=== PATIENT | male | born 1935 | race Caucasian/White ===

== ENCOUNTER 2017-01-15 00:53 | Inpatient (IN) ==
[2017-01-15] MEDS ORDERED: *HR* Morphine 2 MG/ML SYRINGE IVP ONE (01:12)
[2017-01-15] MEDS ORDERED: Ondansetron 4 MG/2 ML VIAL IVP ONE (01:12)
--- NOTE | 2017-01-15 01:15 | Emergency Department Note ---
Disposition Clinical Impression: Pancreatitis Qualifiers: Chronicity: acute Pancreatitis type: unspecified pancreatitis type Acute pancreatitis complication: unspecified Qualified Code(s): K85.90 - Acute pancreatitis without necrosis or infection, unspecified Disposition: Admitted As Inpatient Condition: Fair Referrals: Tamiko Cortes MD [Primary Care Provider] - Forms: ED Satisfaction Letter, Work/School Release Time of Disposition: 02:48 Abdominal Pain HPI - General Chief Complaint: ED Abdominal Pain Stated Complaint: abd pain, vomiting Time Seen by Provider: 01/15/17 01:02 Source: patient Mode of arrival: ambulatory Limitations: no limitations Nursing Notes Reviewed: Yes Vital Signs Reviewed: Yes - History of Present Illness HPI Narrative: An 81-year-old male with no previous abdominal surgeries, 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 The patient states he began expressing his abdominal pain roughly 3-4 hours ago. The patient states he has had 5 episodes of vomiting over the past 4 hours. The patient denies any black or bloody stools, hematemesis, chest pain, difficulty breathing. The patient denies any previous history of any other abdominal process or to this in the past. Patient denies any other complaints at this time and he is uncomfortable at this time. Pt Subjective Complaint: abdominal pain Onset (ago): hour(s) (4-5) Location: epigastric Pain Severity: severe Pain Scale: 8 Quality: stabbing Radiation: none Migration to: no migration Improves with: nothing Worsens with: nothing Associated symptoms: Reports: nausea, vomiting Treatments prior to arrival: none - Related Data Home Medications Medication Instructions Recorded Confirmed Atorvastatin Calcium [Lipitor] 80 mg PO DAILY 01/15/17 01/15/17 Finasteride [Proscar] 5 mg PO DAILY 01/15/17 01/15/17 Losartan Potassium 25 mg PO DAILY 01/15/17 01/15/17 Melatonin/Pyridoxine HCl (B6) 1 each PO HS PRN 01/15/17 01/15/17 [Melatonin 3 mg Tablet] Metoprolol Tartrate [Lopressor] 25 mg PO DAILY 01/15/17 01/15/17 Spironolactone [Aldactone] 25 mg PO BID 01/15/17 01/15/17 Tamsulosin [Flomax] 0.4 mg PO DAILY 01/15/17 01/15/17 Torsemide [Demadex] 20 mg PO DAILY 01/15/17 01/15/17 Warfarin Sodium 2.5 mg PO WD 01/15/17 01/15/17 Warfarin Sodium 5 mg PO 6XD 01/15/17 01/15/17 Allergies Allergy/AdvReac Type Severity Reaction Status Date / Time Sulfa (Sulfonamide Allergy Rash Verified 01/15/17 00:56 Antibiotics) All systems ED: reviewed and negative except as stated. Constitutional: Denies: fever, chills, weakness, weight change Cardiovascular: Denies: chest pain, palpitations, dyspnea on exertion, edema, syncope Respiratory: Denies: cough, dyspnea, wheezes, hemoptysis, stridor Gastrointestinal: Reports: abdominal pain, nausea, vomiting. Denies: diarrhea, constipation, hematemesis, melena, hematochezia Genitourinary: Denies: urgency, dysuria, frequency, hematuria Musculoskeletal: Denies: back pain, neck pain, arthralgia, myalgia Neurological: Denies: headache, weakness, numbness, paresthesias, confusion, abnormal gait, vertigo Abdominal Pain PMH - Past Medical History Medical history: Reports: atrial fibrillation, CHF, coronary artery disease, hyperlipidemia, hypertension, osteoporosis Male Surgical History: Reports: pacemaker/AICD Psychiatric history: Reports: no psych history - Social History Smoking status: Never smoker Alcohol use: Reports: none Drug use: Reports: none Physical Exam - General Limitations: no limitations General appearance: alert, in distress (Due to pain) - Head Head exam: atraumatic, normocephalic, normal inspection - Eye Eye exam: Present: normal appearance, PERRL, EOMI - ENT ENT exam: normal exam, normal oropharynx, mucous membranes moist - Neck Neck exam: Present: normal inspection, full ROM, trachea midline - Chest Chest inspection: Present: normal inspection, symmetric chest wall rise - Respiratory Respiratory exam: Present: normal lung sounds bilaterally - Cardiovascular Cardiovascular exam: Present: regular rate, normal rhythm, normal heart sounds - Abdominal Exam Abdominal exam: Present: soft, tenderness (Epigastric), Zavala's sign. Absent: distention, guarding, rebound, rigidity, psoas sign, obturator sign, Rovsing's sign, tenderness at McBurney's Point, pulsatile mass, hernia - Extremities Exam Extremities exam: Present: normal inspection, full ROM. Absent: tenderness, pedal edema Course Vital Signs Temperature 98.0 F 01/15/17 00:56 Pulse Rate 69 01/15/17 00:56 Respiratory Rate 18 01/15/17 00:56 Blood Pressure 128/72 01/15/17 00:56 O2 Sat by Pulse Oximetry 96 01/15/17 00:56 Temperature 98.0 F 01/15/17 00:56 Pulse Rate 78 01/15/17 01:46 Respiratory Rate 18 01/15/17 01:46 Blood Pressure 127/71 01/15/17 01:46 O2 Sat by Pulse Oximetry 95 01/15/17 02:09 Oxygen Delivery Oxygen Delivery Room Air Abdominal Pain - MDM Narrative Medical decision making narrative: Patient CT scan demonstrates acute pancreatitis. There are other review incidental findings noted as well including granulamtous disease as well as enlarged prostate. Patient made aware. The patient's lipase is elevated at 11, 915. The patient's vomiting and pain is under control at this time. He is resting comfortably in the bed. He will admit patient to the hospitalist. Accepted by Dr. Georges. - Lab Data Lab results reviewed: Yes I reviewed the patient's lab results. Result diagrams: 01/15/17 01:22 01/15/17 01:22 Lab Results 01/15/17 01/15/17 01/15/17 Range/Units 01:10 01:22 01:22 WBC 17.5 H (4.3-11.1) K/mcL RBC 4.71 (4.19-5.50) M/mcL Hgb 14.7 (12.9-16.9) g/dL Hct 44.9 (37.5-50.1) % MCV 95.3 (83.0-100.0) fL MCH 31.2 (28.0-33.3) pg MCHC 32.7 (31.6-35.5) g/dL RDW 14.0 (11.5-14.5) % Plt Count 171 (140-400) K/mcL MPV 10.6 (9.4-12.4) fL Immature Gran % 0.7 (0-4) % Seg Neutrophils % 89.5 % Lymphocytes % 4.5 % Monocytes % 4.5 % Eosinophils % 0.2 % Basophils % 0.6 % Neutrophils # 15.6 H (1.6-8.9) K/mcL Lymphocytes # 0.8 (0.6-4.6) K/mcL Monocytes # 0.8 (0.0-1.3) K/mcL Eosinophils # 0.0 (0.0-0.6) K/mcL Basophils # 0.1 (0.0-0.2) K/mcL PT 32.9 H (9.4-12.1) Seconds INR 3.0 APTT 39.1 H (26.0-36.0) Seconds Sodium (136-145) mEq/L Potassium (3.5-4.5) mEq/L Chloride (98-109) mEq/L Carbon Dioxide (19-29) mEq/L BUN (8-26) mg/dL Creatinine (0.72-1.25) mg/dL Est GFR ( Amer) (> 60) Est GFR (Non-Af Amer) (> 60) BUN/Creatinine Ratio (6-26) Glucose (70-99) mg/dL Calculated Osmolality (280-300) Lactic Acid (0.5-2.2) mmol/L Calcium (8.6-10.8) mg/dL Total Bilirubin (0.2-1.2) mg/dL AST (5-34) Units/L ALT (0-55) Units/L Alkaline Phosphatase (38-126) Units/L Troponin I (0-0.03) ng/mL Serum Total Protein (6.0-8.3) g/dL Albumin (3.5-5.0) g/dL Globulin (2.4-3.5) g/dL Albumin/Globulin Ratio (1.1-2.2) Lipase (8-78) Units/L Urine Color Yellow (Yellow) Urine Clarity Clear (Clear) Urine pH 5.5 (5.0-8.0) pH Units Ur Specific [place] 1.018 (1.010-1.025) Urine Protein Negative (Neg-Trace) mg/dL Urine Glucose (UA) Normal (Normal) mg/dL Urine Ketones Negative (Negative) mg/dL Urine Blood Negative (Negative) Urine Nitrite Negative (Negative) Urine Bilirubin Negative (Negative) Urine Urobilinogen Normal (Normal) mg/dL Ur Leukocyte Esterase Negative (Negative) Ur Culture Indicated? NO (NO) 01/15/17 01/15/17 01/15/17 Range/Units 01:22 01:22 01:22 WBC (4.3-11.1) K/mcL RBC (4.19-5.50) M/mcL Hgb (12.9-16.9) g/dL Hct (37.5-50.1) % MCV (83.0-100.0) fL MCH (28.0-33.3) pg MCHC (31.6-35.5) g/dL RDW (11.5-14.5) % Plt Count (140-400) K/mcL MPV (9.4-12.4) fL Immature Gran % (0-4) % Seg Neutrophils % % Lymphocytes % % Monocytes % % Eosinophils % % Basophils % % Neutrophils # (1.6-8.9) K/mcL Lymphocytes # (0.6-4.6) K/mcL Monocytes # (0.0-1.3) K/mcL Eosinophils # (0.0-0.6) K/mcL Basophils # (0.0-0.2) K/mcL PT (9.4-12.1) Seconds INR APTT (26.0-36.0) Seconds Sodium 140 (136-145) mEq/L Potassium 4.4 (3.5-4.5) mEq/L Chloride 104 (98-109) mEq/L Carbon Dioxide 22 (19-29) mEq/L BUN 29 H (8-26) mg/dL Creatinine 1.42 H (0.72-1.25) mg/dL Est GFR ( Amer) 58 L (> 60) Est GFR (Non-Af Amer) 48 L (> 60) BUN/Creatinine Ratio 20 (6-26) Glucose 108 H (70-99) mg/dL Calculated Osmolality 296 (280-300) Lactic Acid 1.1 (0.5-2.2) mmol/L Calcium 8.9 (8.6-10.8) mg/dL Total Bilirubin 0.5 (0.2-1.2) mg/dL AST 31 (5-34) Units/L ALT 23 (0-55) Units/L Alkaline Phosphatase 93 (38-126) Units/L Troponin I 0.02 (0-0.03) ng/mL Serum Total Protein 7.2 (6.0-8.3) g/dL Albumin 3.8 (3.5-5.0) g/dL Globulin 3.4 (2.4-3.5) g/dL Albumin/Globulin Ratio 1.1 (1.1-2.2) Lipase 83381 H (8-78) Units/L Urine Color (Yellow) Urine Clarity (Clear) Urine pH (5.0-8.0) pH Units Ur Specific [place] (1.010-1.025) Urine Protein (Neg-Trace) mg/dL Urine Glucose (UA) (Normal) mg/dL Urine Ketones (Negative) mg/dL Urine Blood (Negative) Urine Nitrite (Negative) Urine Bilirubin (Negative) Urine Urobilinogen (Normal) mg/dL Ur Leukocyte Esterase (Negative) Ur Culture Indicated? (NO) - Radiology Data Radiology results reviewed: Yes I reviewed the patient's radiology results. - EKG Data EKG attestation: Yes I reviewed and interpreted this EKG. EKG results narrative: Heart rate 80 bpm. QTc 467 ms. Normal axis. Normal sinus rhythm with electronic ventricular pacemaker. No ST elevation or ST depression noted. PVC noted. Similar to EKG from 09/08/2010. No acute changes noted. Attestation Statement - Attestation Attestation: I, Les Beckwith MD, personally evaluated this patient and discussed their management with the resident physician. I reviewed the resident's note and agree with the documented findings, medical decision making, and plan of care. 81-year-old male presents to the emergency department with a complaint of acute onset of nausea and vomiting and epigastric abdominal pain about 8 PM this evening. He states he vomited about 7 times. The pain radiates through to the back. No fever. No diarrhea. No prior history of similar problems. On examination patient is a well-developed well-nourished elderly male in no acute distress. He is alert and oriented 3. There is no cyanosis or diaphoresis. Chest is nontender to palpation. Breath sounds are clear and equal bilaterally. Heart regular rate and rhythm. Abdomen soft with normal bowel sounds. Mild epigastric tenderness. No guarding or rebound tenderness. Labs reviewed. WBC 17.5. Lipase 11,915. CT shows acute pancreatitis. The hospitalist, Dr. Georges, was consulted and accepted admission of the patient.
[2017-01-15 01:19] LABS: Bilirubin,Urine Negative (Negative); Blood,Urine Negative (Negative); Clarity,Urine Clear (Clear); Color,Urine Yellow (Yellow); Glucose,Urine (UA) Normal (Normal); Ketones,Urine Negative (Negative); Leukocyte Esterase,Urine Negative (Negative); Nitrite,Urine Negative (Negative); PH,Urine 5.5 pH Units (5.0-8.0); Protein,Urine Negative (Neg-Trace); Specific Gravity,Urine 1.018 (1.010-1.025); Urobilinogen,Urine Normal (Normal)
[2017-01-15 01:32] LABS: Basophils # 0.1 K/mcL (0.0-0.2); Basophils % 0.6 %; Eosinophils % 0.2 %; Hematocrit 44.9 % (37.5-50.1); Hemoglobin 14.7 g/dL (12.9-16.9); Immature Granulocytes % 0.7 % (0-4); Lymphocytes # 0.8 K/mcL (0.6-4.6); Lymphocytes % 4.5 %; Mean Corpuscular HGB Conc 32.7 g/dL (31.6-35.5); Mean Corpuscular Hemoglobin 31.2 pg (28.0-33.3); Mean Corpuscular Volume 95.3 fL (83.0-100.0); Mean Platelet Volume 10.6 fL (9.4-12.4); Monocytes # 0.8 K/mcL (0.0-1.3); Monocytes % 4.5 %; Neutrophils # 15.6 K/mcL (1.6-8.9); Platelet Count 171 K/mcL (140-400); Red Blood Count 4.71 M/mcL (4.19-5.50); Segmented Neutrophils % 89.5 %
[2017-01-15 01:37] LABS: Prothrombin Time 32.9 Seconds (9.4-12.1)
[2017-01-15 01:39] LABS: Activated Partial Thrombo Time 39.1 Seconds (26.0-36.0)
[2017-01-15 01:46] LABS: Albumin 3.8 g/dL (3.5-5.0); Albumin/Globulin Ratio 1.1 (1.1-2.2); Bilirubin,Total 0.5 mg/dL (0.2-1.2); Calcium 8.9 mg/dL (8.6-10.8); Globulin 3.4 g/dL (2.4-3.5); Potassium 4.4 mEq/L (3.5-4.5); Total Protein 7.2 g/dL (6.0-8.3)
[2017-01-15] MEDS ORDERED: 0.9 % Sodium Chloride 1,000 ML IVC ONE (02:01)
--- NOTE | 2017-01-15 03:29 | Internal Med History&Physical ---
Date of Encounter: 01/15/17 Time of Encounter: 03:26 Assessment and Plan (1) Acute pancreatitis Current visit: Yes Status: Acute Etiology unclear. Maybe related to alcohol intake. He has tiny stones in the gallbladder, but transaminases, alkaline phosphatase and bilirubin are normal. Repeat liver function tests in morning. Right upper quadrant ultrasound. Gastroenterology consultation. We keep patient strictly NPO, hydrate, pain control with morphine. His white count to 17,000. He has no fever. CT scan shows no evidence of abscess or necrotizing pancreatitis. Nonetheless CT scan was non-contrasted Qualifiers: Qualified Code(s): K85.90 - Acute pancreatitis without necrosis or infection , unspecified (2) Atrial fibrillation Current visit: Yes Status: Acute He is on Coumadin. This can be somewhat concerning impatient with severe acute pancreatitis. Qualifiers: Qualified Code(s): I48.91 - Unspecified atrial fibrillation (3) History of heart valve replacement with porcine valve Current visit: Yes Status: Acute INR is 3. Coumadin can be somewhat concerning impatient with severe acute pancreatitis. Internal Medicine - H&P: HPI Chief complaint: abdominal pain History of present illness: Mr. 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 3 hours prior to arrival to emergency room patients started experiencing severe 8 out of 10 in severity upper mid abdominal pain radiating to his back associated with nausea recurrent episodes of nonbloody emesis. he had approximately 7 episodes of vomiting prior to arrival to ER. Noncontrast CT scan of abdomen and pelvis shows acute pancreatitis. Patient denies any prior similar episodes. Patient denies any fever or chills. Denies any known prior history of gallbladder disease. Drinks alcohol occasionally as drink with yesterday 2 to 3 drinks on weekends. Patient takes Coumadin for prothetic valve and atrial fibrillation Past Med Surg Social Fam HX - Past Medical History Medical history: atrial fibrillation, CHF, coronary artery disease, hyperlipidemia, hypertension, osteoporosis Psychiatric history: no psych history - Social History Smoking Status: Never smoker Smokeless Tobacco Status: No Alcohol use: none Drug use: none Internal Medicine - H&P: Meds Atorvastatin Calcium [Lipitor] 80 mg PO DAILY 01/15/17 [History] Finasteride [Proscar] 5 mg PO DAILY 01/15/17 [History] Losartan Potassium 25 mg PO DAILY 01/15/17 [History] Melatonin/Pyridoxine HCl (B6) [Melatonin 3 mg Tablet] 1 each PO HS PRN 01/15/17 [History] Metoprolol Tartrate [Lopressor] 25 mg PO DAILY 01/15/17 [History] Spironolactone [Aldactone] 25 mg PO BID 01/15/17 [History] Tamsulosin [Flomax] 0.4 mg PO DAILY 01/15/17 [History] Torsemide [Demadex] 20 mg PO DAILY 01/15/17 [History] Warfarin Sodium 2.5 mg PO WD 01/15/17 [History] Warfarin Sodium 5 mg PO 6XD 01/15/17 [History] 3 Allergy/AdvReac Type Severity Reaction Status Date / Time Sulfa (Sulfonamide Allergy Rash Verified 01/15/17 00:56 Antibiotics) All Systems PM: A 10-system review of systems was performed and is negative for pertinent findings except as documented above in the HPI. Review of systems: 10 point review of systems is negative except for HPI - Constitutional Vitals: Temp Pulse Resp BP Pulse Ox 98.0 F 78 18 127/71 95 01/15/17 00:56 01/15/17 01:46 01/15/17 01:46 01/15/17 01:46 01/15/17 02:09 Exam: Gen.: patient is alert oriented times 3 not in distress. Cardiac: Audible metallic click of mitral valve chest: fair air entry. no active wheezing. No crackles or bronchial breathing. abdomen: soft tenderness in upper mid abdomen. No rebound tenderness, guarding or rigidity neuro: no focal deficit Internal Med - H&P Results - Labs CBC & Chem 7: 01/15/17 01:22 01/15/17 01:22
[2017-01-15] MEDS: *HR* Morphine 2 MG/ML SYRINGE IVP PRN ×2 (04:36→16:12)
[2017-01-15] MEDS: D5% in 0.9% NACL 1,000 ML IVC SCH ×3 (04:37→23:47)
[2017-01-15] MEDS: Pantoprazole 40 MG VIAL IVP SCH (08:42)
[2017-01-15] MEDS: Finasteride 5 MG TABLET PO SCH (08:42)
[2017-01-15] MEDS: Fluticasone Propionate Nasal 50 MCG/SPRAY BOTTLE NS SCH (08:43)
[2017-01-15 08:59] LABS: Basophils % 0.3 %; Eosinophils % 0.1 %; Immature Granulocytes % 0.3 % (0-4); Lymphocytes # 0.4 K/mcL (0.6-4.6); Lymphocytes % 3.3 %; Mean Corpuscular HGB Conc 33.3 g/dL (31.6-35.5); Mean Corpuscular Volume 95.9 fL (83.0-100.0); Mean Platelet Volume 10.4 fL (9.4-12.4); Monocytes # 0.4 K/mcL (0.0-1.3); Monocytes % 3.2 %; Neutrophils # 11.1 K/mcL (1.6-8.9); Platelet Count 146 K/mcL (140-400); Red Blood Count 4.38 M/mcL (4.19-5.50); Red Cell Distribution Width 14.3 % (11.5-14.5); Segmented Neutrophils % 92.8 %
[2017-01-15 09:17] LABS: Chol/HDL Ratio 2.5 (0-4.9)
[2017-01-15 09:19] LABS: Alanine Aminotransferase 21 Units/L (0-55); Albumin 3.5 g/dL (3.5-5.0); Albumin/Globulin Ratio 1.3 (1.1-2.2); Alkaline Phosphatase 84 Units/L (38-126); Aspartate Amino Transferase 25 Units/L (5-34); BUN/Creatinine Ratio 21 (6-26); Bilirubin,Direct 0.3 mg/dL (0.0-0.5); Bilirubin,Indirect 0.3 mg/dL (0.0-1.2); Bilirubin,Total 0.6 mg/dL (0.2-1.2); Blood Urea Nitrogen 24 mg/dL (8-26); Calcium 8.3 mg/dL (8.6-10.8); Carbon Dioxide 27 mEq/L (19-29); Chloride 108 mEq/L (98-109); Globulin 2.7 g/dL (2.4-3.5); Glucose 177 mg/dL (70-99); Osmolality,Calculated 302 (280-300); Potassium 4.3 mEq/L (3.5-4.5); Sodium 142 mEq/L (136-145); Total Protein 6.2 g/dL (6.0-8.3); eGFR For African Americans > 60 (> 60); eGFR For Non-African Americans > 60 (> 60)
[2017-01-16] MEDS: D5% in 0.9% NACL 1,000 ML IVC SCH ×2 (04:44→13:44)
[2017-01-16] MEDS: Ondansetron 4 MG/2 ML VIAL IVP PRN ×4 (06:49→20:50)
[2017-01-16] MEDS: Fluticasone Propionate Nasal 50 MCG/SPRAY BOTTLE NS SCH (07:28)
[2017-01-16] MEDS: Finasteride 5 MG TABLET PO SCH (07:30)
[2017-01-16] MEDS: Pantoprazole 40 MG VIAL IVP SCH (07:31)
[2017-01-16 07:55] LABS: Basophils # 0.1 K/mcL (0.0-0.2); Basophils % 0.3 %; Hematocrit 41.4 % (37.5-50.1); Hemoglobin 13.5 g/dL (12.9-16.9); Immature Granulocytes % 0.6 % (0-4); Lymphocytes # 0.3 K/mcL (0.6-4.6); Lymphocytes % 1.9 %; Mean Corpuscular HGB Conc 32.6 g/dL (31.6-35.5); Mean Corpuscular Hemoglobin 31.5 pg (28.0-33.3); Mean Corpuscular Volume 96.5 fL (83.0-100.0); Monocytes # 0.9 K/mcL (0.0-1.3); Monocytes % 5.3 %; Neutrophils # 14.8 K/mcL (1.6-8.9); Platelet Count 143 K/mcL (140-400); Red Blood Count 4.29 M/mcL (4.19-5.50); Red Cell Distribution Width 14.8 % (11.5-14.5); Segmented Neutrophils % 91.9 %
[2017-01-16 08:04] LABS: INR 4.7
[2017-01-16 08:05] LABS: Prothrombin Time 52.1 Seconds (9.4-12.1)
[2017-01-16 08:32] LABS: BUN/Creatinine Ratio 12 (6-26); Calcium 8.2 mg/dL (8.6-10.8); Carbon Dioxide 23 mEq/L (19-29); Chloride 114 mEq/L (98-109); Glucose 160 mg/dL (70-99); Osmolality,Calculated 298 (280-300); Potassium 3.6 mEq/L (3.5-4.5); Sodium 143 mEq/L (136-145); eGFR For African Americans > 60 (> 60); eGFR For Non-African Americans > 60 (> 60)
[2017-01-16 08:33] LABS: Blood Urea Nitrogen 10 mg/dL (8-26)
--- NOTE | 2017-01-16 10:46 | Gastroenterology Consult Note ---
<Felicia Cabrera - Last Filed: 01/16/17 15:55> Date of Encounter: 01/16/17 Time of Encounter: 09:00 - Assessment and plan (1) Acute pancreatitis Current Visit: Yes Status: Acute Assessment and plan: Lipase is improving. Continue IVF and NPO. Monitor labs. Needs surgery consult for possible cholecystectomy. - Time Spent With Patient Total time spent is greater than 50% in coordination of care (as documented) at patient's floor/unit and/or counseling patient: GI History of Present Illness - Data of Consult Patient: new to practice Consult date: 01/16/17 Requesting Physician: Gumaro Maravilla - Consult Narrative Reason for consult: abdominal pain History of present illness: Mr. Taylor is a 81 year old male who presented with abdominal pain, nausea and vomiting. He has a pmhx of valvular heart disease with replacements and is on coumadin at home. He also has a hx of a-fib, CHF, CAD, HLD, HTN and osteoporosis. He reports having a couple alcoholic drinks on Monday then began having upper abdominal pain, nausea and vomiting x 7 episodes. He reports that he drinks 2-3 drinks Fridays through Sundays but none during the week. He denies any diarrhea, bloody stools or constipations. He reports daily BMs. He denies any other sick contacts. He had low grade fever last night. He was started on antibiotics and has been NPO. [place] admission [place] [address] and has decreased to 519, INR today 4.7, total bili 0.6, ast 25 alt 21, albumin 3.[address] abdomen showed acute pancreatitis, cholelithiasis and diverticulosis. Abdominal ultrasound showed gallbladder polyp and gallbladder wall thickening. Colonoscopy: 11 years ago EGD: denies NSAIDS: denies ASA: denies Anticougulants: coumadin Past Med Surg Social Fam HX - Past Medical History Medical history: atrial fibrillation, CHF, coronary artery disease, hyperlipidemia, hypertension, osteoporosis Psychiatric history: no psych history - Social History Smoking Status: Never smoker Smokeless Tobacco Status: No Alcohol use: none Drug use: none - Gastrointestinal Additional Comments: GI: as per [facility] GENERAL: denies fever, has some chills EYES: denies yellow discoloration ENT: denies pain with swallowing or difficulty swallowing CARDIO: denies chest pain, palpitations RESP: No Shortness of breath with exertion : reports dark colored urine NEURO: denies any weakness HEME: Denies any bruising MS: denies joint pain, joint swelling or back pain. DERM: denies rash or itching PSYCH: Denies history of anxiety or depression - Constitutional Vitals: Temp Pulse Resp BP Pulse Ox 99.7 F H 70 15 134/78 98 01/16/17 06:47 01/16/17 06:47 01/16/17 06:47 01/16/17 06:47 01/16/17 06:47 Exam: CONSTITUTIONAL:~alert, no acute distress.~HEAD:~normocephalic.~EYES:~no jaundice.~NECK:~no obvious swelling.~HEART:~regular rate and rhythm, no murmurs. ~LUNGS:~bilateral good air entry.~ABDOMEN:~non distended, soft, tenderness to periumbilical area, no masses pulpable, no organomegaly.~RECTAL EXAM:~Deferred.~ EXTREMITIES:~no clubbing, cyanosis or edema.~SKIN:~no stigmata of chronic liver disease.~NEUROLOGIC:~no obvious focal defect.~~~~ Results - Labs CBC & Chem 7: 01/16/17 07:48 01/16/17 07:48 Labs: Last Result Calcium 8.2 mg/dL (8.6-10.8) L 01/16/17 07:48 Troponin I 0.02 ng/mL (0-0.03) 01/15/17 01:22 C-Reactive Protein 4 mg/L (Less than 5) 01/15/17 01:22 Triglycerides 66 mg/dL (< 150) 01/15/17 08:45 Entire Visit Hgb 13.5 g/dL (12.9-16.9) 01/16/17 07:48 Hct 41.4 % (37.5-50.1) 01/16/17 07:48 PT 52.1 Seconds (9.4-12.1) H* D 01/16/17 07:48 Total Bilirubin 0.6 mg/dL (0.2-1.2) 01/15/17 08:45 AST 25 Units/L (5-34) 01/15/17 08:45 ALT 21 Units/L (0-55) 01/15/17 08:45 Lipase 519 Units/L (8-78) H 01/16/17 07:48 - ABG ABG results: PT/INR, D-dimer PT 52.1 Seconds (9.4-12.1) H* D 01/16/17 07:48 - Impressions Impressions Abdomen Ultrasound 01/16/17 08:00 IMPRESSION: 1. Echogenic focus in the gallbladder measuring up to 1.4 cm with no mobility, favored to represent a gallbladder polyp. Given size, internal surgical consultation is recommended. Questionable additional 0.2 cm gallbladder polyp 2. While there is no evidence of choledocholithiasis, the common bile duct is difficult evaluate by sonography and was suboptimally evaluated on this study due to overlying bowel gas. If there is persistent clinical concern, CT can be performed for further evaluation. 3. Nonspecific gallbladder wall thickening. D/ / 01/16/2017 08:57:[address] MD / reg Interpreting Provider: Noel Lane MD Consult Discharge Plan - Plan Referrals: Tamiko Cortes MD [Primary Care Provider] - <MarshaKishore - Last Filed: 01/16/17 17:50> Date of Encounter: 01/16/17 Time of Encounter: 14:00 - Time Spent With Patient Total time spent is greater than 50% in coordination of care (as documented) at patient's floor/unit and/or counseling patient: GI History of Present Illness - Data of Consult Requesting Physician: Gumaro Maravilla - Consult Narrative History of present illness: Mr. Taylor is a 81 year old male - Constitutional Vitals: Temp Pulse Resp BP Pulse Ox 99.2 F 79 15 123/70 97 01/16/17 15:36 01/16/17 15:36 01/16/17 15:36 01/16/17 15:36 01/16/17 15:36 Results - Labs CBC & Chem 7: 01/16/17 07:48 01/16/17 07:48 Labs: Last Result Calcium 8.2 mg/dL (8.6-10.8) L 01/16/17 07:48 Troponin I 0.02 ng/mL (0-0.03) 01/15/17 01:22 C-Reactive Protein 4 mg/L (Less than 5) 01/15/17 01:22 Triglycerides 66 mg/dL (< 150) 01/15/17 08:45 Entire Visit Hgb 13.5 g/dL (12.9-16.9) 01/16/17 07:48 Hct 41.4 % (37.5-50.1) 01/16/17 07:48 PT 52.1 Seconds (9.4-12.1) H* D 01/16/17 07:48 Total Bilirubin 0.6 mg/dL (0.2-1.2) 01/15/17 08:45 AST 25 Units/L (5-34) 01/15/17 08:45 ALT 21 Units/L (0-55) 01/15/17 08:45 Lipase 519 Units/L (8-78) H 01/16/17 07:48 - ABG ABG results: PT/INR, D-dimer PT 52.1 Seconds (9.4-12.1) H* D 01/16/17 07:48 - Impressions Impressions Abdomen Ultrasound 01/16/17 08:00 IMPRESSION: 1. Echogenic focus in the gallbladder measuring up to 1.4 cm with no mobility, favored to represent a gallbladder polyp. Given size, internal surgical consultation is recommended. Questionable additional 0.2 cm gallbladder polyp 2. While there is no evidence of choledocholithiasis, the common bile duct is difficult evaluate by sonography and was suboptimally evaluated on this study due to overlying bowel gas. If there is persistent clinical concern, CT can be performed for further evaluation. 3. Nonspecific gallbladder wall thickening. D/ / 01/16/2017 08:57:[address] MD / reg Interpreting Provider: Noel Lane MD - Attending Attestation I examined this patient and my medical decision-making was reviewed with the Resident Physician. I agree with the documented findings, disposition and treatment plan as described except to the extent set forth below. pt with GS pancreatitis. GB with 15 mm polyp. Rec: Surgical eval for rama
--- NOTE | 2017-01-16 18:40 | Electrocardiograph Report ---
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
--- NOTE | 2017-01-16 18:52 | Internal Med Progress Note ---
Date of Encounter: 01/16/17 Time of Encounter: 10:00 - Assessment and plan (1) Acute pancreatitis Current Visit: Yes Status: Acute Assessment and plan: -Patient reports that abdominal discomfort has improved. -Lipase levels have improved [id number] to [id number]. -Right upper quadrant ultrasound showed large polyp in gallbladder and surgical consult recommended. -Patient adamant about leaving hospital by Monday to make a trip. -Patient's symptoms are improving and labs are improving as above so we will consider patient to follow up with surgery as an outpatient. Qualifiers: Pancreatitis type: unspecified pancreatitis type Acute pancreatitis complication: unspecified Qualified Code(s): K85.90 - Acute pancreatitis without necrosis or infection, unspecified (2) Atrial fibrillation Current Visit: Yes Status: Acute Assessment and plan: -Rate controlled; continue home meds -Coumadin currently being held due to supratherapeutic levels. Qualifiers: Atrial fibrillation type: chronic Qualified Code(s): I48.2 - Chronic atrial fibrillation (3) History of heart valve replacement with porcine valve Current Visit: Yes Status: Acute Assessment and plan: -Coumadin being held as above - Subjective Interval history: Patient reports that abdominal discomfort has improved this morning and lipase has improved as well. - Constitutional Vitals: Temp Pulse Resp BP Pulse Ox 99.2 F 79 15 123/70 97 01/16/17 15:36 01/16/17 15:36 01/16/17 15:36 01/16/17 15:36 01/16/17 15:36 - GI/Abdominal GI/Abdominal exam: Present: normal bowel sounds, soft, tenderness (Mild tenderness), no peritoneal signs. Absent: distended Internal Medicine: Result - Labs CBC & Chem 7: 01/16/17 07:48 01/16/17 07:48 Labs: Short CBC 01/16/17 Range/Units 07:48 WBC 16.1 H (4.3-11.1) K/mcL Hgb 13.5 (12.9-16.9) g/dL Hct 41.4 (37.5-50.1) % Plt Count 143 (140-400) K/mcL Neutrophils # 14.8 H (1.6-8.9) K/mcL BMP 01/16/17 07:48 Sodium 143 Potassium 3.6 Chloride 114 H Carbon Dioxide 23 BUN 10 D Creatinine 0.86 Glucose 160 H Calcium 8.2 L - ABG Interpretation ABG results: PT/INR, D-dimer PT 52.1 Seconds (9.4-12.1) H* D 01/16/17 07:48 - Impressions Impressions Abdomen Ultrasound 01/16/17 08:00 IMPRESSION: 1. Echogenic focus in the gallbladder measuring up to 1.4 cm with no mobility, favored to represent a gallbladder polyp. Given size, internal surgical consultation is recommended. Questionable additional 0.2 cm gallbladder polyp 2. While there is no evidence of choledocholithiasis, the common bile duct is difficult evaluate by sonography and was suboptimally evaluated on this study due to overlying bowel gas. If there is persistent clinical concern, CT can be performed for further evaluation. 3. Nonspecific gallbladder wall thickening. D/ / 01/16/2017 08:57:[address] MD / reg Interpreting Provider: Noel Lane MD - VTE Documentation of Mechanical Device: Intermittent pneumatic compression device Consult Discharge Plan - Plan Referrals: Tamiko Cortes MD [Primary Care Provider] -
[2017-01-16] MEDS: *HR* Morphine 2 MG/ML SYRINGE IVP PRN (20:50)
[2017-01-17] MEDS: D5% in 0.9% NACL 1,000 ML IVC SCH ×2 (03:00→15:48)
[2017-01-17] MEDS: Spironolactone 25 MG TABLET PO SCH (07:27)
[2017-01-17] MEDS: Torsemide 20 MG TABLET PO SCH (07:28)
[2017-01-17] MEDS: Fluticasone Propionate Nasal 50 MCG/SPRAY BOTTLE NS SCH (07:28)
[2017-01-17] MEDS: Pantoprazole 40 MG VIAL IVP SCH (07:29)
[2017-01-17] MEDS: Finasteride 5 MG TABLET PO SCH (07:29)
[2017-01-17 08:09] LABS: Basophils # 0.1 K/mcL (0.0-0.2); Basophils % 0.4 %; Eosinophils # 0.1 K/mcL (0.0-0.6); Eosinophils % 0.3 %; Hematocrit 39.7 % (37.5-50.1); Hemoglobin 12.9 g/dL (12.9-16.9); Immature Granulocytes % 0.6 % (0-4); Lymphocytes # 0.5 K/mcL (0.6-4.6); Lymphocytes % 2.6 %; Mean Corpuscular HGB Conc 32.5 g/dL (31.6-35.5); Mean Corpuscular Hemoglobin 31.7 pg (28.0-33.3); Mean Corpuscular Volume 97.5 fL (83.0-100.0); Mean Platelet Volume 10.3 fL (9.4-12.4); Monocytes # 1.1 K/mcL (0.0-1.3); Monocytes % 6.3 %; Neutrophils # 15.5 K/mcL (1.6-8.9); Platelet Count 139 K/mcL (140-400); Red Blood Count 4.07 M/mcL (4.19-5.50); Red Cell Distribution Width 14.6 % (11.5-14.5); Segmented Neutrophils % 89.8 %
[2017-01-17 08:20] LABS: INR 4.7; Prothrombin Time 52.7 Seconds (9.4-12.1)
[2017-01-17 08:21] LABS: BUN/Creatinine Ratio 8 (6-26); Blood Urea Nitrogen 7 mg/dL (8-26); Calcium 8.2 mg/dL (8.6-10.8); Carbon Dioxide 23 mEq/L (19-29); Chloride 109 mEq/L (98-109); Glucose 108 mg/dL (70-99); Osmolality,Calculated 287 (280-300); Potassium 3.6 mEq/L (3.5-4.5); Sodium 139 mEq/L (136-145); eGFR For African Americans > 60 (> 60); eGFR For Non-African Americans > 60 (> 60)
[2017-01-17 12:05] LABS: Albumin/Globulin Ratio 0.9 (1.1-2.2); Amylase 166 Units/L (25-125); Bilirubin,Direct 0.6 mg/dL (0.0-0.5); Bilirubin,Indirect 0.9 mg/dL (0.0-1.2); Lipase 97 Units/L (8-78); Total Protein 5.7 g/dL (6.0-8.3)
[2017-01-17 12:06] LABS: Albumin 2.7 g/dL (3.5-5.0); Bilirubin,Total 1.5 mg/dL (0.2-1.2)
--- NOTE | 2017-01-17 12:14 | Event Note ---
Date of Encounter: 01/17/17 Time of Encounter: 09:10 I independently saw and examined this patient on 01/17/2017, I have reviewed his chart as well. Diagnoses and management plan was discussed with the patient, and the resident physician. 81-year-old male with past medical history of atrial fibrillation on Coumadin, he is admitted and being managed for acute pancreatitis. Workup revealed a gallbladder polyp, gallbladder wall thickening without evidence of choledocholithiasis. General surgery and gastroenterology have been following. On evaluation at the bedside this morning, the patient denies any abdominal pain , he denies new complaints he is adamant on being discharged home tomorrow. However, his white count continues to trend up, he had one episode of low-grade fever overnight 100.1 and his INR remains supratherapeutic. He also now has hyperbilirubinemia, his lipase is 97 now and was [id number] on admission. He has no transaminitis He is pending surgical evaluation. On physical examination, he is afebrile at time of examination, she is not tachycardic is in no form of respiratory distress.. His abdomen is soft and nontender, Zavala sign is negative. He has no pedal edema. His chest is clear to auscultation bilaterally. Assessment and plan #1 acute pancreatitis: Resolving, continue clear liquid diet. Etiology of pancreatitis may include choledocholithiasis/gallbladder polyp. GI is following #2 supratherapeutic INR: Continue to hold Coumadin. Patient is currently not bleeding. He has no transaminitis. Continue to monitor INR. #3 atrial fibrillation: Heart rate is controlled. Continue current management. #4 hyperbilirubinemia. Possibly secondary to gallbladder polyp. Surgery is on board. #5 gallbladder polyp: Surgery evaluation. #6 Leukocytosis: Worsening, Etiology unknown at this time, patient had a low grade fever overnight, possible abdominal source, he does not have an acute abdomen. Abdomen ultrasound showed nonspecific gall bladder wall thickening. Obtain blood culture and start empiric Zosyn. We will deescalate prn Rest of details as in the resident physicians documentation.
--- NOTE | 2017-01-17 12:58 | Internal Med Progress Note ---
<Pennie Leigh - Last Filed: 01/17/17 12:54> Date of Encounter: 01/17/17 Time of Encounter: 12:54 - Assessment and plan (1) Acute pancreatitis Current Visit: Yes Status: Acute Assessment and plan: Patient reports that abdominal discomfort has resolved Lipase levels have improved [id number] to 519 WBC count increased slightly from 16.[address] abdomen showed acute pancreatitis, no abscess or pseudo cyst. Cholelithiasis. Ultrasound showed large polyp 1.4cm and 0.2cm polyp in gallbladder and surgical consult recommended Patient adamant about leaving hospital by Monday to make a trip -continue clear liquid diet -continue IV fluids -GI consulted and recommended surgery consult -Surgery consulted -will continue to monitor Qualifiers: Pancreatitis type: unspecified pancreatitis type Acute pancreatitis complication: unspecified Qualified Code(s): K85.90 - Acute pancreatitis without necrosis or infection, unspecified (2) Supratherapeutic INR Current Visit: Yes Status: Acute Assessment and plan: Patients INR is supratherapeutic, 4.7 no active bleeding at this time -will continue to hold Coumadin -Will continue to monitor INR (3) Atrial fibrillation Current Visit: Yes Status: Acute Assessment and plan: Rate controlled. continue home meds, metoprolol Coumadin currently being held due to supratherapeutic levels Qualifiers: Atrial fibrillation type: chronic Qualified Code(s): I48.2 - Chronic atrial fibrillation (4) Hyperbilirubinemia Current Visit: Yes Status: Acute Assessment and plan: Hyperbilirubinemia, total bilirubin 1.5, direct bilirubin 0.6 possibly due to the gallbladder polyp Ultrasound did not show evidence of Choledocholithiasis - surgery is following -will continue to monitor bilirubin level (5) Gallbladder polyp Current Visit: Yes Status: Acute Assessment and plan: Ultrasound showed large polyp 1.4cm and 0.2cm polyp in gallbladder and surgical consult recommended see plan above (6) Leukocytosis Current Visit: Yes Status: Acute Assessment and plan: WBC has increased from 16.1 yesterday to 17.2 Today Etiology is currently unknown Patient reports resolved abdominal pain. The abdomen with soft and non-guarding on exam. -Will start empiric zosyn Qualifiers: Qualified Code(s): D72.829 - Elevated white blood cell count, unspecified - Subjective Interval history: Patient is sitting up in bed comfortably watching television. He stated that his abdominal pain is resolved and he is adamant about being discharged tomorrow. He denies fever, chills, nausea, vomiting. He has no complaints. - Constitutional Vitals: Temp Pulse Resp BP Pulse Ox 99.0 F 68 15 109/65 92 01/17/17 10:37 01/17/17 10:37 01/17/17 10:37 01/17/17 10:37 01/17/17 10:37 Exam: Gen.: Vitals noted. No acute distress. AAOx3 HEENT: oropharynx clear, Normocephalic, atraumatic Neck: Supple. No adenopathy. Cardiac: RRR, audible click, +S1/S2 Pulmonary: CTA bilaterally, no wheezes, rales or rhonchi, equal chest expansion Abdomen: soft, nontender, Bowel sounds noted, no guarding, negative Zavala Extremities: no BLE edema, nontender calf, no cyanosis or clubbing Neuro: A&Ox3, moves all extremities Psych: Appropriate mood and behavior Internal Medicine: Result - Labs CBC & Chem 7: 01/17/17 08:02 01/17/17 08:02 Labs: Short CBC 01/17/17 Range/Units 08:02 WBC 17.2 H (4.3-11.1) K/mcL Hgb 12.9 (12.9-16.9) g/dL Hct 39.7 (37.5-50.1) % Plt Count 139 L (140-400) K/mcL Neutrophils # 15.5 H (1.6-8.9) K/mcL BMP 01/17/17 08:02 Sodium 139 Potassium 3.6 Chloride 109 Carbon Dioxide 23 BUN 7 L Creatinine 0.88 Glucose 108 H Calcium 8.2 L Liver Function 01/17/17 Range/Units 11:14 Total Bilirubin 1.5 H D (0.2-1.2) mg/dL Direct Bilirubin 0.6 H (0.0-0.5) mg/dL AST 20 (5-34) Units/L ALT 15 (0-55) Units/L Alkaline Phosphatase 70 (38-126) Units/L Albumin 2.7 L D (3.5-5.0) g/dL - ABG Interpretation ABG results: PT/INR, D-dimer PT 52.7 Seconds (9.4-12.1) H* 01/17/17 08:02 - VTE Documentation of Mechanical Device: Intermittent pneumatic compression device Consult Discharge Plan - Plan Referrals: Tamiko Cortes MD [Primary Care Provider] - <Brian Flanagan T - Last Filed: 01/17/17 13:54> Date of Encounter: 01/17/17 - Constitutional Vitals: Temp Pulse Resp BP Pulse Ox 99.0 F 68 15 109/65 92 01/17/17 10:37 01/17/17 10:37 01/17/17 10:37 01/17/17 10:37 01/17/17 10:37 Internal Medicine: Result - Labs CBC & Chem 7: 01/17/17 08:02 01/17/17 08:02 Labs: Short CBC 01/17/17 Range/Units 08:02 WBC 17.2 H (4.3-11.1) K/mcL Hgb 12.9 (12.9-16.9) g/dL Hct 39.7 (37.5-50.1) % Plt Count 139 L (140-400) K/mcL Neutrophils # 15.5 H (1.6-8.9) K/mcL BMP 01/17/17 08:02 Sodium 139 Potassium 3.6 Chloride 109 Carbon Dioxide 23 BUN 7 L Creatinine 0.88 Glucose 108 H Calcium 8.2 L Liver Function 01/17/17 Range/Units 11:14 Total Bilirubin 1.5 H D (0.2-1.2) mg/dL Direct Bilirubin 0.6 H (0.0-0.5) mg/dL AST 20 (5-34) Units/L ALT 15 (0-55) Units/L Alkaline Phosphatase 70 (38-126) Units/L Albumin 2.7 L D (3.5-5.0) g/dL - ABG Interpretation ABG results: PT/INR, D-dimer PT 52.7 Seconds (9.4-12.1) H* 01/17/17 08:02 - Attending Attestation See my event note of same day
--- NOTE | 2017-01-17 14:13 | General Surgery Consult Note ---
Date of Encounter: 01/17/17 Time of Encounter: 13:15 History of Present Illness Consult date: 01/17/17 Reason for consult: other (acute pancreatitis) Requesting physician: Pennie Leigh History of present illness: 81-year-old male referred for further evaluation and treatment acute pancreatitis. The patient presented to [facility] ED, 01/15/2017, due to abrupt onset upper abdominal pain radiating through to the back associated with nausea and vomiting. Lab work on presentation was notable for leukocytosis 17.5 with neutrophilia 15.6%; lipase 11,915. CT of the abdomen and pelvis demonstrated marked inflammatory changes surrounding the pancreatic head and body with involvement of the second and third portions of the duodenum. There was no evidence of organized fluid collection or pancreatic abscess, however, visualization of the pancreas was limited by the lack of contrast. Calcific densities within the gallbladder consistent with cholelithiasis was described. Advanced lumbar spondylosis including retrolisthesis at L1-2, L2-3, L3-4, and L4-5 was also noted. Sonogram of the gallbladder demonstrated a nonmobile echogenic focus within the gallbladder without significant shadowing suggestive of a polyp measuring up to 1.4 cm. Personally reviewed the CT and ultrasound with [facility], with the findings most consistent with gallstones causing the pancreatitis. A tumifactive "sludge ball" is a possible explanation for the sonographic findings. 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5 mg by mouth on Monday; 5 mg by mouth the other 6 days of the week Social history: Patient is , lives with spouse; he admits to smoking cigars and or pipe for approx 10 years; he ceased all tobacco use ; Patient admits to 2 glasses of wine typically on Monday; he denies any illicit drug use Physical examination: Age-appropriate male resting comfortably in his hospital bed. The acute symptoms with which he presented 01/15/2017, are markedly diminished. The patient denies all pain at the present time, there is no further nausea or vomiting. Skin is warm without obvious jaundice. The patient is currently afebrile, maximum temperature 100.1 approximately 2000 hrs. last evening; pulse 68, respirations 15, blood pressure 109/65. SPO2 on room air 92-93% Lungs: Clear, no obvious abdominal pain with deep inspiration Cardiac: Rate slightly irregular, soft systolic murmur is present. Abdomen: Soft, nontender. No obvious hepatosplenomegaly or intra-abdominal masses; no rebound. Active bowel sounds. Extremities: No obvious clubbing, cyanosis, or edema. Impression: 81-year-old male admitted after presenting to [facility] ED with abrupt onset abdominal pain, nausea and vomiting 2016 Patient with signs and symptoms acute pancreatitis most likely due to gallstones. The patient is feeling better with resolution of the acute abdominal pain, N&V but amylase and lipase remain elevated, 166/97 respectively. The patient remains anticoagulated, PT/INR currently 52.7/4.7. The patient also has plans to travel to [place] to attend a granddaughter who has been gravely ill. The patient has been made aware of the presumptive diagnosis - gallstone pancreatitis. Recommendations include: allowing the acute inflammation of the pancreas to subside followed by cholecystectomy during the same hospitalization. The patient is a reasonable candidate for laparoscopic cholecystectomy but understands that an open cholecystectomy may become necessary. The patient's anticoagulation is also problematic and will need to be reversed prior to any surgical intervention. During the cholecystectomy an intraoperative cholangiogram to assess the hepatobiliary tree for additional stones (choledocholithiasis) is planned. The risks of surgery were discussed. The patient wishes to defer surgery until his return from [place]. The risk of recurrent pancreatitis was discussed in detail. The patient accepts the risk but his does not. If surgery is to be delayed, the anticoagulation need not be reversed until the surgical date is known. It is unknown if patient will require "bridge therapy" while the coumadin is reversed. If necessary, the patient will be admitted the day before surgery to administer bridge therapy followed by resumption of the bridge therapy after surgery until coumadin or Lovenox can be resumed. Lengthy discussion was completed with the patient and his . I will folllow with you and recheck the patient in the AM. RECOMMENDATIONS: continue to hold coumadin clear liquid diet, pending continued improvement amylase and lipase - stop diet if recurrent abdominal pain Past Med Surg Social Fam HX - Past Medical History Medical history: atrial fibrillation, CHF, coronary artery disease, hyperlipidemia, hypertension, osteoporosis Psychiatric history: no psych history - Social History Smoking Status: Never smoker Smokeless Tobacco Status: No Alcohol use: none Drug use: none Medications and Allergies Atorvastatin Calcium [Lipitor] 80 mg PO DAILY 01/15/17 [History] Finasteride [Proscar] 5 mg PO DAILY 01/15/17 [History] Losartan [Cozaar] 25 mg PO DAILY 01/15/17 [History] Melatonin/Pyridoxine HCl (B6) [Melatonin 3 mg Tablet] 1 each PO HS PRN 01/15/17 [History] Metoprolol Tartrate [Lopressor] 25 mg PO BID 01/15/17 [History] Spironolactone [Aldactone] 25 mg PO DAILY 01/15/17 [History] Tamsulosin [Flomax] 0.4 mg PO DAILY 01/15/17 [History] Torsemide [Demadex] 20 mg PO DAILY 01/15/17 [History] Warfarin Sodium 2.5 mg PO TU 01/15/17 [History] Warfarin Sodium 5 mg PO SUMOWETHFRSA 01/15/17 [History] 3 Allergy/AdvReac Type Severity Reaction Status Date / Time Sulfa (Sulfonamide Allergy Rash Verified 01/15/17 00:56 Antibiotics) Review of Systems All systems PM: A 10-system review of systems was performed and is negative for pertinent findings except as documented above in the HPI. General Surgery Exam Initial Vital Signs Temp Pulse Resp BP Pulse Ox 98.0 F 69 18 128/72 96 01/15/17 00:56 01/15/17 00:56 01/15/17 00:56 01/15/17 00:56 01/15/17 00:56 Exam Initial Vital Signs Temp Pulse Resp BP Pulse Ox 98.0 F 69 18 128/72 96 01/15/17 00:56 01/15/17 00:56 01/15/17 00:56 01/15/17 00:56 01/15/17 00:56 Results - Labs 01/17/17 08:02 01/17/17 08:02 Abnormal lab results WBC 17.2 K/mcL (4.3-11.1) H 01/17/17 08:02 RBC 4.07 M/mcL (4.19-5.50) L 01/17/17 08:02 RDW 14.6 % (11.5-14.5) H 01/17/17 08:02 Plt Count 139 K/mcL (140-400) L 01/17/17 08:02 Neutrophils # 15.5 K/mcL (1.6-8.9) H 01/17/17 08:02 Lymphocytes # 0.5 K/mcL (0.6-4.6) L 01/17/17 08:02 PT 52.7 Seconds (9.4-12.1) H* 01/17/17 08:02 INR 4.7 H* 01/17/17 08:02 APTT 39.1 Seconds (26.0-36.0) H 01/15/17 01:22 BUN 7 mg/dL (8-26) L 01/17/17 08:02 Glucose 108 mg/dL (70-99) H 01/17/17 08:02 POC Glucose 134 (58-89) H 01/16/17 06:02 Calcium 8.2 mg/dL (8.6-10.8) L 01/17/17 08:02 Total Bilirubin 1.5 mg/dL (0.2-1.2) H D 01/17/17 11:14 Direct Bilirubin 0.6 mg/dL (0.0-0.5) H 01/17/17 11:14 Serum Total Protein 5.7 g/dL (6.0-8.3) L 01/17/17 11:14 Albumin 2.7 g/dL (3.5-5.0) L D 01/17/17 11:14 Albumin/Globulin Ratio 0.9 (1.1-2.2) L 01/17/17 11:14 HDL Cholesterol 67 mg/dL (40-59) H 01/15/17 08:45 Amylase 166 Units/L (25-125) H 01/17/17 11:14 Lipase 97 Units/L (8-78) H 01/17/17 11:14 Diabetes panel 01/17/17 01/17/17 Range/Units 08:02 11:14 Sodium 139 (136-145) mEq/L Potassium 3.6 (3.5-4.5) mEq/L Chloride 109 (98-109) mEq/L Carbon Dioxide 23 (19-29) mEq/L BUN 7 L (8-26) mg/dL Creatinine 0.88 (0.72-1.25) mg/dL Glucose 108 H (70-99) mg/dL Calcium 8.2 L (8.6-10.8) mg/dL AST 20 (5-34) Units/L ALT 15 (0-55) Units/L Alkaline Phosphatase 70 (38-126) Units/L Albumin 2.7 L D (3.5-5.0) g/dL Calcium panel 01/17/17 01/17/17 Range/Units 08:02 11:14 Calcium 8.2 L (8.6-10.8) mg/dL Albumin 2.7 L D (3.5-5.0) g/dL Pituitary panel 01/17/17 Range/Units 08:02 Sodium 139 (136-145) mEq/L Potassium 3.6 (3.5-4.5) mEq/L Chloride 109 (98-109) mEq/L Carbon Dioxide 23 (19-29) mEq/L BUN 7 L (8-26) mg/dL Creatinine 0.88 (0.72-1.25) mg/dL Glucose 108 H (70-99) mg/dL Calcium 8.2 L (8.6-10.8) mg/dL Adrenal panel 01/17/17 01/17/17 Range/Units 08:02 11:14 Sodium 139 (136-145) mEq/L Potassium 3.6 (3.5-4.5) mEq/L Chloride 109 (98-109) mEq/L Carbon Dioxide 23 (19-29) mEq/L BUN 7 L (8-26) mg/dL Creatinine 0.88 (0.72-1.25) mg/dL Glucose 108 H (70-99) mg/dL Calcium 8.2 L (8.6-10.8) mg/dL Total Bilirubin 1.5 H D (0.2-1.2) mg/dL AST 20 (5-34) Units/L ALT 15 (0-55) Units/L Alkaline Phosphatase 70 (38-126) Units/L Albumin 2.7 L D (3.5-5.0) g/dL All other labs normal. Consult Discharge Plan - Plan Referrals: Tamiko Cortes MD [Primary Care Provider] -
[2017-01-17] MEDS: Piperacillin/Tazobactam 3.375 GM in D5% in Water (Mini-Bag+) 100 ML IVPB SCH ×2 (15:49→23:17)
[2017-01-17] MEDS: Ondansetron 4 MG/2 ML VIAL IVP PRN (20:07)
[2017-01-17] MEDS: Melatonin 3 MG TABLET PO PRN (20:47)
[2017-01-18] MEDS: D5% in 0.9% NACL 1,000 ML IVC SCH (05:19)
[2017-01-18 05:50] LABS: Basophils # 0.1 K/mcL (0.0-0.2); Basophils % 0.6 %; Eosinophils # 0.1 K/mcL (0.0-0.6); Eosinophils % 0.8 %; Hematocrit 34.6 % (37.5-50.1); Hemoglobin 11.4 g/dL (12.9-16.9); Immature Granulocytes % 0.4 % (0-4); Lymphocytes # 0.4 K/mcL (0.6-4.6); Lymphocytes % 3.1 %; Mean Corpuscular HGB Conc 32.9 g/dL (31.6-35.5); Mean Corpuscular Hemoglobin 31.9 pg (28.0-33.3); Mean Corpuscular Volume 96.9 fL (83.0-100.0); Mean Platelet Volume 10.6 fL (9.4-12.4); Monocytes % 7.7 %; Neutrophils # 11.5 K/mcL (1.6-8.9); Platelet Count 122 K/mcL (140-400); Red Blood Count 3.57 M/mcL (4.19-5.50); Red Cell Distribution Width 14.4 % (11.5-14.5); Segmented Neutrophils % 87.4 %
[2017-01-18 05:55] LABS: Prothrombin Time 44.7 Seconds (9.4-12.1)
[2017-01-18 06:13] LABS: Amylase 85 Units/L (25-125); BUN/Creatinine Ratio 9 (6-26); Blood Urea Nitrogen 8 mg/dL (8-26); Calcium 7.8 mg/dL (8.6-10.8); Carbon Dioxide 24 mEq/L (19-29); Chloride 109 mEq/L (98-109); Glucose 123 mg/dL (70-99); Lipase 59 Units/L (8-78); Osmolality,Calculated 286 (280-300); Potassium 3.2 mEq/L (3.5-4.5); Sodium 138 mEq/L (136-145); eGFR For African Americans > 60 (> 60); eGFR For Non-African Americans > 60 (> 60)
[2017-01-18 07:52] LABS: Alanine Aminotransferase 15 Units/L (0-55); Albumin 2.5 g/dL (3.5-5.0); Albumin/Globulin Ratio 0.9 (1.1-2.2); Alkaline Phosphatase 68 Units/L (38-126); Aspartate Amino Transferase 20 Units/L (5-34); Bilirubin,Direct 0.6 mg/dL (0.0-0.5); Bilirubin,Indirect 0.9 mg/dL (0.0-1.2); Bilirubin,Total 1.5 mg/dL (0.2-1.2); Globulin 2.8 g/dL (2.4-3.5); Total Protein 5.3 g/dL (6.0-8.3)
[2017-01-18 08:08] LABS: Bilirubin,Urine Negative (Negative); Blood,Urine Negative (Negative); Clarity,Urine Clear (Clear); Color,Urine Yellow (Yellow); Glucose,Urine (UA) Normal (Normal); Ketones,Urine Negative (Negative); Leukocyte Esterase,Urine Negative (Negative); Nitrite,Urine Negative (Negative); Protein,Urine 100 mg/dL (Neg-Trace); Specific Gravity,Urine 1.019 (1.010-1.025); Urobilinogen,Urine Normal (Normal)
[2017-01-18 08:11] LABS: Bacteria,Urine None Seen per hpf (None-Few); Hyaline Casts,Urine None Seen per lpf (None-Few); RBC,Urine 0-3 per hpf (0-3); Squamous Epithelial Cell,Urine Many per lpf (None-Few); WBC,Urine 0-3 per hpf (0-3)
[2017-01-18] MEDS: Torsemide 20 MG TABLET PO SCH (08:18)
[2017-01-18] MEDS: Finasteride 5 MG TABLET PO SCH (08:18)
[2017-01-18] MEDS: Spironolactone 25 MG TABLET PO SCH (08:18)
[2017-01-18] MEDS: Pantoprazole 40 MG VIAL IVP SCH (08:18)
[2017-01-18] MEDS: Piperacillin/Tazobactam 3.375 GM in D5% in Water (Mini-Bag+) 100 ML IVPB SCH (08:18)
[2017-01-18] MEDS: Fluticasone Propionate Nasal 50 MCG/SPRAY BOTTLE NS SCH (08:19)
--- NOTE | 2017-01-18 09:30 | Internal Med Progress Note ---
<Brian Flanagan T - Last Filed: 01/18/17 15:54> Date of Encounter: 01/18/17 - Constitutional Vitals: Temp Pulse Resp BP Pulse Ox 98.6 F 71 16 114/70 92 01/18/17 11:57 01/18/17 11:57 01/18/17 11:57 01/18/17 11:57 01/18/17 11:57 Internal Medicine: Result - Labs CBC & Chem 7: 01/18/17 05:09 01/18/17 05:09 Labs: Short CBC 01/18/17 Range/Units 05:09 WBC 13.1 H (4.3-11.1) K/mcL Hgb 11.4 L D (12.9-16.9) g/dL Hct 34.6 L (37.5-50.1) % Plt Count 122 L (140-400) K/mcL Neutrophils # 11.5 H (1.6-8.9) K/mcL BMP 01/18/17 05:09 Sodium 138 Potassium 3.2 L Chloride 109 Carbon Dioxide 24 BUN 8 Creatinine 0.85 Glucose 123 H Calcium 7.8 L Liver Function 01/18/17 Range/Units 05:09 Total Bilirubin 1.5 H (0.2-1.2) mg/dL Direct Bilirubin 0.6 H (0.0-0.5) mg/dL AST 20 (5-34) Units/L ALT 15 (0-55) Units/L Alkaline Phosphatase 68 (38-126) Units/L Albumin 2.5 L (3.5-5.0) g/dL Urine 01/18/17 Range/Units 08:00 Urine Color Yellow (Yellow) Urine Clarity Clear (Clear) Urine pH 6.0 (5.0-8.0) pH Units Ur Specific Merkel 1.019 (1.010-1.025) Urine Protein 100 H (Neg-Trace) mg/dL Urine Glucose (UA) Normal (Normal) mg/dL - ABG Interpretation ABG results: PT/INR, D-dimer PT 44.7 Seconds (9.4-12.1) H* 01/18/17 05:09 - Impressions Impressions Abdomen Ultrasound 01/16/17 08:00 IMPRESSION: 1. Echogenic focus in the gallbladder measuring up to 1.4 cm, favored to represent a gallbladder polyp. Given size, surgical consultation is recommended. Questionable additional 0.2 cm gallbladder polyp. 2. While there is no evidence of choledocholithiasis, the common bile duct was suboptimally evaluated on this study due to overlying bowel gas. If there is persistent clinical concern, MRCP can be performed for further evaluation. 3. Nonspecific gallbladder wall thickening. 4. Findings suggestive of hepatic steatosis. 5. Increased right renal echogenicity, suggestive of chronic medical renal disease. D/ / 01/16/2017 08:57:[address] MD / reg Interpreting Provider: Noel Lane MD Consult Discharge Plan - Plan Referrals: Tamiko Cortes MD [Primary Care Provider] - - Attending Attestation I independently saw and examined this patient on 01/18/2017, I have reviewed his chart as well. Diagnoses and management plan was discussed with the patient, and the resident physician. 81-year-old male with past medical history of atrial fibrillation on Coumadin, he is admitted and being managed for acute pancreatitis. Workup revealed a gallbladder polyp, gallbladder wall thickening without evidence of choledocholithiasis. General surgery and gastroenterology have been following. On evaluation at the bedside this morning, the patient denies any abdominal pain , he denies new complaints. He did not have any more episodes of fever and his leukocytosis is improving. He is tolerating orally. On physical examination, VSS.His abdomen is soft and nontender, Zavala sign is negative. He has no pedal edema. His chest is clear to auscultation bilaterally. Labs and Imaging reviewed: Leukocytosis. WBC 13.5. INR 4.0 Lipase/amylase WNL, AST/ALT WNL. Tbil stable at 1.5 Assessment and plan #1 acute pancreatitis: Resolved. Etiology of pancreatitis may include choledocholithiasis/gallbladder polyp. Advance diet. #2 supratherapeutic INR: Continue to hold Coumadin. Patient is currently not bleeding. He has no transaminitis. Continue to monitor INR. #3 atrial fibrillation: Heart rate is controlled. Continue current management. #4 hyperbilirubinemia. Possibly secondary to gallbladder polyp. Surgery is on board. Patient declined inpatient surgery, will follow up with Dr. Guillaume as out-patient #5 gallbladder polyp: As above #6 Leukocytosis: Improving, follow blood culture. Continue Cipro/flagyl po. D/C Zosyn. Rest of details as in the resident physicians documentation. <Pennie Leigh - Last Filed: 01/18/17 18:11> Date of Encounter: 01/18/17 Time of Encounter: 09:28 - Assessment and plan (1) Acute pancreatitis Current Visit: Yes Status: Acute Assessment and plan: Patient reports that abdominal discomfort has resolved Lipase levels have [place] 17779 to 59 WBC count has improved his 13.1 CT abdomen showed acute pancreatitis, no abscess or pseudo cyst. Cholelithiasis. Ultrasound showed large polyp 1.4cm and 0.2cm polyp in gallbladder -Patient adamant about leaving hospital tomorrow due to a trip planned to go to [place] to go see his gravely ill granddaughter. Surgery is aware of this and has discussed the risks of deferring the cholecystectomy, and they have scheduled an outpatient appointment with Dr. 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 it is time and stated that this is more surgical problem -Cardiac diet -stop IV fluids -IV antibiotics switch to oral antibiotics of Cipro and Flagyl -Surgery following -upon discharge the patient is to restart Coumadin on Monday and then to follow up in the Coumadin clinic on Monday -will continue to monitor Qualifiers: Pancreatitis type: unspecified pancreatitis type Acute pancreatitis complication: unspecified Qualified Code(s): K85.90 - Acute pancreatitis without necrosis or infection, unspecified (2) Supratherapeutic INR Current Visit: Yes Status: Acute Assessment and plan: Patients INR is supratherapeutic, 4.0 no active bleeding at this time -will continue to hold Coumadin -Will continue to monitor INR (3) Atrial fibrillation Current Visit: Yes Status: Acute Assessment and plan: Rate controlled. continue home meds, metoprolol Coumadin currently being held due to supratherapeutic levels Qualifiers: Atrial fibrillation type: chronic Qualified Code(s): I48.2 - Chronic atrial fibrillation (4) Hyperbilirubinemia Current Visit: Yes Status: Acute Assessment and plan: Hyperbilirubinemia, total bilirubin 1.5, direct bilirubin 0.6 (unchanged from yesterday) possibly due to the gallbladder polyp Ultrasound did not show evidence of Choledocholithiasis - surgery is following -will continue to monitor bilirubin level (5) Gallbladder polyp Current Visit: Yes Status: Acute Assessment and plan: Ultrasound showed large polyp 1.4cm and 0.2cm polyp in gallbladder and surgical consult recommended see plan above (6) Leukocytosis Current Visit: Yes Status: Acute Assessment and plan: WBC has improved and is now 13.1 Etiology is currently unknown Patient reports resolved abdominal pain. The abdomen with soft and non-guarding on exam. -Patient is now on oral and biotics only Qualifiers: Leukocytosis type: bandemia Qualified Code(s): D72.825 - Bandemia - Subjective Interval history: Patient is sitting up in bed comfortably. He stated that his abdominal pain is resolved and he is adamant about being discharged tomorrow. He denies fever, chills, nausea, vomiting. He has no complaints. He reports that he has an appointment with Dr. Guillaume next outpatient. - Constitutional Vitals: Temp Pulse Resp BP Pulse Ox 98.7 F 61 16 127/70 93 01/18/17 06:49 01/18/17 06:49 01/18/17 06:49 01/18/17 06:49 01/18/17 06:49 Exam: Gen.: Vitals noted. No acute distress. AAOx3 HEENT: oropharynx clear, Normocephalic, atraumatic Cardiac: RRR, audible click, +S1/S2 Pulmonary: CTA bilaterally, no wheezes, rales or rhonchi, equal chest expansion Abdomen: soft, nontender, Bowel sounds noted, no guarding MSK: ROM intact, no joint swelling noted Extremities: no BLE edema, nontender calf, no cyanosis or clubbing Neuro: A&Ox3, moves all extremities, no focal deficits Psych: Appropriate mood and behavior Internal Medicine: Result - Labs CBC & Chem 7: 01/18/17 05:09 01/18/17 05:09 Labs: Short CBC 01/18/17 Range/Units 05:09 WBC 13.1 H (4.3-11.1) K/mcL Hgb 11.4 L D (12.9-16.9) g/dL Hct 34.6 L (37.5-50.1) % Plt Count 122 L (140-400) K/mcL Neutrophils # 11.5 H (1.6-8.9) K/mcL BMP 01/18/17 05:09 Sodium 138 Potassium 3.2 L Chloride 109 Carbon Dioxide 24 BUN 8 Creatinine 0.85 Glucose 123 H Calcium 7.8 L Liver Function 01/17/17 01/18/17 Range/Units 11:14 05:09 Total Bilirubin 1.5 H D 1.5 H (0.2-1.2) mg/dL Direct Bilirubin 0.6 H 0.6 H (0.0-0.5) mg/dL AST 20 20 (5-34) Units/L ALT 15 15 (0-55) Units/L Alkaline Phosphatase 70 68 (38-126) Units/L Albumin 2.7 L D 2.5 L (3.5-5.0) g/dL Urine 01/18/17 Range/Units 08:00 Urine Color Yellow (Yellow) Urine Clarity Clear (Clear) Urine pH 6.0 (5.0-8.0) pH Units Ur Specific Merkel 1.019 (1.010-1.025) Urine Protein 100 H (Neg-Trace) mg/dL Urine Glucose (UA) Normal (Normal) mg/dL - ABG Interpretation ABG results: PT/INR, D-dimer PT 44.7 Seconds (9.4-12.1) H* 01/18/17 05:09 - VTE Documentation of Mechanical Device: Intermittent pneumatic compression device
[2017-01-18] MEDS ORDERED: metroNIDAZOLE 500 MG TABLET PO SCH (09:45)
[2017-01-18] MEDS: metroNIDAZOLE 500 MG TABLET PO SCH (21:54)
[2017-01-18] MEDS: Melatonin 3 MG TABLET PO PRN (21:55)
[2017-01-19 04:49] LABS: Basophils # 0.1 K/mcL (0.0-0.2); Basophils % 0.7 %; Eosinophils # 0.2 K/mcL (0.0-0.6); Eosinophils % 1.6 %; Hematocrit 34.2 % (37.5-50.1); Hemoglobin 11.7 g/dL (12.9-16.9); Immature Granulocytes % 0.6 % (0-4); Lymphocytes # 0.5 K/mcL (0.6-4.6); Lymphocytes % 3.9 %; Mean Corpuscular HGB Conc 34.2 g/dL (31.6-35.5); Mean Corpuscular Hemoglobin 32.4 pg (28.0-33.3); Mean Corpuscular Volume 94.7 fL (83.0-100.0); Monocytes % 8.2 %; Neutrophils # 10.2 K/mcL (1.6-8.9); Platelet Count 139 K/mcL (140-400); Red Blood Count 3.61 M/mcL (4.19-5.50)
[2017-01-19 05:03] VITALS: BP 113/70
[2017-01-19 05:06] LABS: BUN/Creatinine Ratio 12 (6-26); Blood Urea Nitrogen 10 mg/dL (8-26); Calcium 7.8 mg/dL (8.6-10.8); Carbon Dioxide 24 mEq/L (19-29); Chloride 107 mEq/L (98-109); Glucose 96 mg/dL (70-99); Osmolality,Calculated 285 (280-300); Sodium 138 mEq/L (136-145); eGFR For African Americans > 60 (> 60); eGFR For Non-African Americans > 60 (> 60)
[2017-01-19] MEDS: Spironolactone 25 MG TABLET PO SCH (08:02)
[2017-01-19] MEDS: Torsemide 20 MG TABLET PO SCH (08:03)
[2017-01-19] MEDS: Fluticasone Propionate Nasal 50 MCG/SPRAY BOTTLE NS SCH (08:03)
[2017-01-19] MEDS: Finasteride 5 MG TABLET PO SCH (08:03)
[2017-01-19] MEDS: metroNIDAZOLE 500 MG TABLET PO SCH (08:03)
--- NOTE | 2017-01-19 08:40 | Discharge Summary ---
<Pennie Leigh - Last Filed: 01/19/17 08:45> Date of Encounter: 01/19/17 Time of Encounter: 08:15 - Discharge Diagnosis (1) Acute pancreatitis Priority: Primary Status: Acute Qualifiers: Pancreatitis type: unspecified pancreatitis type Acute pancreatitis complication: unspecified Qualified Code(s): K85.90 - Acute pancreatitis without necrosis or infection, unspecified (2) Supratherapeutic INR Priority: Secondary Status: Acute (3) Atrial fibrillation Priority: Secondary Status: Acute Qualifiers: Atrial fibrillation type: chronic Qualified Code(s): I48.2 - Chronic atrial fibrillation (4) Hyperbilirubinemia Priority: Secondary Status: Acute (5) Gallbladder polyp Priority: Secondary Status: Acute (6) Leukocytosis Priority: Secondary Status: Acute Qualifiers: Leukocytosis type: bandemia Qualified Code(s): D72.825 - Bandemia - Discharge Medications Prescriptions: Ciprofloxacin [Cipro] 500 mg PO BID 7 Days #14 tablet metroNIDAZOLE [Flagyl] 500 mg PO TID 7 Days #21 tablet Home Medications: Atorvastatin Calcium [Lipitor] 80 mg PO DAILY 01/15/17 [History] Finasteride [Proscar] 5 mg PO DAILY 01/15/17 [History] Losartan [Cozaar] 25 mg PO DAILY 01/15/17 [History] Melatonin/Pyridoxine HCl (B6) [Melatonin 3 mg Tablet] 1 each PO HS PRN 01/15/17 [History] Metoprolol Tartrate [Lopressor] 25 mg PO BID 01/15/17 [History] Spironolactone [Aldactone] 25 mg PO DAILY 01/15/17 [History] Tamsulosin [Flomax] 0.4 mg PO DAILY 01/15/17 [History] Torsemide [Demadex] 20 mg PO DAILY 01/15/17 [History] Warfarin Sodium 2.5 mg PO TU 01/15/17 [History] Warfarin Sodium 5 mg PO SUMOWETHFRSA 01/15/17 [History] Ciprofloxacin [Cipro] 500 mg PO BID 7 Days #14 tablet 01/19/17 [Rx] metroNIDAZOLE [Flagyl] 500 mg PO TID 7 Days #21 tablet 01/19/17 [Rx] Allergies/Adverse Reactions: 3 Allergy/AdvReac Type Severity Reaction Status Date / Time Sulfa (Sulfonamide Allergy Rash Verified 01/15/17 00:56 Antibiotics) Date of admission: 01/15/17 03:25 Primary care physician: Tamiko Cortes, Consults: 01/17/17 11:18 Consult to Surgery [CONS] Routine Consulting Provider: Surgery Shari Surg - [place] Reason for Consult: acute pancreatitis with polyps found on u/s Call Completed: Yes Discharging clinician: Brian Flanagan - Patient Status Disposition: Home, Self-Care Condition: Good Functional capacity at discharge: independent ambulation Overall status at discharge: patient is progressing back to baseline - Discharge Instructions Follow Up With: Mode Guillaume MD [Non-Partnered Physician] - 01/26/17 2:10 pm Additional Instructions: Finish your course of antibiotics your diet should consist of low-fat restart your Coumadin tomorrow, go to the Coumadin clinic on Monday follow-up with your primary care physician follow-up with Dr. Guillaume next at your appointment with him outpatient to discuss cholecystectomy. Return to the hospital should you develop new abdominal pain, fever, chills, chest pain, shortness of breath. - Diet and Activity Activity: resume usual activities as tolerated Diet: low fat, low cholesterol Hospital course: Mr. 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 3 hours prior to arrival to emergency room patients started experiencing severe 8 out of 10 in severity upper mid abdominal pain radiating to his back associated with nausea recurrent episodes of nonbloody emesis. he had approximately 7 episodes of vomiting prior to arrival to ER. Noncontrast CT scan of abdomen and pelvis shows acute pancreatitis. Patient denies any prior similar episodes. Patient denies any fever or chills. Denies any known prior history of gallbladder disease. Drinks alcohol occasionally as drink with yesterday 2 to 3 drinks on weekends. The patient was admitted to the hospital, GI and surgery were consulted. GI did not believe that they needed to do ERCP and this was a more surgical case. Ultrasound showed large polyp 1.4cm and 0.2cm polyp in gallbladder. The patient was started on IV antibiotics, IV fluids, pain medications, NPO. He continued to improve the course of hospital stay. He was found to have a super therapeutic INR says Coumadin was held. His white blood cell count continue to improve his abdominal pain patient had resolved. Hysterical clear liquid diet and slowly progressed to solid food. He was adamant about discharge and was complied to stay until due to a trip planned to go see his gravely ill granddaughter in [place]. Surgery had seen the patient and had reviewed with him the risks of not getting a close cystectomy while in the hospital at this present time. The patient accepted the risks and was alert and oriented times 3 with full capacity to make a well- informed decision to leave. His was along side him. The patient was informed to restart his Coumadin tomorrow into finishes course of antibiotics, a low-fat diet. Is to go to the Coumadin clinic on Monday, follow-up with Dr. Guillaume outpatient on next to discuss cholecystectomy. He stated clearly understanding of the treatment plan, all questions were answered. Is instructed to return to the hospital should he developed fever, chills, abdominal pain, nausea, vomiting. He is also follow up with his PCP. - Time Spent with Patient Total time spent providing and/or coordinating discharge services: Greater than 30 minutes - Constitutional Vitals: Temp Pulse Resp BP Pulse Ox 99 F 72 17 113/70 91 01/19/17 05:01 01/19/17 05:01 01/19/17 05:01 01/19/17 05:01 01/19/17 05:01 Exam: Gen.: Vitals noted. No acute distress. AAOx3 HEENT: oropharynx clear, Normocephalic, atraumatic Neck: Supple. No adenopathy. Cardiac: RRR, audible click, +S1/S2, no rub Pulmonary: CTA bilaterally, no wheezes, rales or rhonchi, equal chest expansion Abdomen: soft, nontender, Bowel sounds noted, no guarding Extremities: no BLE edema, nontender calf, no cyanosis or clubbing Neuro: A&Ox3, moves all extremities Psych: Appropriate mood and behavior - VTE Documentation of Mechanical Device: Intermittent pneumatic compression device <Brian Flanagan - Last Filed: 01/19/17 13:42> Date of Encounter: 01/19/17 Date of admission: 01/15/17 03:25 Primary care physician: Tamiko Cortes, Consults: 01/17/17 11:18 Consult to Surgery [CONS] Routine Consulting Provider: Surgery Shari Gay - [place] Reason for Consult: acute pancreatitis with polyps found on u/s Call Completed: Yes Hospital course: Mr. Taylor is a 81 year old male - Time Spent with Patient Total time spent providing and/or coordinating discharge services: - Constitutional Vitals: Temp Pulse Resp BP Pulse Ox 99 F 72 17 113/70 91 01/19/17 05:01 01/19/17 05:01 01/19/17 05:01 01/19/17 05:01 01/19/17 05:01 - Attending Attestation I independently saw and examined this patient on 01/19/2017, I have reviewed his chart as well. Diagnoses and management plan was discussed with the patient, and the resident physician. 81-year-old male with past medical history of atrial fibrillation on Coumadin, self-stated chronic CHF (unspecified), He was admitted and managed for acute pancreatitis possibly secondary to gall stones. Workup revealed a gallbladder polyp, gallbladder wall thickening without evidence of choledocholithiasis. General surgery and gastroenterology saw patient through the admission and recommendations were followed. Patient also had supratherapeutic INR which has normalized this morning Hie leukocytosis has improved and he has had no more abdominal pain, he is tolerating orally and having BM that are well formed. . On evaluation at the bedside this morning, the patient denies any abdominal pain , he denies new complaints. He did not have any more episodes of fever and his leukocytosis is improving. He is tolerating orally. On physical examination, VSS.His abdomen is soft and nontender, Zavala sign is negative. He has no pedal edema. His chest is clear to auscultation bilaterally. Labs and Imaging reviewed: Leukocytosis . WBC 12, down from 13.5 01/18. Hypokalemia, K 3.0. INR 2.2 Assessment and plan #1 acute pancreatitis: Resolved. Etiology of pancreatitis may include choledocholithiasis/gallbladder polyp. Stable to be discharged on current antibiotics #2 supratherapeutic INR: Resolved. Resume home dose of Couamdin, follow up in INR Clinic Wednesday 01/24 #3 atrial fibrillation: Heart rate is controlled. Continue current management. #4 hyperbilirubinemia. Possibly secondary to gallbladder polyp. Surgery is on board. Patient declined inpatient surgery, will follow up with Dr. Guillaume as out-patient #5 gallbladder polyp: As above #6 Chronic CHF: Euvolemic throughout admission. No indication for any intervention, continue home meds Rest of details as in the resident physicians documentation.
[2017-01-19 08:41] LABS: INR 2.2; Prothrombin Time 23.8 Seconds (9.4-12.1)
[2017-01-19] MEDS ORDERED: Potassium Chloride Elixir 20 MEQ/15 ML UDC PO ONE (08:50)
[2017-01-19 08:57] LABS: Magnesium 1.4 mg/dL (1.6-2.6)
[2017-01-19] MEDS ORDERED: Magnesium Sulfate 2 GM in D5% in Water 100 ML IVPB ONE (10:13)
[2017-01-19] MEDS ORDERED: Magnesium Oxide 400 MG TABLET PO STA (10:29)
[2017-01-19] MEDS: Magnesium Oxide 400 MG TABLET PO STA ×2 (10:55→10:57)
[2017-01-19] MEDS ORDERED: Magnesium Oxide 400 MG TABLET PO ONE (12:00)
== END 2017-01-19 11:40 | disposition home or self-care (01) | DRG 440 ==
LOC: EMEROO 00:53 → 3ANU 00:53 → SUATTDRO 03:25 → 3ANU 03:32
PROVIDERS: ADMIT Hospitalist; ATTEND Internal Medicine

== ENCOUNTER 2018-02-05 09:17 | Inpatient (IN) ==
--- NOTE | 2018-02-05 09:46 | Emergency Department Note ---
Disposition Clinical Impression: Congestive heart failure Qualifiers: Heart failure type: diastolic Heart failure chronicity: acute on chronic Qualified Code(s): I50.33 - Acute on chronic diastolic (congestive) heart failure Disposition: Admitted As Inpatient Condition: Good Referrals: Tamiko Cortes MD [Primary Care Provider] - Forms: ED Satisfaction Letter Time of Disposition: 11:53 General Adult HPI - General Chief complaint: ED Shortness of Breath/Dyspnea Stated complaint: "cough,jong,swelling,n/v" Time Seen by Provider: 02/05/18 09:25 Source: patient Mode of arrival: ambulatory Limitations: no limitations - History of Present Illness HPI Narrative: This is an 83-year-old male with a history of 2 heart valve replacements in 2010, seen by cardiology at [facility], who comes to emergency department reporting worsening shortness of breath with quite severe dyspnea on exertion over the course of the last week. He states he feels like he is gradually worsened since he saw his barrel leveler in September 2017. He reports gaining more than 10 pounds, and greatly worsened pedal edema as well. Pain Scale: 0 - Related Data Home Medications Medication Instructions Recorded Confirmed Atorvastatin Calcium [Lipitor] 80 mg PO HS 01/15/17 02/01/17 Finasteride [Proscar] 5 mg PO DAILY 01/15/17 02/01/17 Losartan [Cozaar] 25 mg PO DAILY 01/15/17 02/01/17 Melatonin/Pyridoxine HCl (B6) 1 each PO HS PRN 01/15/17 02/01/17 [Melatonin 3 mg Tablet] Metoprolol Tartrate [Lopressor] 25 mg PO BID 01/15/17 02/01/17 Spironolactone [Aldactone] 25 mg PO DAILY 01/15/17 02/01/17 Tamsulosin [Flomax] 0.4 mg PO DAILY 01/15/17 02/01/17 Torsemide [Demadex] 20 mg PO DAILY 01/15/17 02/01/17 Warfarin Sodium 2.5 mg PO TH 01/15/17 02/05/18 Warfarin Sodium 5 mg PO SUMOTUWEFRSA 01/15/17 02/05/18 Folic Acid/Multivit-Min/Lutein 1 tab PO DAILY 02/01/17 02/01/17 [Cvs Spectravite Adult Tab Chew] Glucosamine/Chondroitin Sulf A 1 tab PO BID 02/01/17 02/01/17 [Cvs Glucosamine-Chondroit Chew] Previous Rx's Medication Instructions Recorded Acetaminophen [Tylenol] 650 mg PO Q6H PRN tablet 02/01/17 OxyCODONE/APAP 5/325 [Percocet 1 each PO Q6H PRN #10 tablet 02/01/17 5/325 MG] Allergies Allergy/AdvReac Type Severity Reaction Status Date / Time Sulfa (Sulfonamide Allergy Rash Verified 02/01/17 07:52 Antibiotics) All systems ED: reviewed and negative except as stated. Cardiovascular: Reports: dyspnea on exertion, edema Respiratory: Reports: dyspnea Past Medical History - Past Medical History Medical history: Reports: atrial fibrillation, CHF, coronary artery disease, hyperlipidemia, hypertension, osteoporosis Surgical history: Reports: pacemaker/AICD Psychiatric history: Reports: no psych history - Social History Smoking Status: Former smoker Smokeless Tobacco Status: No Alcohol use: Reports: none Drug use: Reports: none Physical Exam - General Limitations: no limitations General appearance: alert, in no apparent distress - Head Head exam: atraumatic, normocephalic, normal inspection - Eye Eye exam: Present: normal appearance, PERRL, EOMI - Chest Chest inspection: Present: normal inspection, symmetric chest wall rise - Respiratory Respiratory exam: Present: other (There are crackles heard in all lung villareal). Absent: respiratory distress, wheezes - Cardiovascular Cardiovascular exam: Present: regular rate, normal rhythm, normal heart sounds - Abdominal Exam Abdominal exam: Present: soft, Non-Tender. Absent: tenderness, distention, guarding, rebound, rigidity - Extremities Exam Extremities exam: Present: normal inspection, pedal edema (There is 3+ to 4+ pedal edema bilaterally to the proximal calves) - Neurological Exam Neurological exam: Present: alert, oriented X3 - Psychiatric Psychiatric exam: Present: normal affect, normal mood - Skin Skin exam: Present: warm, dry, intact, normal color Course Course Narrative: This is an 83-year-old female with concern for CHF exacerbation. Bedside lung ultrasound showed no B-lines. Vital Signs Temperature 97.2 F L 02/05/18 09:21 Pulse Rate 96 02/05/18 09:21 Respiratory Rate 16 02/05/18 09:21 Blood Pressure 98/64 02/05/18 09:21 O2 Sat by Pulse Oximetry 96 02/05/18 09:21 Temperature 97.2 F L 02/05/18 09:35 Pulse Rate 96 02/05/18 09:35 Respiratory Rate 16 02/05/18 09:35 Blood Pressure 98/64 02/05/18 09:35 O2 Sat by Pulse Oximetry 99 02/05/18 09:40 Oxygen Delivery Oxygen Delivery Room Air Medical Decision Making - MDM Narrative Medical decision making narrative: This is an 83-year-old male who is apparently in heart failure. I discussed this case with the hospitalist, who believes he has cardiorenal syndrome. I also discussed his case with the on-call commercial makeup artist, who will see him in the hospital. Furosemide was ordered to help reduce his fluid overload. - Lab Data Lab results reviewed: Yes I reviewed the patient's lab results. Lab results narrative: CBC was unremarkable BMP showed renal insufficiency at 45 and 2.28 Troponin was slightly elevated at 0.07 Result diagrams: 02/05/18 09:43 02/05/18 09:43 Lab Results 02/05/18 02/05/18 Range/Units 09:43 09:43 WBC 7.7 (4.3-11.1) K/mcL RBC 5.16 (4.19-5.50) M/mcL Hgb 16.1 (12.9-16.9) g/dL Hct 48.2 (37.5-50.1) % MCV 93.4 (83.0-100.0) fL MCH 31.2 (28.0-33.3) pg MCHC 33.4 (31.6-35.5) g/dL RDW 16.1 H (11.5-14.5) % Plt Count 114 L (140-400) K/mcL MPV 13.7 H (9.4-12.4) fL Immature Gran % 0.4 (0-4) % Seg Neutrophils % 84.7 % Lymphocytes % 4.7 % Monocytes % 9.7 % Eosinophils % 0.1 % Basophils % 0.4 % Neutrophils # 6.6 (1.6-8.9) K/mcL Lymphocytes # 0.4 L (0.6-4.6) K/mcL Monocytes # 0.8 (0.0-1.3) K/mcL Eosinophils # 0.0 (0.0-0.6) K/mcL Basophils # 0.0 (0.0-0.2) K/mcL Nucleated RBCs/100 WBC 0.3 H (0) /100 WBC Sodium 131 L (136-145) mEq/L Potassium 4.8 (3.5-5.1) mEq/L Chloride 98 (98-107) mEq/L Carbon Dioxide 22 L (23-29) mEq/L BUN 45 H (8-23) mg/dL Creatinine 2.28 H (0.70-1.30) mg/dL Est GFR ( Amer) 33 L (> 60) Est GFR (Non-Af Amer) 28 L (> 60) BUN/Creatinine Ratio 20 (6-26) Glucose 180 H (70-105) mg/dL Calculated Osmolality 288 (280-300) Calcium 8.5 L (8.6-10.3) mg/dL Troponin I 0.07 H* (< 0.04) ng/mL - Radiology Data Radiology results reviewed: Yes I reviewed the patient's radiology results. Chest x-ray showed no acute findings - EKG Data EKG #1 EKG attestation: Yes I reviewed and interpreted this EKG. EKG results narrative: ECG shows a paced rhythm at 72 bpm with 1 PVC, ST deviations are all unremarkable, none violate Sgarbossa criteria Critical Care Time Critical Care Time: Yes Total Critical Care Time: 15 Attestation: 15 minutes of critical care time was invested independent of other separately billable procedures
[2018-02-05 10:12] LABS: Basophils % 0.4 %; Eosinophils % 0.1 %; Hematocrit 48.2 % (37.5-50.1); Hemoglobin 16.1 g/dL (12.9-16.9); Immature Granulocytes % 0.4 % (0-4); Lymphocytes # 0.4 K/mcL (0.6-4.6); Lymphocytes % 4.7 %; Mean Corpuscular HGB Conc 33.4 g/dL (31.6-35.5); Mean Corpuscular Hemoglobin 31.2 pg (28.0-33.3); Mean Corpuscular Volume 93.4 fL (83.0-100.0); Mean Platelet Volume 13.7 fL (9.4-12.4); Monocytes # 0.8 K/mcL (0.0-1.3); Monocytes % 9.7 %; Neutrophils # 6.6 K/mcL (1.6-8.9); Nucleated Red Blood Cells 0.3 /100 WBC (0); Platelet Count 114 K/mcL (140-400); Red Blood Count 5.16 M/mcL (4.19-5.50); Red Cell Distribution Width 16.1 % (11.5-14.5); Segmented Neutrophils % 84.7 %
[2018-02-05 10:31] LABS: Calcium 8.5 mg/dL (8.6-10.3); Potassium 4.8 mEq/L (3.5-5.1)
[2018-02-05 10:38] LABS: Troponin I 0.07 ng/mL (< 0.04)
[2018-02-05] MEDS ORDERED: Furosemide 40 MG/4 ML VIAL IVP ONE (11:26)
--- NOTE | 2018-02-05 11:43 | Internal Med History&Physical ---
Date of Encounter: 02/05/18 Time of Encounter: 11:43 Internal Medicine - H&P: HPI Chief complaint: SOB Admitted From: Home History of present illness: Mr. Taylor is a 83 year old male history of 2 heart valve replacements in 2010, who presented to ER with progressive worsening of shortness of breath with associated with 3+ edema of the LE and gaining more than 10 pounds, The patient was evaluated by the ER Staff and labs revealed DARWIN, hyponatremia. As per at bedside he was scheduled to see nephrology this month for progressive worsening of kiddy function. The patient was admitted for further evaluation. Past Med Surg Social Fam HX - Past Medical History Medical history: atrial fibrillation, CHF, coronary artery disease, hyperlipidemia, hypertension, osteoporosis Psychiatric history: no psych history - Past Surgical History Surgical History: pacemaker/AICD Additional surgical history: mitral valve replacement - Social History Smoking Status: Former smoker Smokeless Tobacco Status: No Alcohol use: none Drug use: none - Family History Mother Age at : 51 Hx Family Cardiac Disorders: Yes ([place] at 51) Hx Family Cancer: Yes (leukemia) Father Living Status: Age at : 91 Hx Family Neurologic Disorders: Yes (CVA) Internal Medicine - H&P: Meds Atorvastatin Calcium [Lipitor] 80 mg PO HS 01/15/17 [History] Finasteride [Proscar] 5 mg PO DAILY 01/15/17 [History] Metoprolol Tartrate [Lopressor] 25 mg PO BID 01/15/17 [History] Spironolactone [Aldactone] 25 mg PO BID 01/15/17 [History] Tamsulosin [Flomax] 0.4 mg PO DAILY 01/15/17 [History] Torsemide [Demadex] 20 mg PO DAILY 01/15/17 [History] Warfarin Sodium 1.25 mg PO TH 01/15/17 [History] Warfarin Sodium 2.5 mg PO SUMOTUWEFRSA 01/15/17 [History] Folic Acid/Multivit-Min/Lutein [Cvs Spectravite Adult Tab Chew] 1 tab PO DAILY 02/01/17 [History] Glucosamine/Chondroitin Sulf A [Cvs Glucosamine-Chondroit Chew] 1 tab PO BID 02/01/17 [History] Melatonin 10 mg PO HS 02/05/18 [History] Allergy/AdvReac Type Severity Reaction Status Date / Time Sulfa (Sulfonamide Allergy Rash Verified 02/05/18 11:59 Antibiotics) lisinopril AdvReac Cough Verified 02/05/18 11:59 All Systems PM: A 10-system review of systems was performed and is negative for pertinent findings except as documented above in the HPI. - Constitutional Constitutional: no chills, no fever(s), no night sweats - Cardiovascular Cardiovascular ROS IM: dyspnea, dyspnea on exertion, edema, orthopnea, no chest pain, no diaphoresis, no lightheadedness, no palpitations, no syncope - Respiratory Respiratory: dyspnea, no cough, no wheezing, no excessive phlegm production - Gastrointestinal Gastrointestinal: no abdominal pain, no diarrhea, no hematemesis, no hematochezia, no melena, no nausea, no vomiting - Neurological Neurological ROS: no confusion, no convulsions, no focal weakness, no numbness, no tingling, no tremor(s) - Constitutional Vitals: Temp Pulse Resp BP Pulse Ox 97.2 F L 96 16 98/64 99 02/05/18 09:35 02/05/18 09:35 02/05/18 09:35 02/05/18 09:35 02/05/18 09:40 General appearance: Present: A&O X 3 Exam: as above - Head Head exam: Present: atraumatic, normocephalic - Neck Neck exam general surgery: Present: supple, trachea midline. Absent: lymphadenopathy - Respiratory Respiratory exam: Present: decreased breath sounds. Absent: accessory muscle use, rales, rhonchi, wheezes - Cardiovascular Cardiovascular exam: Present: irregular rhythm. Absent: diastolic murmur, gallop, rubs, systolic murmur - GI/Abdominal GI/Abdominal exam: Present: normal bowel sounds, soft, no peritoneal signs. Absent: distended, tenderness - Extremities Exam Extremities exam: Present: pedal edema, warm, radial pulses palpable and symmetrical. Absent: calf tenderness, cyanotic Internal Med - H&P Results - Labs CBC & Chem 7: 02/06/18 00:24 02/06/18 00:24 Labs: Short CBC 02/05/18 Range/Units 09:43 WBC 7.7 (4.3-11.1) K/mcL Hgb 16.1 (12.9-16.9) g/dL Hct 48.2 (37.5-50.1) % Plt Count 114 L (140-400) K/mcL Neutrophils # 6.6 (1.6-8.9) K/mcL BMP 02/05/18 09:43 Sodium 131 L Potassium 4.8 Chloride 98 Carbon Dioxide 22 L BUN 45 H Creatinine 2.28 H Glucose 180 H Calcium 8.5 L Cardiac Enzymes 02/05/18 Range/Units 09:43 Troponin I 0.07 H* (< 0.04) ng/mL - Impressions ITS Impressions Chest X-Ray 02/05/18 09:43 IMPRESSION: Cardiomegaly with no acute finding or significant change. D/ / Reagan Bullock MD / Reagan Bullock MD Interpreting Provider: Reagan Bullock MD - Assessment and plan (1) Acute on chronic systolic CHF (congestive heart failure), NYHA class 3 Current Visit: Yes Status: Acute Assessment and plan: ASSESSMENT: - SOB due to CHF exacerbation due to PLAN: - CPP x 1 more, 8 hr after the 1st one - EKG in AM - O2 to keep SpO2 > 92% - Lasix 40 mg IV BID - 2D Echo - Fasting lipids - Tylenol 650 mg PO q 4-6 hr PRN pain (2) DARWIN (acute kidney injury) Current Visit: No Status: Acute Assessment and plan: Most likely 2/2 pre-renal etiology due to decreased forward flow in the sitting of cardio-renal syndrome We consulted nephrology , the patient s/p 80 mg po x1 , we will continue lasix 40 mg BID to improve forward flow and renal perfusion. Strict I/Os , Fluid restriction. (3) History of heart valve replacement with porcine valve Current Visit: No Status: Acute Assessment and plan: Cardiology is consulted, appreciate recommendation (4) Elevated troponin Current Visit: Yes Status: Acute Assessment and plan: Mildly elevated in the sitting of DARWIN, No chest pain. (5) Atrial fibrillation Current Visit: Yes Status: Acute Assessment and plan: Rate is controlled, cardiology following Qualifiers: Atrial fibrillation type: chronic Qualified Code(s): I48.2 - Chronic atrial fibrillation (6) Hypercoagulable state Current Visit: Yes Status: Acute Assessment and plan: The patient on chronic anticoagulation with Coumadin for A.fib, no sign of bleeding, we will hold Coumadin for now, repeat PT/INR. Spoke to pharmacy no indication for vitamin K or reversal since no bleeding, pharmacy was consulted for further dosing. (7) Hyponatremia Current Visit: Yes Status: Acute Assessment and plan: Hypervolumic hyponatremia in the sitting of CHF, optimizing volume control with diuretics. (8) DVT prophylaxis Current Visit: Yes Status: Acute Assessment and plan: The patient on chronic anticoagulation with Coumadin and elevated PT/INR - Time Spent With Patient Total time spent is greater than 50% in coordination of care (as documented) at patient's floor/unit and/or counseling patient:
[2018-02-05] MEDS ORDERED: Naloxone 0.4 MG/ML INJ IVP PRN (12:53)
--- NOTE | 2018-02-05 13:32 | Electrocardiograph Report ---
[employer] Test Date: 2018-02-05 Pat Name: Pierre Taylor Department: EXAM8 Room: 3B31 Gender: M Supervisor Frame Sample And Pattern: : 1935 Requested By: Diony Wright Order Number: [id number] Reading MD: Albaro Baez Measurements Intervals [place] Rate: 72 P: 0 NM: 45 QRS: 105 QRSD: 193 T: 267 QT: 508 QTc: 643 Interpretive Statements Ventricular-paced complexes No further analysis attempted due to paced rhythm Electronically Signed On 02-05-2018 13:30:47 EDT by Albaro Baez
--- NOTE | 2018-02-05 13:46 | Cardiology Consult Note ---
<Omid Mahoney R - Last Filed: 02/05/18 14:05> Date of Encounter: 02/05/18 Time of Encounter: 13:34 Assessment and Plan (1) Acute on chronic systolic CHF (congestive heart failure), NYHA class 3 Current Visit: Yes Status: Acute Known hx systolic CHF with BiV ICD in place. Presents with worsening BLE edema, dyspnea, orthopnea and 10 lb weight gain in 2 weeks. CXR no acute findings, but pt is fluid overloaded on exam. Check BNP. TTE reviewed from [facility] 09/2017. EF mildly reduced ~50%. Diastolic function not evaluated due to AF and V pacing. Pt admits to compliance with Na restriction, but reports that he drinks "lots of ice water". Hospitalist gave one time dose of 80mg IV Lasix. Creatinine 2.28--nephrology was consulted. Appreciate their help/recommendations with diuresis. Recommend strict I/Os, Na and fluid restriction, daily weights. Will recheck TTE to evaluate structure and function. (2) S/P aortic valve and mitral valve replacement Current Visit: Yes Status: Acute S/P MVR and AVR in 2010. Recent TTE trivial MR, no AR noted. Moderate TR. Repeat TTE. (3) Elevated troponin Current Visit: Yes Status: Acute Initial troponin 0.07 in setting of DARWIN on CKD and acute on chronic CHF. Pt denies chest pain. Suspect demand ischemia, nondiagnostic for ACS, but will trend for total of 3. Check TTE. (4) Atrial fibrillation Current Visit: Yes Status: Acute Known A-Fib, anticoagulated on Coumadin and hx of MAZE procedure. HR currently 90s. Home BB Lopressor 25mg BID. Check INR--managed by [facility]. Qualifiers: Atrial fibrillation type: chronic Qualified Code(s): I48.2 - Chronic atrial fibrillation Discussion w patient/family: The assessment and plan as outlined above was discussed with the patient and/or family members who expressed understanding and agreement. All questions were answered. Thank you for involving us in the care of your patient. Please call with any questions. I will discuss all the above with Dr. Massey and make changes as necessary. History of Present Illness Consult date: 02/05/18 Requesting physician: Sima Amin Consult reason: CHF, elevated troponin Chief complaint: dyspnea, LE edema History of present illness: Mr. Taylor is a 83 year old male with PMH of 2 valve replacements in 2010--aortic and mitral valves, A-Fib on Coumadin s/p MAZE procedure, systolic CHF with BiV ICD placement, HTN, HLD that presented to ED for CC of worsening dyspnea, LE edema and 10 lb weight gain in 2 weeks. Pt reports that symptoms started initially in mid September. He saw his director oncology at [facility] in November and PO diuretics were increased. He lost ~20 lbs and was feeling better until 2 weeks ago when symptoms and weight gain worsened. Also found to have DARWIN on CKD, Creatinine 2.28. Initial troponin 0.07. Pt denies chest pain. Reports L HC in 2010 prior to valve replacements without intervention. Pt admits to orthopnea. He reports limiting salt intake but admits to drinking "lots of ice water". TTE reviewed from [facility] 09/29/17: EF mildly reduced ~50%, Prosthetic AV no AR. PG 13mmHg, PV 182.0cm/s. MG 8mmHg. 0.56. Prosthetic MV trivial MR, PG 8mmHg, MG 4mmHg. Moderate TR. Past Med Surg Social Fam HX - Past Medical History Medical history: atrial fibrillation, cardiomyopathy, CHF, hyperlipidemia, hypertension, osteoporosis, valvular heart disease Psychiatric history: no psych history - Past Surgical History Surgical History: pacemaker/AICD, other Additional surgical history: mitral and aortic valve replacement - Social History Smoking Status: Former smoker Smokeless Tobacco Status: No Alcohol use: none Drug use: none - Family History Father Living Status: Age at : 91 Hx Family Neurologic Disorders: Yes (CVA) Mother Age at : 51 Hx Family Cardiac Disorders: Yes ([place] at 51) Hx Family Cancer: Yes (leukemia) Medications and Allergies RX: Atorvastatin Calcium [Lipitor] 80 mg PO HS 01/15/17 [History] RX: Finasteride [Proscar] 5 mg PO DAILY 01/15/17 [History] RX: Metoprolol Tartrate [Lopressor] 25 mg PO BID 01/15/17 [History] RX: Spironolactone [Aldactone] 25 mg PO BID 01/15/17 [History] RX: Tamsulosin [Flomax] 0.4 mg PO DAILY 01/15/17 [History] RX: Torsemide [Demadex] 20 mg PO DAILY 01/15/17 [History] RX: Warfarin Sodium 1.25 mg PO TH 01/15/17 [History] RX: Warfarin Sodium 2.5 mg PO SUMOTUWEFRSA 01/15/17 [History] RX: Folic Acid/Multivit-Min/Lutein [Cvs Spectravite Adult Tab Chew] 1 tab PO DAILY 02/01/17 [History] RX: Glucosamine/Chondroitin Sulf A [Cvs Glucosamine-Chondroit Chew] 1 tab PO BID 02/01/17 [History] RX: Melatonin 10 mg PO HS 02/05/18 [History] Allergy/AdvReac Type Severity Reaction Status Date / Time Sulfa (Sulfonamide Allergy Rash Verified 02/05/18 11:59 Antibiotics) lisinopril AdvReac Cough Verified 02/05/18 11:59 All Systems Review: The remainder of the systems were reviewed and are negative - Cardiovascular Cardiovascular: as per HPI, dyspnea at rest, dyspnea on exertion, leg edema, orthopnea, paroxysmal nocturnal dyspnea - Respiratory Respiratory: cough, dyspnea Physical Examination Vital Signs, Last 4 Hours Temp Pulse Resp BP Pulse Ox 02/05/18 13:10 97.4 F L 72 16 97/59 96 02/05/18 12:26 91 20 103/92 99 02/05/18 11:00 83 20 107/76 96 02/05/18 09:40 99 02/05/18 09:35 97.2 F L 96 16 98/64 96 Vital Signs Temp Pulse Resp BP Pulse Ox 02/05/18 13:10 97.4 F L 72 16 97/59 96 02/05/18 12:26 91 20 103/92 99 02/05/18 11:00 83 20 107/76 96 02/05/18 09:40 99 02/05/18 09:35 97.2 F L 96 16 98/64 96 02/05/18 09:21 97.2 F L 96 16 98/64 96 Intake and Output 02/04/18 02/05/18 02/05/18 23:59 07:59 15:59 Other: Weight 83.007 kg Patient Weight 02/05/18 23:59 Weight 83.007 kg General: Conversant, No Apparent Distress HEENT: Atraumatic, Normocephaly, Mucus Membranes Moist Neck: Normal carotid pulses Cardiac: Other (irregularly irregular rhythm) Lungs: Other (diminished) Neuro: Alert and responsive, No focal deficits noted Abdomen: Soft, Non-Tender Skin: No rashes noted on visualized skin Musculoskeletal: No Chest Wall Tenderness Extremities: Other (3+ BLE edema) Results 02/05/18 09:43 02/05/18 09:43 Lab Results 02/05/18 02/05/18 09:43 09:43 WBC 7.7 Hgb 16.1 Hct 48.2 Plt Count 114 L Sodium 131 L Potassium 4.8 Chloride 98 Carbon Dioxide 22 L BUN 45 H Creatinine 2.28 H Glucose 180 H Calcium 8.5 L Troponin I 0.07 H* Short CBC 02/05/18 Range/Units 09:43 WBC 7.7 (4.3-11.1) K/mcL Hgb 16.1 (12.9-16.9) g/dL Hct 48.2 (37.5-50.1) % Plt Count 114 L (140-400) K/mcL Neutrophils # 6.6 (1.6-8.9) K/mcL BMP 02/05/18 Range/Units 09:43 Sodium 131 L (136-145) mEq/L Potassium 4.8 (3.5-5.1) mEq/L Chloride 98 (98-107) mEq/L Carbon Dioxide 22 L (23-29) mEq/L BUN 45 H (8-23) mg/dL Creatinine 2.28 H (0.70-1.30) mg/dL Glucose 180 H (70-105) mg/dL Calcium 8.5 L (8.6-10.3) mg/dL Cardiac Enzymes 02/05/18 Range/Units 09:43 Troponin I 0.07 H* (< 0.04) ng/mL Impressions Chest X-Ray 02/05/18 09:43 IMPRESSION: Cardiomegaly with no acute finding or significant change. D/ / Reagan Bullock MD / Reagan Bullock MD Interpreting Provider: Reagan Bullock MD Active Medications Naloxone HCl (Narcan) 0.4 mg IVP Q2MIN PRN PRN Reason: SEE COMMENTS Stop: 04/23/19 12:54 - Imaging and Cardiology Echo: report reviewed Consult Discharge Plan - Plan Referrals: Tamiko Cortes MD [Primary Care Provider] - <Sheela Massey - Last Filed: 02/05/18 14:27> - Attending Attestation I have personally performed a face to face evaluation on this patient. I have reviewed and agree with the care plan. History and Exam by me shows: 83-year-old male status post AVR, MVR 2010, A. fib on Coumadin known nonischemic cardiomyopathy this post-ICD. Last ejection fraction 50% September 2017. Patient currently with signs of hypervolemia received Lasix 80 mg IV 1 with an creatinine of 2.2. Continue gentle diuresis with recommendations from nephrology. Repeat echocardiogram to evaluate for structural heart abnormalities Assessment and Plan Discussion w patient/family: The assessment and plan as outlined above was discussed with the patient and/or family members who expressed understanding and agreement. All questions were answered. Thank you for involving us in the care of your patient. Please call with any questions. History of Present Illness History of present illness: Mr. Taylor is a 83 year old male All Systems Review: The remainder of the systems were reviewed and are negative Physical Examination Vital Signs, Last 4 Hours Temp Pulse Resp BP Pulse Ox 02/05/18 13:10 97.4 F L 72 16 97/59 96 02/05/18 12:26 91 20 103/92 99 02/05/18 11:00 83 20 107/76 96 Results 02/05/18 09:43 02/05/18 09:43 Lab Results 02/05/18 02/05/18 02/05/18 09:43 09:43 13:42 WBC 7.7 Hgb 16.1 Hct 48.2 Plt Count 114 L Sodium 131 L Potassium 4.8 Chloride 98 Carbon Dioxide 22 L BUN 45 H Creatinine 2.28 H Glucose 180 H Calcium 8.5 L Troponin I 0.07 H* 0.07 H*
[2018-02-05 14:17] LABS: Chol/HDL Ratio 2.8 (0-4.9)
[2018-02-05 14:20] LABS: Troponin I 0.07 ng/mL (< 0.04)
[2018-02-05 14:55] LABS: INR 5.9
[2018-02-05 14:56] LABS: Prothrombin Time 66.4 Seconds (9.4-12.1)
--- NOTE | 2018-02-05 15:15 | Event Note ---
Date of Encounter: 02/05/18 Time of Encounter: 15:13 Nephrology Chart Review I reviewed his diuretic regimen and agree, plus recommend strict I/Os (to assess his urine output response), daily weights and SCr, all of which will help guide the diuresis. Full consult to follow tomorrow. Thank you
[2018-02-05 15:57] LABS: Protein/Creatinine Ratio,Urine 0.74 mg/mg (0.00-0.20)
[2018-02-05 16:06] LABS: Bilirubin,Urine Negative (Negative); Blood,Urine Small (Negative); Clarity,Urine Cloudy (Clear); Color,Urine Yellow (Yellow); Glucose,Urine (UA) Normal (Normal); Ketones,Urine Negative (Negative); Leukocyte Esterase,Urine Small (Negative); Nitrite,Urine Negative (Negative); PH,Urine 5.5 pH Units (5.0-8.0); Protein,Urine Trace mg/dL (Neg-Trace); Specific Gravity,Urine 1.017 (1.010-1.025); Urobilinogen,Urine Normal (Normal)
[2018-02-05 16:09] LABS: Bacteria,Urine Few per hpf (None-Few); Hyaline Casts,Urine None Seen per lpf (None-Few); RBC,Urine 0-3 per hpf (0-3); Squamous Epithelial Cell,Urine Many per lpf (None-Few)
[2018-02-05 16:46] LABS: Creatinine,Urine 42 mg/dL; Microalbum/Creatinine Ratio,Ur 133 mcg/mg (Less than 30); Microalbumin,Urine 56 mg/L
[2018-02-05 20:20] LABS: Potassium,Urine 41.5 mEq/L; Sodium, Urine 46.6 mEq/L
[2018-02-06 01:08] LABS: Basophils # 0.1 K/mcL (0.0-0.2); Basophils % 0.7 %; Eosinophils % 0.1 %; Hematocrit 44.3 % (37.5-50.1); Hemoglobin 15.1 g/dL (12.9-16.9); Immature Granulocytes % 0.3 % (0-4); Lymphocytes # 0.5 K/mcL (0.6-4.6); Lymphocytes % 6.8 %; Mean Corpuscular HGB Conc 34.1 g/dL (31.6-35.5); Mean Corpuscular Hemoglobin 31.1 pg (28.0-33.3); Mean Corpuscular Volume 91.3 fL (83.0-100.0); Mean Platelet Volume 13.3 fL (9.4-12.4); Monocytes # 0.9 K/mcL (0.0-1.3); Monocytes % 12.6 %; Neutrophils # 5.8 K/mcL (1.6-8.9); Nucleated Red Blood Cells 0.5 /100 WBC (0); Platelet Count 102 K/mcL (140-400); Red Blood Count 4.85 M/mcL (4.19-5.50); Red Cell Distribution Width 16.1 % (11.5-14.5); Segmented Neutrophils % 79.5 %
[2018-02-06 01:28] LABS: Albumin 3.2 g/dL (3.5-5.7); Albumin/Globulin Ratio 1.5 (1.1-2.2); Bilirubin,Total 1.7 mg/dL (0.3-1.0); Calcium 8.6 mg/dL (8.6-10.3); Globulin 2.2 g/dL (2.4-3.5); Magnesium 2.5 mg/dL (1.6-2.6); Phosphorous 2.9 mg/dL (2.7-4.5); Potassium 4.3 mEq/L (3.5-5.1); Total Protein 5.4 g/dL (6.4-8.9)
[2018-02-06 06:47] LABS: INR 5.9; Prothrombin Time 66.6 Seconds (9.4-12.1)
[2018-02-06] MEDS: Furosemide 40 MG/4 ML VIAL IVP SCH ×2 (08:51→17:07)
[2018-02-06] MEDS: Finasteride 5 MG TABLET PO SCH (08:53)
[2018-02-06] MEDS: Multivit/Ca/Min/Fe/FA 1 TAB TABLET PO SCH (08:53)
--- NOTE | 2018-02-06 11:25 | Internal Med Progress Note ---
Hospitalist Progress Note - Encounter Date of Encounter: 02/06/18 Time of Encounter: 10:35 - Subjective Interval History: Patient seen and evaluated at bedside, denies shortness of breath, but reports a nonproductive intermittent cough. Reports swelling of his legs for the past couple of days. Denies chest pain, abdominal pain, nausea or vomiting. - Exam Vitals: Temp Pulse Resp BP Pulse Ox 97.4 F L 93 15 101/75 95 02/06/18 06:48 02/06/18 06:48 02/06/18 06:48 02/06/18 06:48 02/06/18 06:48 Exam: General: Alert and oriented 4. In mild distress due to edema in his lower extremities. Skin: Normal color, no rash, no lesions. HEENT: EOM, pupils equal, round and reactive. Hard hearing Cardiovascular: Irregularly, irregular, Normal S1 & S2, no rubs, murmurs or gallops. No hepato jugular reflex. Lungs: Clear source auscultation bilaterally, no wheezes or crackles. Abdomen: Soft, mildly tender to deep palpation in the left lower quadrant, no rigidity. NABS in all 4 quadrants Extremities: 3+ pitting edema. Neurological: Normal cognition and motor skills. Rest of the physical exam is non contributory - Assessment and Plan (1) Acute on chronic systolic CHF (congestive heart failure), NYHA class 3 Current Visit: Yes Status: Acute Assessment and Plan: Chest is clear to auscultation bilaterally. 3+ edema in the lower extremity. Plan: To continue gentle IV diruresis with furosemide 40mg/IV BID strict intake and output water restriction to 1.5 litters a day. daily weight 2 gram sodium diet will continue to follow cardiology recommendations ACEs has been held due to DARWIN Continue low dose beta-jalyn (2) DARWIN (acute kidney injury) Current Visit: No Status: Acute Assessment and Plan: Most likely due to cardiorenal syndrome. Plan of care as above. Avoid nephrotoxic medication. Nephrology has been consulted, will follow recommendation. (3) Atrial fibrillation Current Visit: Yes Status: Chronic Assessment and Plan: Rate controlled on metoprolol. On warfarin due to high [id number] score. (4) Elevated troponin Current Visit: Yes Status: Acute Assessment and Plan: Likely due to demand ischemia in the setting of acute CHF exacerbation. Cardiology consulted and recommended against any intervention. (5) Hyponatremia Current Visit: Yes Status: Acute Assessment and Plan: Sodium 132 today, no neurological symptoms. Hyponatremia most likely due to CHF. (6) History of heart valve replacement with porcine valve Current Visit: No Status: Acute (7) Supratherapeutic INR Current Visit: Yes Status: Acute Assessment and Plan: INR 5.9. No signs of active bleeding. Hold today's dose of warfarin Repeat INR tomorrow morning. Course either vitamin K, if INR remains supratherapeutic. (8) Elevated liver enzymes Current Visit: Yes Status: Acute Assessment and Plan: Likely secondary to hepatic congestion due to CHF. LFTs in the morning Hold atorvastatin If LFTs continue to trend up despite appropriate diuresis consider GI consult DVT Prophylaxis: Patient anticoagulated with warfarin. INR supratherapeutic. - Summary of Assessment and Plan Summary of Assessment and Plan: Patient is to remain in the hospital to continue IV diuresis and kidney function monitoring. - Time Spent with Patient Total time spent is greater than 50% in coordination of care (as documented) at patient's floor/unit and/or counseling patient: 25 - 35 minutes Plan of Care Discussed with: patient (His and the nurse.) Internal Medicine: Result - Labs CBC & Chem 7: 02/06/18 00:24 02/06/18 00:24 Labs: Short CBC 02/06/18 Range/Units 00:24 WBC 7.3 (4.3-11.1) K/mcL Hgb 15.1 (12.9-16.9) g/dL Hct 44.3 (37.5-50.1) % Plt Count 102 L (140-400) K/mcL Neutrophils # 5.8 (1.6-8.9) K/mcL BMP 02/06/18 00:24 Sodium 132 L Potassium 4.3 Chloride 101 Carbon Dioxide 20 L BUN 44 H Creatinine 2.11 H Glucose 95 Calcium 8.6 Cardiac Enzymes 02/05/18 02/05/18 02/05/18 Range/Units 09:43 13:42 20:41 Troponin I 0.07 H* 0.07 H* 0.06 H* (< 0.04) ng/mL 02/06/18 02/06/18 Range/Units 00:24 06:11 Troponin I 0.07 H* 0.07 H* (< 0.04) ng/mL Liver Function 02/06/18 Range/Units 00:24 Total Bilirubin 1.7 H (0.3-1.0) mg/dL AST 176 H (13-39) Units/L ALT 197 H (7-52) Units/L Alkaline Phosphatase 178 H (34-104) Units/L Albumin 3.2 L (3.5-5.7) g/dL Urine 02/05/18 Range/Units 15:40 Urine Color Yellow (Yellow) Urine Clarity Cloudy A (Clear) Urine pH 5.5 (5.0-8.0) pH Units Ur Specific [place] 1.017 (1.010-1.025) Urine Protein Trace (Neg-Trace) mg/dL Urine Glucose (UA) Normal (Normal) mg/dL - ABG Interpretation ABG results: PT/INR, D-dimer PT 66.6 Seconds (9.4-12.1) H* 02/06/18 06:11 - Impressions Impressions Echocardiogram 02/05/18 14:08 Impressions: LVEF 55%. Atypical septal motion consistent with post-operative status. Indeterminate diastolic function. Mild to moderately dilated RV with mild reduction in function. Bi-atrial enlargement. Bioprosthetic aortic valve not well visualized. Doppler gradient not optimally obtained. No regurgitation. Bioprosthetic mitral valve not well visualized. Mild mitral regurgitation. No Doppler evidence for stenosis. Moderate tricuspid regurgitation. Mild pulmonic regurgitation. No pulmonary hypertension based on TR gradient obtained. May be underestimated. Dilated aortic root, 4.1 cm. Consult Discharge Plan - Plan Referrals: Gael Vigil DO [Partnered Physician] - 02/14/18 3:55 pm Tamiko Cortes MD [Primary Care Provider] - 02/23/18 9:45 am (3) Atrial fibrillation Qualifiers: Atrial fibrillation type: chronic Qualified Code(s): I48.2 - Chronic atrial fibrillation
--- NOTE | 2018-02-06 11:28 | Nephrology Consult Note ---
Addendum entered and electronically signed by Gael Vigil DO 02/12/18 13:32: I have personally performed a face to face evaluation on this patient. I have reviewed and agree with the care plan. History and Exam by me shows: 83 y/o gentleman with a pmh of AF, CHF and et al who presented with DARWIN. Will start a renal work up and in the meantime, I recommend following a renal protective strategy as able. 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 Will follow with you. Thank you for consulting the [facility] group. Original Note: Date of Encounter: 02/06/18 Time of Encounter: 11:16 Assessment and Plan (1) DARWIN (acute kidney injury) Current Visit: No Status: Acute Scr is 2.11 and GFR is 30 today. Avoid nephrotoxins and renal dose. Continue Lasix BID for diuresis. CKD workup was started in the outpatient setting. (2) Nausea and vomiting Current Visit: No Status: Acute Supportive care. Per primary. Qualifiers: Vomiting type: unspecified Vomiting Intractability: non-intractable Qualified Code(s): R11.2 - Nausea with vomiting, unspecified (3) Atrial fibrillation Current Visit: Yes Status: Chronic Per primary. Qualifiers: Atrial fibrillation type: chronic Qualified Code(s): I48.2 - Chronic atrial fibrillation (4) Congestive heart failure Current Visit: Yes Status: Acute 1.5 Liter fluid restriction. Daily weights. Strict I/O Qualifiers: Heart failure type: diastolic Heart failure chronicity: acute on chronic Qualified Code(s): I50.33 - Acute on chronic diastolic (congestive) heart failure History of Present Illness - Reason for Consult Consult date: 02/06/18 Acute Kidney Injury, Chronic Kidney Disease Requesting physician: Sima Amin - Chief Complaint cough/juan manuel - History of Present Illness Mr. Taylor is an 83 year old male who presented to ED with cough, JUAN MANUEL, and swelling. PMH: atrial fibrillation, CHF, coronary artery disease, hyperlipidemia, hypertension, osteoporosis. He has never been told he has CKD but he is scheduled on February [address] Vigil as a new patient. His PCP had referred him. He reports that his "dry cough" and difficult y in breathing started a week ago, but had gotten progressively worse the day before he came to the ED. He also tells me that he was not urinating much at home and had poor appetite. He did continue to drink a good amount of fluid at home. He is on Demedex 20 mg PO daily at home. Denies any use of NSAIDs. Denies any changes in PMH or medication changes recently. Denies CP admits to shortness of breath and fatigue. Denies nausea/vomiting/diarrhea. Denies any productive sputum, fever or chills. He lives at home with his . Denies tobacco history, admits to drinking 3 drinks a week, typically with dinner on Monday/Monday/Monday, denies illicit drug use. Denies any FH of CKD or HD. Past Med Surg Social Fam HX - Past Medical History Medical history: atrial fibrillation, CHF, coronary artery disease, hyperlipidemia, hypertension, osteoporosis Psychiatric history: no psych history - Past Surgical History Surgical History: pacemaker/AICD Additional surgical history: mitral valve replacement - Social History Smoking Status: Former smoker Smokeless Tobacco Status: No Alcohol use: none Drug use: none - Family History Mother Age at : 51 Hx Family Cardiac Disorders: Yes (HI at 51) Hx Family Cancer: Yes (leukemia) Father Living Status: Age at : 91 Hx Family Neurologic Disorders: Yes (CVA) Medications and Allergies Atorvastatin Calcium [Lipitor] 80 mg PO HS 01/15/17 [History] Finasteride [Proscar] 5 mg PO DAILY 01/15/17 [History] Metoprolol Tartrate [Lopressor] 25 mg PO BID 01/15/17 [History] Spironolactone [Aldactone] 25 mg PO BID 01/15/17 [History] Tamsulosin [Flomax] 0.4 mg PO DAILY 01/15/17 [History] Torsemide [Demadex] 20 mg PO DAILY 01/15/17 [History] Warfarin Sodium 1.25 mg PO TH 01/15/17 [History] Warfarin Sodium 2.5 mg PO SUMOTUWEFRSA 01/15/17 [History] Folic Acid/Multivit-Min/Lutein [[facility]vs Spectravite Adult Tab Chew] 1 tab PO DAILY 02/01/17 [History] Glucosamine/Chondroitin Sulf A [Cvs Glucosamine-Chondroit Chew] 1 tab PO BID 02/01/17 [History] Melatonin 10 mg PO HS 02/05/18 [History] Allergy/AdvReac Type Severity Reaction Status Date / Time Sulfa (Sulfonamide Allergy Rash Verified 02/05/18 11:59 Antibiotics) lisinopril AdvReac Cough Verified 02/05/18 11:59 Review of Systems All Systems review (narrative): The remainder of the systems are negative. Constitutional: no chills, no fatigue, no fever(s) Cardiovascular: dyspnea, edema, orthopnea, no chest pain, no palpitations Respiratory: cough, dyspnea on exertion, no hemoptysis, no wheezing Gastrointestinal: no diarrhea, no nausea, no vomiting Exam - Vital Signs Vital signs: Initial Vital Signs Temp Pulse Resp BP Pulse Ox 97.2 F L 96 16 98/64 96 02/05/18 09:21 02/05/18 09:21 02/05/18 09:21 02/05/18 09:21 02/05/18 09:21 Vital Signs - Last 8 Hours Temp Pulse Resp BP Pulse Ox 02/06/18 06:48 97.4 F L 93 15 101/75 95 02/06/18 04:06 80/58 02/06/18 03:46 97.2 F L 73 16 79/54 100 Intake and Output 02/05/18 02/06/18 02/06/18 23:59 07:59 15:59 Intake Total 560 / 560 Output Total 200 / 200 Balance -200 / -200 560 / 560 Intake: Oral 560 / 560 Output: Urine 200 / 200 Other: Meal Breakfast Percent of Meal Consumed 60% Weight 84.9 kg Patient Weight 02/06/18 23:59 Weight 84.9 kg - General Appearance General appearance: well-developed, well-nourished EENT: ATNC, hearing intact, vision intact Neck: supple Respiratory: clear Cardiology: edema (+3 pitting edema to bilat lower extremities.), normal S1, normal S2 Gastrointestinal: normoactive bowel sounds, no tenderness, no guarding Integumentary: no rash, warm and dry Neurologic: alert and oriented x3 Psychiatric: mood/affect appropriate, cooperative Results - Lab Results 02/06/18 00:24 02/06/18 00:24 Most recent lab results Calcium 8.6 mg/dL (8.6-10.3) 02/06/18 00:24 Phosphorus 2.9 mg/dL (2.7-4.5) 02/06/18 00:24 Magnesium 2.5 mg/dL (1.6-2.6) 02/06/18 00:24 Urine Creatinine 40 mg/dL 02/05/18 15:40 Urine Sodium 46.6 mEq/L 02/05/18 15:40 Urine Total Protein 31 mg/dL (1-14) H 02/05/18 15:40 Consult Discharge Plan - Plan Referrals: Gael Vigil DO [Partnered Physician] - 02/14/18 3:55 pm Tamiko Cortes MD [Primary Care Provider] - 02/23/18 9:45 am
--- NOTE | 2018-02-06 13:13 | Cardiology Progress Note ---
Date of Encounter: 02/06/18 Time of Encounter: 13:11 Assessment and Plan (1) Acute on chronic systolic CHF (congestive heart failure), NYHA class 3 Current Visit: Yes Status: Acute Known hx systolic CHF with BiV ICD in place. TTE resulted--LVEF 55%. Current exacerbation diastolic in nature given preserved EF. Presents with worsening BLE edema, dyspnea, orthopnea and 10 lb weight gain in 2 weeks. CXR no acute findings, but pt is fluid overloaded on exam. BNP 1307. Pt admits to compliance with Na restriction, but reports that he drinks "lots of ice water". Agree with IV diuresis Lasix 40mg BID. Creatinine mildly improved today--2.11. Recommend strict I/Os, Na and fluid restriction, daily weights. Symptoms starting to improve. Recommend continued IV diuresis as renal function tolerates until pt is near baseline. Transition to PO diuretic prior to d/c. Cardiology signing off. Reconsult PRN. Follow-up with established director of blood at [facility] in 1-2 weeks. (2) S/P aortic valve and mitral valve replacement Current Visit: Yes Status: Acute S/P MVR and AVR in 2010. Recent TTE trivial MR, no AR noted. Moderate TR. Repeat TTE Bioprosthetic aortic valve not well visualized. Doppler gradient not optimally obtained. No regurgitation. Bioprosthetic mitral valve not well visualized. Mild mitral regurgitation. Moderate tricuspid regurgitation. Mild pulmonic regurgitation. (3) Elevated troponin Current Visit: Yes Status: Acute Initial troponin 0.07, 0.07, 0.06, 0.07, 0.07 in setting of DARWIN on CKD and acute on chronic CHF. Pt denies chest pain. Suspect demand ischemia, nondiagnostic for ACS. TTE EF preserved. No further inpt cardiac testing warranted. (4) Atrial fibrillation Current Visit: Yes Status: Chronic Known A-Fib, anticoagulated on Coumadin and hx of MAZE procedure. HR currently 90s. Home BB Lopressor 25mg BID. INR supratherapeutic 5.9. Denies active bleeding. Management per primary team. Qualifiers: Atrial fibrillation type: chronic Qualified Code(s): I48.2 - Chronic atrial fibrillation Discussion w patient/family: The assessment and plan as outlined above was discussed with the patient and/or family members who expressed understanding and agreement. All questions were answered. Thank you for involving us in the care of your patient. Please call with any questions. I will discuss all the above with Dr. Massey and make changes as necessary. Subjective Principal diagnosis: CHF Interval history: Pt reports feeling better today. LE edema and dyspnea improving per pt. TTE resulted--LVEF 55%. Atypical septal motion consistent with post-operative status. Indeterminate diastolic function. Mild to moderately dilated RV with mild reduction in function. Bi-atrial enlargement. Bioprosthetic aortic valve not well visualized. Doppler gradient not optimally obtained. No regurgitation. Bioprosthetic mitral valve not well visualized. Mild mitral r egurgitation. Moderate tricuspid regurgitation. Mild pulmonic regurgitation. Dilated aortic root, 4.1 cm. Objective Vital Signs, Last 4 Hours Temp Pulse Resp BP Pulse Ox 02/06/18 11:39 97.9 F 93 16 108/78 93 Vital Signs Temp Pulse Resp BP Pulse Ox 02/06/18 11:39 97.9 F 93 16 108/78 93 02/06/18 06:48 97.4 F L 93 15 101/75 95 02/06/18 04:06 80/58 02/06/18 03:46 97.2 F L 73 16 79/54 100 02/05/18 23:51 97.6 F 100 16 95/67 96 02/05/18 18:46 98.3 F 98 16 105/74 93 Intake and Output 02/05/18 02/06/18 02/06/18 23:59 07:59 15:59 Intake Total 960 / 960 Output Total 200 / 200 Balance -200 / -200 960 / 960 Intake: Oral 960 / 960 Output: Urine 200 / 200 Other: Meal Breakfast Percent of Meal Consumed 60% Weight 84.9 kg Patient Weight 02/06/18 23:59 Weight 84.9 kg General: Conversant, No Apparent Distress HEENT: Atraumatic, Normocephaly, Mucus Membranes Moist Neck: Normal carotid pulses Cardiac: Other (irregularly irregular, 2/6 DIONNE) Lungs: Other (diminished) Neuro: Alert and responsive, No focal deficits noted Abdomen: Soft, Non-Tender Skin: No rashes noted on visualized skin Musculoskeletal: No Chest Wall Tenderness Extremities: Other (2+ BLE edema) Results 02/06/18 00:24 02/06/18 00:24 Lab Results 02/05/18 02/05/18 02/05/18 13:42 14:19 14:19 WBC Hgb Hct Plt Count INR 5.9 H* Sodium Potassium Chloride Carbon Dioxide BUN Creatinine Glucose Calcium Magnesium Total Bilirubin AST ALT Alkaline Phosphatase Troponin I 0.07 H* B-Natriuretic Peptide 1307 H 02/05/18 02/06/18 02/06/18 20:41 00:24 00:24 WBC 7.3 Hgb 15.1 Hct 44.3 Plt Count 102 L INR Sodium Potassium Chloride Carbon Dioxide BUN Creatinine Glucose Calcium Magnesium Total Bilirubin AST ALT Alkaline Phosphatase Troponin I 0.06 H* 0.07 H* B-Natriuretic Peptide 02/06/18 02/06/18 02/06/18 00:24 06:11 06:11 WBC Hgb Hct Plt Count INR 5.9 H* Sodium 132 L Potassium 4.3 Chloride 101 Carbon Dioxide 20 L BUN 44 H Creatinine 2.11 H Glucose 95 Calcium 8.6 Magnesium 2.5 Total Bilirubin 1.7 H AST 176 H ALT 197 H Alkaline Phosphatase 178 H Troponin I 0.07 H* B-Natriuretic Peptide - Imaging and Cardiology Echo: report reviewed - EKG Interpretation EKG results cardiology: other (12 hr tele AVG HR 94, A-Fib) Consult Discharge Plan - Plan Referrals: Gael Vigil DO [Partnered Physician] - 02/14/18 3:55 pm Tamiko Cortes MD [Primary Care Provider] - 02/23/18 9:45 am
[2018-02-06] MEDS ORDERED: Warfarin perPT PO PRN (18:00)
[2018-02-06] MEDS: Melatonin 3 MG TABLET PO SCH (22:11)
[2018-02-07 05:18] LABS: INR 4.5; Prothrombin Time 50.3 Seconds (9.4-12.1)
[2018-02-07 05:25] LABS: Albumin/Globulin Ratio 1.4 (1.1-2.2); Bilirubin,Direct 0.9 mg/dL (0.0-0.2); Bilirubin,Indirect 1.1 mg/dL (0.0-1.2); Calcium 8.4 mg/dL (8.6-10.3); Globulin 2.2 g/dL (2.4-3.5); Magnesium 2.4 mg/dL (1.6-2.6); Phosphorous 3.2 mg/dL (2.7-4.5); Total Protein 5.2 g/dL (6.4-8.9)
[2018-02-07] MEDS: Furosemide 40 MG/4 ML VIAL IVP SCH ×2 (09:59→16:55)
[2018-02-07] MEDS: Multivit/Ca/Min/Fe/FA 1 TAB TABLET PO SCH (09:59)
[2018-02-07] MEDS: Finasteride 5 MG TABLET PO SCH (10:01)
--- NOTE | 2018-02-07 10:56 | Nephrology Progress Note ---
Addendum entered and electronically signed by Gael Vigil DO 02/12/18 13:34: I have personally performed a face to face evaluation on this patient. I have reviewed and agree with the care plan. History and Exam by me shows: Stable renal function while undergoing diuresis. Continue current care. Will sign-off. Please feel free to call or reconsult as needed. Thank you. Original Note: Date of Encounter: 02/07/18 Time of Encounter: 10:55 - Assessment and Plan (1) DARWIN (acute kidney injury) Current Visit: No Status: Acute Scr is 2.08 and GFR is 31. Uop is minimal at 400 yesterday. Unsure if this is accurate, no urine charted for today. Avoid nephrotoxins and renal dose. Continue Lasix BID for diuresis. CKD workup was started in the outpatient setting. Will sign off for now, please reconsult as needed. Patient does have an appt scheduled for 02/14/[address] Vigil. (2) Nausea and vomiting Current Visit: No Status: Acute Supportive care. Per primary. Qualifiers: Vomiting type: unspecified Vomiting Intractability: non-intractable Qualified Code(s): R11.2 - Nausea with vomiting, unspecified (3) Atrial fibrillation Current Visit: Yes Status: Chronic Per primary. Qualifiers: Atrial fibrillation type: chronic Qualified Code(s): I48.2 - Chronic atrial fibrillation (4) Congestive heart failure Current Visit: Yes Status: Acute 1.5 Liter fluid restriction. Daily weights. Strict I/O Qualifiers: Heart failure type: diastolic Heart failure chronicity: acute on chronic Qualified Code(s): I50.33 - Acute on chronic diastolic (congestive) heart failure Subjective Principal diagnosis: CHF Interval history: Pt seen and examined with at bedside. Denies CP/SOB. Admits to not urinating "very much" at a time. Objective - Vital Signs Vital signs: Vital Signs Temp Pulse Resp BP Pulse Ox 02/07/18 10:00 106/69 02/07/18 07:20 98.6 F 98 18 87/66 95 02/07/18 03:56 97.9 F 105 16 149/69 94 02/06/18 23:29 98.1 F 82 16 90/63 96 02/06/18 22:03 102/84 02/06/18 22:00 108 110/79 02/06/18 19:03 98.2 F 79 16 106/77 95 02/06/18 11:39 97.9 F 93 16 108/78 93 Intake and Output 02/06/18 02/07/18 02/07/18 23:59 07:59 15:59 Intake Total 240 / 240 420 / 420 Output Total 200 / 200 Balance 40 / 40 420 / 420 Intake: Oral 240 / 240 420 / 420 Output: Urine 200 / 200 Other: Meal Dinner Breakfast Percent of Meal Consumed 50% 100% # Voids 1 Weight 85.7 kg Patient Weight 02/07/18 23:59 Weight 85.7 kg - General Appearance General appearance: Present: well-developed, well-nourished EENT: Present: ATNC, hearing intact, vision intact Neck: Present: supple Respiratory: Present: clear Cardiology: Present: edema (+3 pitting edema noted to bilat lower extremities.), normal S1, normal S2 Gastrointestinal: Present: normoactive bowel sounds, no tenderness, no guarding Integumentary: Present: no rash, warm and dry Neurologic: Present: alert and oriented x3 Psychiatric: Present: mood/affect appropriate, cooperative - Lab 02/06/18 00:24 02/07/18 04:38 Most recent lab results Calcium 8.4 mg/dL (8.6-10.3) L 02/07/18 04:38 Phosphorus 3.2 mg/dL (2.7-4.5) 02/07/18 04:38 Magnesium 2.4 mg/dL (1.6-2.6) 02/07/18 04:38 Urine Creatinine 40 mg/dL 02/05/18 15:40 Urine Sodium 46.6 mEq/L 02/05/18 15:40 Urine Total Protein 31 mg/dL (1-14) H 02/05/18 15:40 Consult Discharge Plan - Plan Referrals: Gael Vigil DO [Partnered Physician] - 02/14/18 3:55 pm Tamiko Cortes MD [Primary Care Provider] - 02/23/18 9:45 am
--- NOTE | 2018-02-07 16:44 | Internal Med Progress Note ---
Hospitalist Progress Note - Encounter Date of Encounter: 02/07/18 Time of Encounter: 09:00 - Subjective Interval History: Patient was seen and examined at bedside earlier this morning. Currently patient states his breathing has improved he continues to have lower extremity swelling however he states it has also improved. - Exam Vitals: Temp Pulse Resp BP Pulse Ox 97.9 F 98 18 101/71 95 02/07/18 11:40 02/07/18 11:40 02/07/18 11:40 02/07/18 11:40 02/07/18 11:40 Exam: General: Alert and oriented 3. Skin: Normal color, no rash, no lesions. HEENT: EOM, pupils equal, round and reactive. Hard hearing Cardiovascular: Irregularly, irregular, Normal S1 & S2, no rubs, murmurs or gallops. No hepato jugular reflex. Lungs: Clear source auscultation bilaterally, no wheezes or crackles. Abdomen: Soft, mildly no tenderness, no rigidity. NABS in all 4 quadrants Extremities: 2+ pitting edema. Neurological: Normal cognition and motor skills. - Assessment and Plan (1) DARWIN (acute kidney injury) Current Visit: No Status: Acute Assessment and Plan: Most likely due to cardiorenal syndrome. Plan of care as above. Avoid nephrotoxic medication. Nephrology has been consulted, will follow recommendation. 02/07 Creatinine is improving 2.08 today GFR is 31 Continue with diuresis IV Lasix 40 mg twice a day Nephrology has been consulted-appreciate recommendations-can follow up as outpatient has an appointment 02/14/[address] Vigil Monitor intake and output daily weights Avoid nephrotoxins (2) Atrial fibrillation Current Visit: Yes Status: Chronic Assessment and Plan: Rate controlled on metoprolol. On warfarin due to high [id number] score. 02/07 Currently V paced-ray controlled continue with metoprolol Continue with warfarin-pharmacy to dose (3) History of heart valve replacement with porcine valve Current Visit: No Status: Acute Assessment and Plan: Cardiology is consulted, appreciate recommendation 02/07 Cardiology consult to appreciate recommendation (4) Elevated troponin Current Visit: Yes Status: Acute Assessment and Plan: Likely due to demand ischemia in the setting of acute CHF exacerbation. Cardiology consulted and recommended against any intervention. 02/07 Elevated troponin in setting of AK I MCTD and acute on chronic CHF no chest pain at this time Radiology has been consulted and suspect demand ischemia (5) Acute on chronic systolic CHF (congestive heart failure), NYHA class 3 Current Visit: Yes Status: Acute Assessment and Plan: Chest is clear to auscultation bilaterally. 3+ edema in the lower extremity. Plan: To continue gentle IV diruresis with furosemide 40mg/IV BID strict intake and output water restriction to 1.5 litters a day. 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 Hyponatremia most likely due to CHF. 02/07 Sodium is improving most likely related to CHF exacerbation we will continue with diuretics and monitor closely. No neurological symptoms noted (7) Supratherapeutic INR Current Visit: Yes Status: Acute Assessment and Plan: INR 5.9. No signs of active bleeding. Hold today's dose of warfarin Repeat INR tomorrow morning. Course either vitamin K, if INR remains supratherapeutic. 02/07 INR is trending down continue to hold warfarinsigns of active bleeding noted Continue to monitor INR daily Vitamin K if INR remains supratherapeutic (8) Elevated liver enzymes Current Visit: Yes Status: Acute Assessment and Plan: Likely secondary to hepatic congestion due to CHF. LFTs in the morning Hold atorvastatin If LFTs continue to trend up despite appropriate diuresis consider GI consult - Time Spent with Patient Total time spent is greater than 50% in coordination of care (as documented) at patient's floor/unit and/or counseling patient: Internal Medicine: Result - Labs CBC & Chem 7: 02/06/18 00:24 02/07/18 04:38 Labs: BMP 02/07/18 04:38 Sodium 133 L Potassium 4.0 Chloride 102 Carbon Dioxide 21 L BUN 44 H Creatinine 2.08 H Glucose 81 Calcium 8.4 L Liver Function 02/07/18 Range/Units 04:38 Total Bilirubin 2.0 H (0.3-1.0) mg/dL Direct Bilirubin 0.9 H (0.0-0.2) mg/dL AST 219 H (13-39) Units/L ALT 248 H (7-52) Units/L Alkaline Phosphatase 175 H (34-104) Units/L Albumin 3.0 L (3.5-5.7) g/dL - ABG Interpretation ABG results: PT/INR, D-dimer PT 50.3 Seconds (9.4-12.1) H* 02/07/18 04:38 Consult Discharge Plan - Plan Referrals: Gael Vigil DO [Partnered Physician] - 02/14/18 3:55 pm Tamiko Cortes MD [Primary Care Provider] - 02/23/18 9:45 am (2) Atrial fibrillation Qualifiers: Atrial fibrillation type: chronic Qualified Code(s): I48.2 - Chronic atrial fibrillation
[2018-02-07 17:42] LABS: Albumin/Globulin Ratio 1.4 (1.1-2.2); Bilirubin,Direct 0.9 mg/dL (0.0-0.2); Bilirubin,Indirect 1.1 mg/dL (0.0-1.2); Globulin 2.2 g/dL (2.4-3.5); Total Protein 5.2 g/dL (6.4-8.9)
[2018-02-07] MEDS: Melatonin 3 MG TABLET PO SCH (21:22)
[2018-02-08 05:16] LABS: Basophils # 0.1 K/mcL (0.0-0.2); Basophils % 0.9 %; Eosinophils % 0.3 %; Hematocrit 42.4 % (37.5-50.1); Hemoglobin 14.5 g/dL (12.9-16.9); Immature Granulocytes % 0.3 % (0-4); Lymphocytes # 0.6 K/mcL (0.6-4.6); Lymphocytes % 8.6 %; Mean Corpuscular HGB Conc 34.2 g/dL (31.6-35.5); Mean Corpuscular Hemoglobin 31.3 pg (28.0-33.3); Mean Corpuscular Volume 91.6 fL (83.0-100.0); Mean Platelet Volume 13.5 fL (9.4-12.4); Monocytes # 1.1 K/mcL (0.0-1.3); Monocytes % 14.1 %; Neutrophils # 5.7 K/mcL (1.6-8.9); Platelet Count 100 K/mcL (140-400); Red Blood Count 4.63 M/mcL (4.19-5.50); Red Cell Distribution Width 16.1 % (11.5-14.5); Segmented Neutrophils % 75.8 %
[2018-02-08 05:22] LABS: INR 3.1; Prothrombin Time 34.5 Seconds (9.4-12.1)
[2018-02-08 05:30] LABS: Albumin/Globulin Ratio 1.4 (1.1-2.2); Bilirubin,Direct 0.9 mg/dL (0.0-0.2); Bilirubin,Indirect 1.2 mg/dL (0.0-1.2); Bilirubin,Total 2.1 mg/dL (0.3-1.0); Globulin 2.1 g/dL (2.4-3.5); Total Protein 5.1 g/dL (6.4-8.9)
[2018-02-08 05:31] LABS: Calcium 8.4 mg/dL (8.6-10.3); Potassium 3.9 mEq/L (3.5-5.1)
[2018-02-08] MEDS: Multivit/Ca/Min/Fe/FA 1 TAB TABLET PO SCH (08:29)
[2018-02-08] MEDS: Furosemide 40 MG/4 ML VIAL IVP SCH ×2 (08:29→18:06)
[2018-02-08] MEDS: Finasteride 5 MG TABLET PO SCH (08:30)
--- NOTE | 2018-02-08 10:54 | Nephrology Progress Note ---
Addendum entered and electronically signed by Gael Vigil DO 02/12/18 13:36: I have personally performed a face to face evaluation on this patient. I have reviewed and agree with the care plan. History and Exam by me shows: I followed up and checked on him again: stable renal function. Continue diuretics, of which he appears to be tolerating. Original Note: Date of Encounter: 02/08/18 Time of Encounter: 10:10 - Assessment and Plan (1) DARWIN (acute kidney injury) Current Visit: No Status: Acute Kidney function improving-Scr 1.80 and GFR 36 UOP much better at 1150ml Avoid nephrotoxins if possible Continue Lasix BID for diuresis. Patient does have an appt scheduled for 02/14/[address] Vigil. (2) Nausea and vomiting Current Visit: No Status: Acute Per primary team Qualifiers: Vomiting type: unspecified Vomiting Intractability: non-intractable Qualified Code(s): R11.2 - Nausea with vomiting, unspecified (3) Congestive heart failure Current Visit: Yes Status: Acute 1.5 Liter fluid restriction Continue Lasix Daily weights. Strict I/O Qualifiers: Heart failure type: diastolic Heart failure chronicity: acute on chronic Qualified Code(s): I50.33 - Acute on chronic diastolic (congestive) heart failure Subjective Principal diagnosis: CHF Interval history: Patient seen and examined, states he is doing pretty well this morning. Objective - Vital Signs Vital signs: Vital Signs Temp Pulse Resp BP Pulse Ox 02/08/18 08:29 97.6 F 100 16 103/70 95 02/08/18 04:19 97.6 F 92 16 112/76 93 02/07/18 23:38 98.1 F 92 16 91/58 95 02/07/18 18:52 98.3 F 82 16 107/76 92 02/07/18 16:37 97.8 F 85 18 105/69 96 02/07/18 11:40 97.9 F 98 18 101/71 95 Intake and Output 02/07/18 02/08/18 02/08/18 23:59 07:59 15:59 Intake Total 500 / 500 300 / 300 Output Total 700 / 700 Balance -700 / -700 500 / 500 300 / 300 Intake: Oral 500 / 500 300 / 300 Output: Urine 700 / 700 Other: Meal Breakfast Percent of Meal Consumed 100% Weight 85.6 kg Patient Weight 02/08/18 23:59 Weight 85.6 kg - General Appearance General appearance: Present: well-developed, well-nourished EENT: Present: ATNC, mucous membranes moist, hearing intact, vision intact Neck: Present: supple Respiratory: Present: clear Cardiology: Present: edema (improving per patient), normal S1, normal S2 Gastrointestinal: Present: no tenderness, no guarding Integumentary: Present: warm and dry Neurologic: Present: alert and oriented x3 Psychiatric: Present: mood/affect appropriate, cooperative - Lab 02/08/18 04:33 02/08/18 04:33 Most recent lab results Calcium 8.4 mg/dL (8.6-10.3) L 02/08/18 04:33 Phosphorus 3.2 mg/dL (2.7-4.5) 02/07/18 04:38 Magnesium 2.4 mg/dL (1.6-2.6) 02/07/18 04:38 Urine Creatinine 40 mg/dL 02/05/18 15:40 Urine Sodium 46.6 mEq/L 02/05/18 15:40 Urine Total Protein 31 mg/dL (1-14) H 02/05/18 15:40 Consult Discharge Plan - Plan Referrals: Gael Vigil DO [Partnered Physician] - 02/14/18 3:55 pm Tamiko Cortes MD [Primary Care Provider] - 02/23/18 9:45 am
--- NOTE | 2018-02-08 10:55 | Internal Med Progress Note ---
Hospitalist Progress Note - Encounter Date of Encounter: 02/08/18 Time of Encounter: 10:24 - Subjective Interval History: Patient was seen and examined at bedside earlier this morning. Currently patient states his breathing has improved he continues to have lower extremity swelling however he states it has also improved. - Exam Vitals: Temp Pulse Resp BP Pulse Ox 97.6 F 100 16 103/70 95 02/08/18 08:29 02/08/18 08:29 02/08/18 08:29 02/08/18 08:29 02/08/18 08:29 Exam: General: Alert and oriented 3. Skin: Normal color, no rash, no lesions. HEENT: EOM, pupils equal, round and reactive. Hard hearing Cardiovascular: Irregularly, irregular, Normal S1 & S2, no rubs, murmurs or gallops. No hepato jugular reflex. Lungs: Clear source auscultation bilaterally, no wheezes or crackles. Abdomen: Soft, mildly no tenderness, no rigidity. NABS in all 4 quadrants Extremities: 2+ pitting edema. Neurological: Normal cognition and motor skills. - Assessment and Plan (1) DARWIN (acute kidney injury) Current Visit: No Status: Acute (2) Atrial fibrillation Current Visit: Yes Status: Chronic (3) History of heart valve replacement with porcine valve Current Visit: No Status: Acute (4) Elevated troponin Current Visit: Yes Status: Acute (5) Acute on chronic systolic CHF (congestive heart failure), NYHA class 3 Current Visit: Yes Status: Acute (6) Hyponatremia Current Visit: Yes Status: Acute (7) Supratherapeutic INR Current Visit: Yes Status: Acute (8) Elevated liver enzymes Current Visit: Yes Status: Acute - Time Spent with Patient Total time spent is greater than 50% in coordination of care (as documented) at patient's floor/unit and/or counseling patient: Internal Medicine: Result - Labs CBC & Chem 7: 02/08/18 04:33 02/08/18 04:33 Labs: Short CBC 02/08/18 Range/Units 04:33 WBC 7.5 (4.3-11.1) K/mcL Hgb 14.5 (12.9-16.9) g/dL Hct 42.4 (37.5-50.1) % Plt Count 100 L (140-400) K/mcL Neutrophils # 5.7 (1.6-8.9) K/mcL BMP 02/08/18 04:33 Sodium 134 L Potassium 3.9 Chloride 102 Carbon Dioxide 22 L BUN 42 H Creatinine 1.80 H Glucose 94 Calcium 8.4 L Liver Function 02/07/18 02/08/18 Range/Units 17:11 04:33 Total Bilirubin 2.0 H 2.1 H (0.3-1.0) mg/dL Direct Bilirubin 0.9 H 0.9 H (0.0-0.2) mg/dL AST 235 H 211 H (13-39) Units/L ALT 276 H 268 H (7-52) Units/L Alkaline Phosphatase 177 H 177 H (34-104) Units/L Albumin 3.0 L 3.0 L (3.5-5.7) g/dL - ABG Interpretation ABG results: PT/INR, D-dimer PT 34.5 Seconds (9.4-12.1) H 02/08/18 04:33 Consult Discharge Plan - Plan Referrals: Gael Vigil DO [Partnered Physician] - 02/14/18 3:55 pm Tamiko Cortes MD [Primary Care Provider] - 02/23/18 9:45 am (2) Atrial fibrillation Qualifiers: Atrial fibrillation type: chronic Qualified Code(s): I48.2 - Chronic atrial fibrillation
[2018-02-08] MEDS ORDERED: *HR* Warfarin 2.5 MG TABLET PO ONE (18:00)
[2018-02-08] MEDS: Melatonin 3 MG TABLET PO SCH (21:16)
[2018-02-09 04:59] LABS: Eosinophils % 0.1 %; Hematocrit 42.5 % (37.5-50.1); Hemoglobin 14.5 g/dL (12.9-16.9); Immature Granulocytes % 0.5 % (0-4); Mean Corpuscular HGB Conc 34.1 g/dL (31.6-35.5)
[2018-02-09 05:01] LABS: Basophils # 0.1 K/mcL (0.0-0.2); Basophils % 1.3 %; Lymphocytes # 0.6 K/mcL (0.6-4.6); Lymphocytes % 7.4 %; Mean Corpuscular Hemoglobin 31.3 pg (28.0-33.3); Mean Corpuscular Volume 91.6 fL (83.0-100.0); Mean Platelet Volume 13.4 fL (9.4-12.4); Monocytes % 12.3 %; Neutrophils # 6.3 K/mcL (1.6-8.9); Platelet Count 101 K/mcL (140-400); Red Blood Count 4.64 M/mcL (4.19-5.50); Red Cell Distribution Width 16.2 % (11.5-14.5); Segmented Neutrophils % 78.4 %
[2018-02-09 05:16] LABS: Prothrombin Time 22.4 Seconds (9.4-12.1)
[2018-02-09 05:17] LABS: Calcium 8.7 mg/dL (8.6-10.3); Potassium 3.8 mEq/L (3.5-5.1)
--- NOTE | 2018-02-09 06:40 | Event Note ---
Date of Encounter: 02/09/18 Time of Encounter: 06:38 Nephrology Chart Review With relatively stable renal function, I will sign-off at this point. No new recommendations. Thank you for having consulted the [facility] group. Please feel free to call if questions and/or re-consult if indicated.
[2018-02-09] MEDS: Multivit/Ca/Min/Fe/FA 1 TAB TABLET PO SCH (07:40)
[2018-02-09] MEDS: Furosemide 40 MG/4 ML VIAL IVP SCH ×2 (07:40→15:35)
[2018-02-09] MEDS: Finasteride 5 MG TABLET PO SCH ×2 (07:40→07:46)
[2018-02-09 09:25] LABS: Albumin/Globulin Ratio 1.3 (1.1-2.2); Bilirubin,Direct 1.2 mg/dL (0.0-0.2); Bilirubin,Indirect 1.7 mg/dL (0.0-1.2); Bilirubin,Total 2.9 mg/dL (0.3-1.0); Globulin 2.4 g/dL (2.4-3.5); Total Protein 5.4 g/dL (6.4-8.9)
--- NOTE | 2018-02-09 10:31 | Internal Med Progress Note ---
Hospitalist Progress Note - Encounter Date of Encounter: 02/09/18 Time of Encounter: 10:31 - Subjective Interval History: Patient was seen and examined at bedside earlier this morning. Currently patient states his breathing has improved he continues to have lower extremity swelling however he states it has also improved. Encouraged patient to ambulate - Exam Vitals: Temp Pulse Resp BP Pulse Ox 98.6 F 102 16 109/71 95 02/09/18 10:11 02/09/18 10:11 02/09/18 10:11 02/09/18 10:11 02/09/18 10:11 Exam: General: Alert and oriented 3. Skin: Normal color, no rash, no lesions. HEENT: EOM, pupils equal, round and reactive. Hard hearing Cardiovascular: Irregularly, irregular, Normal S1 & S2, no rubs, murmurs or gallops. No hepato jugular reflex. Lungs: Clear source auscultation bilaterally, no wheezes or crackles. Abdomen: Soft, mildly no tenderness, no rigidity. NABS in all 4 quadrants Extremities: 2+ pitting edema. Neurological: Normal cognition and motor skills. - Assessment and Plan (1) DARWIN (acute kidney injury) Current Visit: No Status: Acute Assessment and Plan: Most likely due to cardiorenal syndrome. Plan of care as above. Avoid nephrotoxic medication. Nephrology has been consulted, will follow recommendation. 02/08 Creatinine is improving 2.08 today GFR is 31 Continue with diuresis IV Lasix 40 mg twice a day Nephrology has been consulted-appreciate recommendations-can follow up as outpatient has an appointment 02/14/[address] Vigil Monitor intake and output daily weights Avoid nephrotoxi 02/09 Improving creatinine 1.84 today GFR is at baseline we will continue to monitor Continue with IV Lasix Monitor intake and output daily weights continue with fluid restriction Nephrology has been consulted and has signed off will follow up as outpatient Avoid nephrotoxins (2) Atrial fibrillation Current Visit: Yes Status: Chronic Assessment and Plan: Rate controlled on metoprolol. On warfarin due to high [id number] score. 02/08 Currently V paced-ray controlled continue with metoprolol Continue with warfarin-pharmacy to dose 02/09 Continue with metoprolol and warfarin (3) History of heart valve replacement with porcine valve Current Visit: No Status: Acute Assessment and Plan: Cardiology is consulted, appreciate recommendation 02/08 Cardiology consult to appreciate recommendation 02/09 Cardiology consult and signed off follow-up at [facility] in 1-2 weeks transition to by mouth diuretics prior to discharge (4) Elevated troponin Current Visit: Yes Status: Acute Assessment and Plan: Likely due to demand ischemia in the setting of acute CHF exacerbation. Cardiology consulted and recommended against any intervention. 02/08 Elevated troponin in setting of AK I MCTD and acute on chronic CHF no chest pain at this time Radiology has been consulted and suspect demand ischemia 02/09 Likely due to demand ischemia in the setting of CHF cardiology was consulted and recommended against any interventions no chest pain at this time (5) Acute on chronic systolic CHF (congestive heart failure), NYHA class 3 Current Visit: Yes Status: Acute Assessment and Plan: Chest is clear to auscultation bilaterally. 3+ edema in the lower extremity. Plan: To continue gentle IV diruresis with furosemide 40mg/IV BID strict intake and output water restriction to 1.5 litters a day. 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 Hyponatremia most likely due to CHF. 02/08 Sodium is improving most likely related to CHF exacerbation we will continue with diuretics and monitor closely. No neurological symptoms noted 02/09 Continues to improve continue with diuretics continue to monitor (7) Supratherapeutic INR Current Visit: Yes Status: Acute Assessment and Plan: INR 5.9. No signs of active bleeding. Hold today's dose of warfarin Repeat INR tomorrow morning. Course either vitamin K, if INR remains supratherapeutic. 02/08 INR is trending down continue to hold warfarinsigns of active bleeding noted Continue to monitor INR daily Vitamin K if INR remains supratherapeutic 02/09 INR at baseline continue with warfarin per pharmacy recommendations Continue to monitor INR daily (8) Elevated liver enzymes Current Visit: Yes Status: Acute Assessment and Plan: Likely secondary to hepatic congestion due to CHF. LFTs in the morning Hold atorvastatin If LFTs continue to trend up despite appropriate diuresis consider GI consult 02/09 Liver ultrasound completed . Status post cholecystectomy. Normal common bile duct. 2. Benign right renal and hepatic cysts. Continue to monitor LFTs no jaundice noted DVT Prophylaxis: Patient anticoagulated with warfarin. INR supratherapeutic. - Time Spent with Patient Total time spent is greater than 50% in coordination of care (as documented) at patient's floor/unit and/or counseling patient: Internal Medicine: Result - Labs CBC & Chem 7: 02/09/18 03:50 02/09/18 03:50 Labs: Short CBC 02/09/18 Range/Units 03:50 WBC 8.0 (4.3-11.1) K/mcL Hgb 14.5 (12.9-16.9) g/dL Hct 42.5 (37.5-50.1) % Plt Count 101 L (140-400) K/mcL Neutrophils # 6.3 (1.6-8.9) K/mcL BMP 02/09/18 03:50 Sodium 135 L Potassium 3.8 Chloride 102 Carbon Dioxide 24 BUN 41 H Creatinine 1.84 H Glucose 94 Calcium 8.7 Liver Function 02/09/18 Range/Units 08:56 Total Bilirubin 2.9 H (0.3-1.0) mg/dL Direct Bilirubin 1.2 H (0.0-0.2) mg/dL AST 158 H (13-39) Units/L ALT 244 H (7-52) Units/L Alkaline Phosphatase 181 H (34-104) Units/L Albumin 3.0 L (3.5-5.7) g/dL - ABG Interpretation ABG results: PT/INR, D-dimer PT 22.4 Seconds (9.4-12.1) H 02/09/18 03:50 - Impressions Impressions Liver Ultrasound 02/08/18 17:00 IMPRESSION: 1. Status post cholecystectomy. Normal common bile duct. 2. Benign right renal and hepatic cysts. D/ / 02/08/2018 18:29:22 Roxana Lowery MD / [place] Interpreting Provider: Roxana Lowery MD Consult Discharge Plan - Plan Referrals: Gael Vigil DO [Partnered Physician] - 02/14/18 3:55 pm Tamiko Cortes MD [Primary Care Provider] - 02/23/18 9:45 am (2) Atrial fibrillation Qualifiers: Atrial fibrillation type: chronic Qualified Code(s): I48.2 - Chronic atrial fibrillation
[2018-02-09] MEDS ORDERED: GuaiFENesin Liq 200 MG/10 ML UDC PO PRN (16:06)
[2018-02-09] MEDS ORDERED: *HR* Warfarin 2.5 MG TABLET PO ONE (18:00)
[2018-02-09] MEDS: Melatonin 3 MG TABLET PO SCH (22:08)
[2018-02-09] MEDS ORDERED: Hydrocortisone 1% OINT 28 GM TUBE TP PRN (22:16)
[2018-02-10 04:11] LABS: Eosinophils % 0.1 %; Immature Granulocytes % 0.5 % (0-4); Mean Corpuscular Volume 90.8 fL (83.0-100.0)
[2018-02-10 04:13] LABS: Basophils # 0.1 K/mcL (0.0-0.2); Basophils % 0.8 %; Hematocrit 42.3 % (37.5-50.1); Hemoglobin 14.2 g/dL (12.9-16.9); Immature Platelets 11.9 % (1.1-6.1); Lymphocytes # 0.5 K/mcL (0.6-4.6); Lymphocytes % 6.3 %; Mean Corpuscular HGB Conc 33.6 g/dL (31.6-35.5); Mean Corpuscular Hemoglobin 30.5 pg (28.0-33.3); Monocytes % 11.2 %; Red Blood Count 4.66 M/mcL (4.19-5.50); Red Cell Distribution Width 16.4 % (11.5-14.5); Segmented Neutrophils % 81.1 %
[2018-02-10 04:14] LABS: Platelet Count 87 K/mcL (140-400)
[2018-02-10 04:15] LABS: INR 1.9; Prothrombin Time 21.5 Seconds (9.4-12.1)
[2018-02-10 04:30] LABS: Albumin 2.8 g/dL (3.5-5.7); Albumin/Globulin Ratio 1.2 (1.1-2.2); Bilirubin,Direct 1.3 mg/dL (0.0-0.2); Bilirubin,Indirect 1.6 mg/dL (0.0-1.2); Bilirubin,Total 2.9 mg/dL (0.3-1.0); Globulin 2.3 g/dL (2.4-3.5); Total Protein 5.1 g/dL (6.4-8.9)
[2018-02-10 04:31] LABS: BUN/Creatinine Ratio 26 (6-26); Blood Urea Nitrogen 35 mg/dL (8-23); Calcium 8.3 mg/dL (8.6-10.3); Carbon Dioxide 24 mEq/L (23-29); Chloride 102 mEq/L (98-107); Glucose 94 mg/dL (70-105); Osmolality,Calculated 292 (280-300); Potassium 3.3 mEq/L (3.5-5.1); Sodium 137 mEq/L (136-145); eGFR For Non-African Americans 50 (> 60)
[2018-02-10] MEDS: Finasteride 5 MG TABLET PO SCH (08:08)
[2018-02-10] MEDS: Multivit/Ca/Min/Fe/FA 1 TAB TABLET PO SCH (08:08)
[2018-02-10] MEDS: Furosemide 40 MG/4 ML VIAL IVP SCH ×2 (08:08→16:47)
[2018-02-10 08:25] LABS: Magnesium 2.1 mg/dL (1.6-2.6)
--- NOTE | 2018-02-10 17:53 | Internal Med Progress Note ---
Hospitalist Progress Note - Encounter Date of Encounter: 02/10/18 Time of Encounter: 11:00 - Subjective Interval History: Patient was seen and examined at bedside earlier this morning. Sitting up in chair encouraged patient to elevate legs. Patient states he feels that his swelling has greatly improved continues to have some pitting edema to lower extr emity however it is improving. We will apply Anam bandages continue with Lasix - Exam Vitals: Temp Pulse Resp BP Pulse Ox 98.2 F 101 18 102/68 95 02/10/18 15:25 02/10/18 15:25 02/10/18 15:25 02/10/18 15:25 02/10/18 15:25 Exam: General: Alert and oriented 3. Skin: Normal color, no rash, no lesions. HEENT: EOM, pupils equal, round and reactive. Hard hearing Cardiovascular: Irregularly, irregular, Normal S1 & S2, no rubs, murmurs or gallops. No hepato jugular reflex. Lungs: Clear source auscultation bilaterally, no wheezes or crackles. Abdomen: Soft, mildly no tenderness, no rigidity. NABS in all 4 quadrants Extremities: 2+ pitting edema. Neurological: Normal cognition and motor skills. - Assessment and Plan (1) DARWIN (acute kidney injury) Current Visit: No Status: Acute Assessment and Plan: Most likely due to cardiorenal syndrome. Plan of care as above. Avoid nephrotoxic medication. Nephrology has been consulted, will follow recommendation. 02/08 Creatinine is improving 2.08 today GFR is 31 Continue with diuresis IV Lasix 40 mg twice a day Nephrology has been consulted-appreciate recommendations-can follow up as outpatient has an appointment 02/14/[address] Vigil Monitor intake and output daily weights Avoid nephrotoxi 02/09 Improving creatinine 1.84 today GFR is at baseline we will continue to monitor Continue with IV Lasix Monitor intake and output daily weights continue with fluid restriction Nephrology has been consulted and has signed off will follow up as outpatient Avoid nephrotoxins 02/10 Improving creatinine 1.36 Continue IV Lasix Advised patient to elevate legs Nephrology encouraging continue diuresis and to follow-up as outpatient Avoid nephrotoxins (2) Atrial fibrillation Current Visit: Yes Status: Chronic Assessment and Plan: Rate controlled on metoprolol. On warfarin due to high [id number] score. 02/08 Currently V paced-ray controlled continue with metoprolol Continue with warfarin-pharmacy to dose 02/09 Continue with metoprolol and warfarin 02/10 Continue with metoprolol we did have a decreased due to low blood pressure we will attempt to increase back to home monitor heart rate continue with warfarin (3) History of heart valve replacement with porcine valve Current Visit: No Status: Acute Assessment and Plan: Cardiology is consulted, appreciate recommendation 02/08 Cardiology consult to appreciate recommendation 02/09 Cardiology consult and signed off follow-up at [facility] in 1-2 weeks transition to by mouth diuretics prior to discharge 02/10 Cardiology consulted and signed off follow-up with [facility] in 1-2 weeks transition to lie diuretics orally prior to discharge (4) Elevated troponin Current Visit: Yes Status: Acute Assessment and Plan: Likely due to demand ischemia in the setting of acute CHF exacerbation. Cardiology consulted and recommended against any intervention. 02/08 Elevated troponin in setting of AK I MCTD and acute on chronic CHF no chest pain at this time Radiology has been consulted and suspect demand ischemia 02/09 Likely due to demand ischemia in the setting of CHF cardiology was consulted and recommended against any interventions no chest pain at this time 02/10 Secondary to ischemia in setting of CHF cardiology did evaluate the patient with no intervention at this time continue to monitor (5) Acute on chronic systolic CHF (congestive heart failure), NYHA class 3 Current Visit: Yes Status: Acute Assessment and Plan: Chest is clear to auscultation bilaterally. 3+ edema in the lower extremity. Plan: To continue gentle IV diruresis with furosemide 40mg/IV BID strict intake and output water restriction to 1.5 litters a day. 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 changer at the [facility] in 1-2 weeks Nephrology also consulted-appreciate recommendations ANAM has been held AK I we will continue with his beta jalyn 02/09 Patient lung sounds are clear at this time but actually swelling improving we will apply Anam bandages bilaterally continue with diuretics Continue with treatment plan outlined as above 02/10 An sounds are clear at this time swelling is improving continue with Anam b andages bilaterally continue with diuretics Continue with treatment plan outlined as above (6) Hyponatremia Current Visit: Yes Status: Acute Assessment and Plan: Sodium 132 today, no neurological symptoms. Hyponatremia most likely due to CHF. 02/08 Sodium is improving most likely related to CHF exacerbation we will continue with diuretics and monitor closely. No neurological symptoms noted 02/09 Continues to improve continue with diuretics continue to monitor 02/10 Resolved we will continue to monitor (7) Supratherapeutic INR Current Visit: Yes Status: Acute Assessment and Plan: INR 5.9. No signs of active bleeding. Hold today's dose of warfarin Repeat INR tomorrow morning. Course either vitamin K, if INR remains supratherapeutic. 02/08 INR is trending down continue to hold warfarinsigns of active bleeding noted Continue to monitor INR daily Vitamin K if INR remains supratherapeutic 02/09 INR at baseline continue with warfarin per pharmacy recommendations Continue to monitor INR daily 02/10 INR is at baseline continue with warfarin per pharmacy recommendations Daily INR (8) Elevated liver enzymes Current Visit: Yes Status: Acute Assessment and Plan: Likely secondary to hepatic congestion due to CHF. LFTs in the morning Hold atorvastatin If LFTs continue to trend up despite appropriate diuresis consider GI consult 02/09 Liver ultrasound completed . Status post cholecystectomy. Normal common bile duct. 2. Benign right renal and hepatic cysts. Continue to monitor LFTs no jaundice noted 02/10 Improving with continued to monitor no jaundice noted DVT Prophylaxis: Patient anticoagulated with warfarin. INR supratherapeutic. - Time Spent with Patient Total time spent is greater than 50% in coordination of care (as documented) at patient's floor/unit and/or counseling patient: Internal Medicine: Result - Labs CBC & Chem 7: 02/10/18 03:37 02/10/18 03:37 Labs: Short CBC 02/10/18 Range/Units 03:37 WBC 8.6 (4.3-11.1) K/mcL Hgb 14.2 (12.9-16.9) g/dL Hct 42.3 (37.5-50.1) % Plt Count 87 L (140-400) K/mcL Neutrophils # 7.0 (1.6-8.9) K/mcL BMP 02/10/18 03:37 Sodium 137 Potassium 3.3 L Chloride 102 Carbon Dioxide 24 BUN 35 H Creatinine 1.36 H Glucose 94 Calcium 8.3 L Liver Function 02/10/18 Range/Units 03:37 Total Bilirubin 2.9 H (0.3-1.0) mg/dL Direct Bilirubin 1.3 H (0.0-0.2) mg/dL AST 112 H (13-39) Units/L ALT 199 H (7-52) Units/L Alkaline Phosphatase 162 H (34-104) Units/L Albumin 2.8 L (3.5-5.7) g/dL - ABG Interpretation ABG results: PT/INR, D-dimer PT 21.5 Seconds (9.4-12.1) H 02/10/18 03:37 Consult Discharge Plan - Plan Referrals: Gael Vigil DO [Partnered Physician] - 02/14/18 3:55 pm Tamiko Cortes MD [Primary Care Provider] - 02/23/18 9:45 am (2) Atrial fibrillation Qualifiers: Atrial fibrillation type: chronic Qualified Code(s): I48.2 - Chronic atrial fibrillation
[2018-02-10] MEDS ORDERED: *HR* Warfarin 2.5 MG TABLET PO ONE (18:00)
[2018-02-10] MEDS: Melatonin 3 MG TABLET PO SCH (21:27)
[2018-02-11 04:00] LABS: Basophils # 0.1 K/mcL (0.0-0.2); Basophils % 0.7 %; Eosinophils % 0.2 %; Hematocrit 43.2 % (37.5-50.1); Hemoglobin 14.7 g/dL (12.9-16.9); Immature Granulocytes % 0.6 % (0-4); Lymphocytes # 0.5 K/mcL (0.6-4.6); Lymphocytes % 5.1 %; Mean Corpuscular Hemoglobin 30.9 pg (28.0-33.3); Mean Corpuscular Volume 90.8 fL (83.0-100.0); Mean Platelet Volume 12.9 fL (9.4-12.4); Monocytes % 10.7 %; Neutrophils # 7.8 K/mcL (1.6-8.9); Platelet Count 103 K/mcL (140-400); Red Blood Count 4.76 M/mcL (4.19-5.50); Red Cell Distribution Width 16.7 % (11.5-14.5); Segmented Neutrophils % 82.7 %
[2018-02-11 04:06] LABS: INR 1.7; Prothrombin Time 19.1 Seconds (9.4-12.1)
[2018-02-11 04:18] LABS: Alanine Aminotransferase 161 Units/L (7-52); Albumin/Globulin Ratio 1.3 (1.1-2.2); Alkaline Phosphatase 146 Units/L (34-104); Aspartate Amino Transferase 78 Units/L (13-39); BUN/Creatinine Ratio 26 (6-26); Bilirubin,Direct 0.9 mg/dL (0.0-0.2); Bilirubin,Indirect 1.8 mg/dL (0.0-1.2); Bilirubin,Total 2.7 mg/dL (0.3-1.0); Blood Urea Nitrogen 33 mg/dL (8-23); Calcium 8.4 mg/dL (8.6-10.3); Carbon Dioxide 23 mEq/L (23-29); Chloride 101 mEq/L (98-107); Globulin 2.3 g/dL (2.4-3.5); Glucose 113 mg/dL (70-105); Osmolality,Calculated 288 (280-300); Potassium 3.8 mEq/L (3.5-5.1); Sodium 135 mEq/L (136-145); Total Protein 5.3 g/dL (6.4-8.9); eGFR For Non-African Americans 53 (> 60)
[2018-02-11] MEDS ORDERED: Albumin 25% 12.5gm/50mL 12.5 GM/50 ML IV.SOLN IVPB SCH (08:55)
[2018-02-11] MEDS: Finasteride 5 MG TABLET PO SCH (09:15)
[2018-02-11] MEDS: Multivit/Ca/Min/Fe/FA 1 TAB TABLET PO SCH (09:16)
[2018-02-11] MEDS: Furosemide 40 MG/4 ML VIAL IVP SCH (11:10)
--- NOTE | 2018-02-11 15:04 | Discharge Summary ---
- NOTES TO OUTPATIENT PROVIDER Notes to Outpatient Provider: Patient presented with DARWIN CHF will need to follow up with nephrology he does have appointment on February 14 as well as cardiology which she states she has an appointment the first week in February and [facility] and primary care provider states he has appointment with PCP second week in February. He will follow-up Coumadin clinic this he presented with a supratherapeutic INR INR and discharge was 1.7. Patient was diuresed with Lasix we will resume his home diuretics advised him to monitor weight daily 1.5 L fluid restriction and low sodium diet. Encouraged patient to elevate lower extremities-LIN hose. Monitor blood pressure and keep a log. Monitor electrolytes. We will resume his home beta jalyn. He did have some elevated LFTs-likely secondary to CHF and have been trending down with diuresis closely monitor output Holding statin dt elevation. Ultrasound of the liver shows no obstruction Orders not resulted at time of discharge: Pending orders 02/12/18 04:00 CBC [Complete Blood Count] [HEME] AM 0400 Chem 7 [Basic Metabolic Panel] AM 0400 Hepatic Panel AM 0400 INR/PT [Prothrombin Time INR] [COAG] AM 0400 02/13/18 04:00 CBC [Complete Blood Count] [HEME] AM 0400 Chem 7 [Basic Metabolic Panel] AM 0400 Hepatic Panel AM 0400 Date of Encounter: 02/11/18 Time of Encounter: 14:45 - Discharge Diagnosis (1) DARWIN (acute kidney injury) Priority: Primary Status: Acute (2) Atrial fibrillation Priority: Secondary Status: Chronic Qualifiers: Atrial fibrillation type: chronic Qualified Code(s): I48.2 - Chronic atrial fibrillation (3) History of heart valve replacement with porcine valve Priority: Secondary Status: Acute (4) Elevated troponin Priority: Secondary Status: Acute (5) Acute on chronic systolic CHF (congestive heart failure), NYHA class 3 Priority: Primary Status: Acute (6) Hyponatremia Priority: Secondary Status: Acute (7) Supratherapeutic INR Priority: Secondary Status: Acute (8) Elevated liver enzymes Priority: Secondary Status: Acute Hospital course: Mr. Taylor is a 83 year old male past medical history of atrophic fibrillation congestive heart failure Biv ICD coronary disease hyperlipidemia hypertension osteoporosis heart valve replacement CK D patient presented to [facility] ED after experiencing difficulty breathing 3+ edema to lower extremities weight gain of approximately 10 pounds. Patient admits that he has been compliant with sodium restriction but reports that he drinks lots of "ice water" In the ER lab work did reveal a canine hypernatremia chest x-ray did show cardiomegaly with no acute findings or significant changes cardiac echo completed shows EF of 55% atypical septal motion consistent with postoperative status normal LV chamber size and wall thickness indeterminate diastolic function mild to moderately dilated RV with mild reduction in function severely dilated left atrium moderately dilated right atrium bioprosthetic aortic valve not well visualized. Cardiology was consulted-continued with diuresis fluid restrictions and salt restriction-nephrology was consult for DARWIN and continued diuresis.- Patient's history of present illness did improve as well as respiratory state. Lower extremities continue to be swollen we did give him some albumin as well as Lasix which did improve swelling. Will place LIN hose on legs and encouraged patient to keep legs elevated. He denied any chest pain-on admission patient's INR was supratherapeutic currently it is 1.7 we will continue with Coumadin and have patient follow up with Coumadin clinic on . Patient did have elevated LFTs most likely secondary to CHF they are trending down liver ultrasound with nothing acute we will monitor as outpatient. Patient does have appointment with nephrology on Monday we will check lab work prior to appointment. He also has appointment with cardiology first week of February and with his PCP second week of February. Advised patient to continue with fluid restriction 1.5 L daily low-sodium diet monitor weight daily monitor blood pressure and keep log. Patient will resume home medications. Currently he is hemodynamically stable and ready for discharge. Discharge discussed with: patient - Time Spent with Patient Total time spent providing and/or coordinating discharge services: - Discharge Medications Home Medications: Atorvastatin Calcium [Lipitor] 80 mg PO HS 01/15/17 [History] Finasteride [Proscar] 5 mg PO DAILY 01/15/17 [History] Metoprolol Tartrate [Lopressor] 25 mg PO BID 01/15/17 [History] Spironolactone [Aldactone] 25 mg PO BID 01/15/17 [History] Tamsulosin [Flomax] 0.4 mg PO DAILY 01/15/17 [History] Torsemide [Demadex] 20 mg PO DAILY 01/15/17 [History] Warfarin Sodium 1.25 mg PO TH 01/15/17 [History] Warfarin Sodium 2.5 mg PO [id number] 01/15/17 [History] Folic Acid/Multivit-Min/Lutein [[facility]vs Spectravite Adult Tab Chew] 1 tab PO DAILY 02/01/17 [History] Glucosamine/Chondroitin Sulf A [Cvs Glucosamine-Chondroit Chew] 1 tab PO BID 02/01/17 [History] Melatonin 10 mg PO HS 02/05/18 [History] Allergies/Adverse Reactions: Allergy/AdvReac Type Severity Reaction Status Date / Time Sulfa (Sulfonamide Allergy Rash Verified 02/05/18 11:59 Antibiotics) lisinopril AdvReac Cough Verified 02/05/18 11:59 Date of admission: 02/05/18 15:15 Primary care physician: Tamiko Cortes MD Consults: 02/05/18 11:47 Consult to Cardiology [CONS] Stat Comment: Consulting Provider: Cardiology Chrissie Reason for Consult: SOB Call Completed: Yes 02/05/18 11:48 Consult to Nephrology [CONS] Routine Consulting Provider: Kidney Chrissie/LANE/KALIE/DEBORAH Reason for Consult: DARWIN Call Completed: No Discharging clinician: Suzette Fu Anticipated date of discharge: 02/11/18 - Constitutional Vitals: Temp Pulse Resp BP Pulse Ox 97.8 F 101 16 111/78 98 02/11/18 11:33 02/11/18 11:33 02/11/18 11:33 02/11/18 11:33 02/11/18 11:33 General appearance: Present: A&O X 3 Exam: General: Alert and oriented 3. Skin: Normal color, no rash, no lesions. HEENT: EOM, pupils equal, round and reactive. Hard hearing Cardiovascular: Irregularly, irregular, Normal S1 & S2, no rubs, murmurs or gallops. No hepato jugular reflex. Lungs: Clear source auscultation bilaterally, no wheezes or crackles. Abdomen: Soft, mildly no tenderness, no rigidity. NABS in all 4 quadrants Extremities: 2+ pitting edema. Neurological: Normal cognition and motor skills. - Patient Status Disposition: Home, Self-Care Condition: Good Functional capacity at discharge: uses cane/walker Overall status at discharge: patient is back to baseline - Ambulatory Orders Ambulatory Orders: Basic Metabolic Panel [CHEM] Time Frame: 02/13/18, Facility: [facility], Location: [facility] - Discharge Instructions Follow Up With: Gael Vigil DO [Partnered Physician] - 02/14/18 3:55 pm Tamiko Cortes MD [Primary Care Provider] - 02/23/18 9:45 am - Diet and Activity Activity: increase activity as tolerated Diet: low salt diet
[2018-02-11 15:05] VITALS: BP 110/69
[2018-02-11] MEDS ORDERED: *HR* Warfarin 2.5 MG TABLET PO ONE (18:00)
== END 2018-02-11 04:15 | disposition home or self-care (01) | DRG 291 ==
LOC: EMEROOARM 09:17 → 3BNU 09:17
PROVIDERS: ADMIT Internal Medicine Nephrology; ATTEND Internal Medicine Nephrology

== ENCOUNTER 2018-02-13 16:10 | Observation (INO) ==
[2018-02-13] MEDS ORDERED: Aspirin 81 MG TAB.CHEW PO ONE (16:30)
--- NOTE | 2018-02-13 16:40 | Emergency Department Note ---
Disposition Clinical Impression: Lower extremity edema Heart failure Qualifiers: Heart failure type: unspecified Heart failure chronicity: unspecified Qualified Code(s): I50.9 - Heart failure, unspecified Chronic kidney disease Qualifiers: Chronic kidney disease stage: unspecified stage Qualified Code(s): N18.9 - Chronic kidney disease, unspecified DVT (deep venous thrombosis) Qualifiers: DVT location: upper extremity Affected thrombotic vein of extremity: brachial Chronicity: unspecified Laterality: left Qualified Code(s): I82.622 - Acute embolism and thrombosis of deep veins of left upper extremity Acute exacerbation of congestive heart failure Qualifiers: Heart failure type: unspecified Qualified Code(s): I50.9 - Heart failure, unspecified Disposition: Admitted As Inpatient Condition: Fair Referrals: Tamiko Cortes MD [Primary Care Provider] - Forms: ED Satisfaction Letter, Work/School Release General Adult HPI - General Chief complaint: ED General Medical Stated complaint: Swelling, JUAN MANUEL Time Seen by Provider: 02/13/18 16:12 Source: patient, EMS Mode of arrival: EMS Limitations: no limitations Nursing Notes Reviewed: Yes Vital Signs Reviewed: Yes - History of Present Illness HPI Narrative: 83-year-old male with a history of chronic kidney disease, heart failure, COPD presents for evaluation of lower leg swelling and dyspnea. Patient was seen in the ED yesterday concerns of left upper extremity swelling with a positive DVT. Patient is on Coumadin for his heart failure. Patient was noted be subtherapeutic and was given Lovenox as well as Coumadin. Patient noted worsening swelling of his lower extremities and some dyspnea. Notes dyspnea is worse with exertion. Patient denies any chest pain. Patient states is been getting progressively more swollen over the past few months. Denies any significant benefit change in diet. No nausea vomiting or diaphoresis. No abdominal pain. No fevers or cough. 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 Patient states that if he were to be admitted he would want to be transferred to his environmental engineering manager at the [facility]. Pain Scale: 0 - Related Data Home Medications Medication Instructions Recorded Confirmed Atorvastatin Calcium [Lipitor] 80 mg PO HS 01/15/17 02/05/18 Finasteride [Proscar] 5 mg PO DAILY 01/15/17 02/05/18 Metoprolol Tartrate [Lopressor] 25 mg PO BID 01/15/17 02/05/18 Spironolactone [Aldactone] 25 mg PO BID 01/15/17 02/05/18 Tamsulosin [Flomax] 0.4 mg PO DAILY 01/15/17 02/05/18 Torsemide [Demadex] 20 mg PO DAILY 01/15/17 02/05/18 Warfarin Sodium 1.25 mg PO TH 01/15/17 02/05/18 Warfarin Sodium 2.5 mg PO SUMOTUWEFRSA 01/15/17 02/05/18 Folic Acid/Multivit-Min/Lutein 1 tab PO DAILY 02/01/17 02/05/18 [[facility] Spectravite Adult Tab Chew] Glucosamine/Chondroitin Sulf A 1 tab PO BID 02/01/17 02/05/18 [[facility] Glucosamine-Chondroit Chew] Melatonin 10 mg PO HS 02/05/18 02/05/18 Previous Rx's Medication Instructions Recorded Enoxaparin [Lovenox] 80 mg SQ Q12HR 4 Days #8 syr 02/12/18 Allergies Allergy/AdvReac Type Severity Reaction Status Date / Time Sulfa (Sulfonamide Allergy Rash Verified 02/05/18 11:59 Antibiotics) lisinopril AdvReac Cough Verified 02/05/18 11:59 All systems ED: reviewed and negative except as stated. Constitutional: Denies: fever Cardiovascular: Denies: chest pain Respiratory: Reports: cough, dyspnea Gastrointestinal: Denies: abdominal pain, nausea, vomiting Past Medical History - Past Medical History Source: patient Medical history: Reports: atrial fibrillation, CHF, coronary artery disease, hyperlipidemia, hypertension, myocardial infarction, osteoporosis Surgical history: Reports: pacemaker/AICD Psychiatric history: Reports: no psych history - Social History Smoking Status: Former smoker Smokeless Tobacco Status: No Alcohol use: Reports: none Drug use: Reports: none Physical Exam - General Limitations: no limitations General appearance: alert, in no apparent distress - Head Head exam: atraumatic, normocephalic, normal inspection - Eye Eye exam: Present: normal appearance, PERRL, EOMI - ENT ENT exam: normal exam - Neck Neck exam: Present: normal inspection - Chest Chest inspection: Present: normal inspection - Respiratory Respiratory exam: Present: accessory muscle use, other (Diminished with left- sided rails). Absent: normal lung sounds bilaterally, respiratory distress - Cardiovascular Cardiovascular exam: Present: regular rate, normal rhythm, systolic murmur (4 out of 6) - Abdominal Exam Abdominal exam: Present: soft, Non-Tender - Extremities Exam Extremities exam: Present: normal inspection, pedal edema (4+ bilateral ), other (Also has some asymmetric cleft a pressure may swelling. Neurovascular intact) - Expanded Upper Extremity Exam Vascular exam: Normal: capillary refill, radial pulse - Back Exam Back exam: Present: normal inspection - Neurological Exam Neurological exam: Present: alert, CN II-XII intact - Skin Skin exam: Present: warm, dry, intact, normal color Course Course Narrative: Patient seen and examined. Patient will get medically screen. Patient will get basic cardiopulmonary evaluation with EKG, chest x-ray and labs. Patient's ultimate disposition is dependent on findings. Patient does have concerning findings of congestive heart failure.. Patient would like to be transferred where his environmental engineering manager is if admission were warranted. - Reevaluation(s) Reevaluation #1: Discussed with Vascular who states the patient has an upper L brachial thrombus. Patient's records reviewed show an extensive hospital course with recent discharge 2 days ago. Patient was hospitalized for heart failure and chronic kidney disease. Patient's echo does show concerns for a bioprosthetic valve however the patient states he has had no mechanical valve. Patient continues to want to be transferred worse environmental engineering manager is at [facility]. Time: 18:19 Reevaluation #2: Delay with lab results. Discussed with lab and awaiting. Patient is adamant about being transferred to the [facility] where he his environmental engineering manager Dr. Bose Time: 19:09 Reevaluation #3: Patient seen and examined. Patient is up-to-date on plan of care. Vital stable. Time: 20:22 Additional Reevaluation(s): 2114: Patient is accepted to the [facility] however [facility] states that there are no beds available and it possibly 1-2 days until their beds available. Recommend admission to the hospital here until bed available. Patient family at bedside agree with plan of care. Family again confirms that he has significantly decompensated and has a difficult time taking care at him home. States that he is generally weak and has difficulty performing activities of daily living. - Consultations Consultation #1: Discussed the case with Dr. Rutledge at the [facility] looks after the patient for transfer. Time: 20:08 Vital Signs Temperature 97.6 F 02/13/18 16:21 Pulse Rate 87 02/13/18 16:21 Respiratory Rate 22 02/13/18 16:21 Blood Pressure 92/71 02/13/18 16:21 O2 Sat by Pulse Oximetry 99 02/13/18 16:21 Temperature 97.6 F 02/13/18 16:21 Pulse Rate 96 02/13/18 20:59 Respiratory Rate 24 02/13/18 20:59 Blood Pressure 95/75 02/13/18 20:59 O2 Sat by Pulse Oximetry 96 02/13/18 20:59 Oxygen Delivery Oxygen Delivery Room Air Medical Decision Making - [facility] Narrative Medical decision making narrative: Patient presented for concerns of infarction a swelling as well as dyspnea. Patient clinically has signs of congestive heart failure. Patient appears to be in acute exacerbation. Patient does have significant lower extremity edema. Patient had baseline labs which show elevated troponin with no acute ischemic EKG changes. Appears the patient has had elevated troponin the past. Received an aspirin. Patient also has baseline chronic kidney disease. Patient's chest x-rays concerning for cardiomegaly with central vascular congestion. Patient does have dyspnea with exertion and 3-4 pillow orthopnea. Incidentally the mirian lucero also was noted to have a left upper extremity thrombus that was diagnosed recently. Patient is anechoic on Coumadin however is subtherapeutic. Patient did receive Lovenox earlier today as well as during the ED course here given his subtherapeutic dosage of his Coumadin in light of an upper ext DVT. Patient was offered admission here for his lower Marcel swelling and congestive heart failure however the patient declined. Patient states that he was evaluated by cardiology here and wants to be evaluated by his environmental engineering manager at the [facility]. Patient is stable and appropriate for transfer. Discussed with the [facility] who accepted the patient. However, the [facility] states that it will be 1-2 days until a bed available. Recommend admission until bed becomes available. Family is concerned that the patient has had decompensation in performing his activities of daily living. Patient is a fall risk with his generalized weakness on anticoagulation. Patient will need PT OT evaluation. - Medical Records Medical records reviewed: Yes I reviewed the patient's medical records. Jan 2018 Impressions: LVEF 55%. Atypical septal motion consistent with post-operative status. Indeterminate diastolic function. Mild to moderately dilated RV with mild reduction in function. Bi-atrial enlargement. Bioprosthetic aortic valve not well visualized. Doppler gradient not optimally obtained. No regurgitation. Bioprosthetic mitral valve not well visualized. Mild mitral regurgitation. No Doppler evidence for stenosis. Moderate tricuspid regurgitation. Mild pulmonic regurgitation. No pulmonary hypertension based on TR gradient obtained. May be underestimated. Dilated aortic root, 4.1 cm. - Lab Data Lab results reviewed: Yes I reviewed the patient's lab results. Result diagrams: 02/13/18 17:19 02/13/18 18:08 Lab Results 02/13/18 02/13/18 02/13/18 Range/Units 17:19 17:19 17:19 WBC 10.0 (4.3-11.1) K/mcL RBC 5.04 (4.19-5.50) M/mcL Hgb 15.7 (12.9-16.9) g/dL Hct 47.7 (37.5-50.1) % MCV 94.6 (83.0-100.0) fL MCH 31.2 (28.0-33.3) pg MCHC 32.9 (31.6-35.5) g/dL RDW 17.3 H (11.5-14.5) % Plt Count 130 L (140-400) K/mcL MPV 13.3 H (9.4-12.4) fL Immature Gran % 1.2 (0-4) % Seg Neutrophils % 84.0 % Lymphocytes % 4.5 % Monocytes % 9.2 % Eosinophils % 0.2 % Basophils % 0.9 % Neutrophils # 8.4 (1.6-8.9) K/mcL Lymphocytes # 0.5 L (0.6-4.6) K/mcL Monocytes # 0.9 (0.0-1.3) K/mcL Eosinophils # 0.0 (0.0-0.6) K/mcL Basophils # 0.1 (0.0-0.2) K/mcL Nucleated RBCs/100 WBC 0.2 H (0) /100 WBC PT 21.1 H (9.4-12.1) Seconds INR 1.9 APTT 41.9 H (26.0-36.0) Seconds Sodium Potassium Chloride Carbon Dioxide BUN Creatinine Est GFR ( Amer) Est GFR (Non-Af Amer) BUN/Creatinine Ratio Glucose Calculated Osmolality Calcium Troponin I (< 0.04) ng/mL B-Natriuretic Peptide 629 H (Less than 100) pg/mL Urine Color (Yellow) Urine Clarity (Clear) Urine pH (5.0-8.0) pH Units Ur Specific [place] (1.010-1.025) Urine Protein (Neg-Trace) mg/dL Urine Glucose (UA) (Normal) mg/dL Urine Ketones (Negative) mg/dL Urine Blood (Negative) Urine Nitrite (Negative) Urine Bilirubin (Negative) Urine Urobilinogen (Normal) mg/dL Ur Leukocyte Esterase (Negative) Urine Microscopic RBC (0-3) per hpf Urine Microscopic WBC (0-3) per hpf Ur Squamous Epith Cells (None-Few) per lpf Urine Bacteria (None-Few) per hpf Hyaline Casts (None-Few) per lpf Specimen Rejected 02/13/18 02/13/18 02/13/18 Range/Units 17:19 17:19 18:08 WBC (4.3-11.1) K/mcL RBC (4.19-5.50) M/mcL Hgb (12.9-16.9) g/dL Hct (37.5-50.1) % MCV (83.0-100.0) fL MCH (28.0-33.3) pg MCHC (31.6-35.5) g/dL RDW (11.5-14.5) % Plt Count (140-400) K/mcL MPV (9.4-12.4) fL Immature Gran % (0-4) % Seg Neutrophils % % Lymphocytes % % Monocytes % % Eosinophils % % Basophils % % Neutrophils # (1.6-8.9) K/mcL Lymphocytes # (0.6-4.6) K/mcL Monocytes # (0.0-1.3) K/mcL Eosinophils # (0.0-0.6) K/mcL Basophils # (0.0-0.2) K/mcL Nucleated RBCs/100 WBC (0) /100 WBC PT (9.4-12.1) Seconds INR APTT (26.0-36.0) Seconds Sodium Cancelled 133 L Potassium Cancelled 4.9 Chloride Cancelled 101 Carbon Dioxide Cancelled 21 L BUN Cancelled 35 H Creatinine Cancelled 1.33 H Est GFR ( Amer) Cancelled > 60 Est GFR (Non-Af Amer) Cancelled 51 L BUN/Creatinine Ratio Cancelled 26 Glucose Cancelled 110 H Calculated Osmolality Cancelled 285 Calcium Cancelled 8.5 L Troponin I 0.05 H* (< 0.04) ng/mL B-Natriuretic Peptide (Less than 100) pg/mL Urine Color (Yellow) Urine Clarity (Clear) Urine pH (5.0-8.0) pH Units Ur Specific [place] (1.010-1.025) Urine Protein (Neg-Trace) mg/dL Urine Glucose (UA) (Normal) mg/dL Urine Ketones (Negative) mg/dL Urine Blood (Negative) Urine Nitrite (Negative) Urine Bilirubin (Negative) Urine Urobilinogen (Normal) mg/dL Ur Leukocyte Esterase (Negative) Urine Microscopic RBC (0-3) per hpf Urine Microscopic WBC (0-3) per hpf Ur Squamous Epith Cells (None-Few) per lpf Urine Bacteria (None-Few) per hpf Hyaline Casts (None-Few) per lpf Specimen Rejected Hemolyzed 02/13/18 Range/Units 19:32 WBC (4.3-11.1) K/mcL RBC (4.19-5.50) M/mcL Hgb (12.9-16.9) g/dL Hct (37.5-50.1) % MCV (83.0-100.0) fL MCH (28.0-33.3) pg MCHC (31.6-35.5) g/dL RDW (11.5-14.5) % Plt Count (140-400) K/mcL MPV (9.4-12.4) fL Immature Gran % (0-4) % Seg Neutrophils % % Lymphocytes % % Monocytes % % Eosinophils % % Basophils % % Neutrophils # (1.6-8.9) K/mcL Lymphocytes # (0.6-4.6) K/mcL Monocytes # (0.0-1.3) K/mcL Eosinophils # (0.0-0.6) K/mcL Basophils # (0.0-0.2) K/mcL Nucleated RBCs/100 WBC (0) /100 WBC PT (9.4-12.1) Seconds INR APTT (26.0-36.0) Seconds Sodium Potassium Chloride Carbon Dioxide BUN Creatinine Est GFR ( Amer) Est GFR (Non-Af Amer) BUN/Creatinine Ratio Glucose Calculated Osmolality Calcium Troponin I (< 0.04) ng/mL B-Natriuretic Peptide (Less than 100) pg/mL Urine Color Dark Yellow (Yellow) Urine Clarity Cloudy A (Clear) Urine pH 5.5 (5.0-8.0) pH Units Ur Specific [place] 1.020 (1.010-1.025) Urine Protein Negative (Neg-Trace) mg/dL Urine Glucose (UA) Normal (Normal) mg/dL Urine Ketones Negative (Negative) mg/dL Urine Blood Negative (Negative) Urine Nitrite Negative (Negative) Urine Bilirubin Small H (Negative) Urine Urobilinogen Normal (Normal) mg/dL Ur Leukocyte Esterase Moderate H (Negative) Urine Microscopic RBC 0-3 (0-3) per hpf Urine Microscopic WBC 15-30 H (0-3) per hpf Ur Squamous Epith Cells Moderate H (None-Few) per lpf Urine Bacteria Few (None-Few) per hpf Hyaline Casts Moderate H (None-Few) per lpf Specimen Rejected - Radiology Data Radiology results reviewed: Yes I reviewed the patient's radiology results. Chest X-Ray 02/13/18 16:30 IMPRESSION: Stable mild cardiomegaly. Fluctuating right basilar atelectasis. D/ / Candido Mcmahan / Candido Mcmahan Interpreting Provider: Candido Mcmahan - EKG Data EKG #1 EKG attestation: Yes I reviewed and interpreted this EKG. EKG results narrative: Atrial ventricular paced rhythm at a rate of 85. No signs of [place] criteria. EKG shows normal: sinus rhythm Rate: normal Rhythm: NSR Bim/QRS: left axis deviation Interpretation: nonspecific ST-T wave changes S.B.A.REdita - S.B.A.REdita Situation: Demographics Background: Presenting Complaint Assessment: Vital Signs, Course and respsone to treatment, Patient/Family Expectation Recommendation: Barrier(s) to disposition, Recommendation based on pending studies, treatments, or consults S.B.A.REdita Report Given to: Dr. Mishel GaffneyAGarland Repor Time: 21:30 Attestation Statement - Attestation Attestation: I examined this patient and my medical decision-making was reviewed with the Resident Physician, I agree with the documented findings, disposition and treatment plan as described except to the extent set forth below. Pt is an 83 yo wm, hx CHF who was just recently DC'd from [facility] for Acute CHF exacerbation, [place]. Pt returned yest, diagnosed with a LUE DVT, and due ot subtherapeutic INR, started on xarelto. Pt returns tonight with worsening SOB, and LE edema. Pt on demedex at home. Pt denies any CP/press, no other assocd sxs. I agree with pt's PE findings as documented. EKG shows paced rhythm. Pt's CXR with central vasc damion Pt's trop chronically elevated and stable. Pt will be admitted for AECHF, LUE DVT, subtherapeutic INR. D/W hosp.
[2018-02-13 17:37] LABS: Basophils # 0.1 K/mcL (0.0-0.2); Basophils % 0.9 %; Eosinophils % 0.2 %; Hematocrit 47.7 % (37.5-50.1); Hemoglobin 15.7 g/dL (12.9-16.9); Immature Granulocytes % 1.2 % (0-4); Lymphocytes # 0.5 K/mcL (0.6-4.6); Lymphocytes % 4.5 %; Mean Corpuscular HGB Conc 32.9 g/dL (31.6-35.5); Mean Corpuscular Hemoglobin 31.2 pg (28.0-33.3); Mean Corpuscular Volume 94.6 fL (83.0-100.0); Mean Platelet Volume 13.3 fL (9.4-12.4); Monocytes # 0.9 K/mcL (0.0-1.3); Monocytes % 9.2 %; Neutrophils # 8.4 K/mcL (1.6-8.9); Nucleated Red Blood Cells 0.2 /100 WBC (0); Platelet Count 130 K/mcL (140-400); Red Blood Count 5.04 M/mcL (4.19-5.50); Red Cell Distribution Width 17.3 % (11.5-14.5)
[2018-02-13 17:46] LABS: INR 1.9; Prothrombin Time 21.1 Seconds (9.4-12.1)
[2018-02-13 17:48] LABS: Activated Partial Thrombo Time 41.9 Seconds (26.0-36.0)
[2018-02-13 19:10] LABS: BUN/Creatinine Ratio 26 (6-26); Blood Urea Nitrogen 35 mg/dL (8-23); Calcium 8.5 mg/dL (8.6-10.3); Carbon Dioxide 21 mEq/L (23-29); Chloride 101 mEq/L (98-107); Glucose 110 mg/dL (70-105); Osmolality,Calculated 285 (280-300); Potassium 4.9 mEq/L (3.5-5.1); Sodium 133 mEq/L (136-145); eGFR For Non-African Americans 51 (> 60)
[2018-02-13] MEDS ORDERED: Furosemide 40 MG/4 ML VIAL IVP ONE (19:20)
[2018-02-13 19:49] LABS: Bilirubin,Urine Small (Negative); Blood,Urine Negative (Negative); Clarity,Urine Cloudy (Clear); Color,Urine Dark Yellow (Yellow); Glucose,Urine (UA) Normal (Normal); Ketones,Urine Negative (Negative); Leukocyte Esterase,Urine Moderate (Negative); Nitrite,Urine Negative (Negative); PH,Urine 5.5 pH Units (5.0-8.0); Protein,Urine Negative (Neg-Trace); Urobilinogen,Urine Normal (Normal)
[2018-02-13 19:51] LABS: Bacteria,Urine Few per hpf (None-Few); RBC,Urine 0-3 per hpf (0-3); Squamous Epithelial Cell,Urine Moderate per lpf (None-Few); WBC,Urine 15-30 per hpf (0-3)
[2018-02-13] MEDS ORDERED: *HR* Enoxaparin 100 MG/ML SYRINGE SQ STA (20:02)
[2018-02-13 20:07] LABS: Hyaline Casts,Urine Moderate per lpf (None-Few)
[2018-02-14] MEDS ORDERED: Melatonin 3 MG TABLET PO ONE (03:21)
[2018-02-14] MEDS: Acetaminophen 325 MG TABLET PO PRN ×2 (03:45→11:01)
[2018-02-14] MEDS ORDERED: Naloxone 0.4 MG/ML INJ IVP PRN (05:05)
[2018-02-14 05:46] LABS: Hematocrit 45.6 % (37.5-50.1); Hemoglobin 15.4 g/dL (12.9-16.9); Immature Platelets 10.8 % (1.1-6.1); Mean Corpuscular HGB Conc 33.8 g/dL (31.6-35.5); Mean Corpuscular Hemoglobin 30.8 pg (28.0-33.3); Mean Corpuscular Volume 91.2 fL (83.0-100.0); Mean Platelet Volume 12.8 fL (9.4-12.4)
[2018-02-14 06:03] LABS: Calcium 8.3 mg/dL (8.6-10.3); Potassium 4.2 mEq/L (3.5-5.1)
[2018-02-14 06:04] LABS: INR 2.9; Prothrombin Time 32.8 Seconds (9.4-12.1)
[2018-02-14] MEDS ORDERED: 0.9 % Sodium Chloride 1,000 ML ONE (06:16)
--- NOTE | 2018-02-14 07:36 | Internal Med History&Physical ---
Date of Encounter: 02/14/18 Time of Encounter: 01:30 Internal Medicine - H&P: HPI Chief complaint: Lower extremity edema Admitted From: Emergency Dept Plans for Post Hospital Care: Home History of present illness: Mr. Taylor is a 83 year old male Patient presented to the emergency room with worsening lower extremity edema. He recently was diagnosed with a DVT in his left upper extremity the day prior as well. He was discharged from the hospital on 02/11/18 where he was treated for CHF exacerbation as well as lower extremity edema. His family indicated that he had worsening symptoms and swelling, thus they had him transported back to the hospital for further evaluation. In the ER on 02/12/18 he was diagnosed with left upper extremity DVT and was given lovenox to take at home. On the day of this admission his CBC was nearly within normal limits, aside from platelet count of 130 which is near normal for him. His INR was 1.9, he had elevated BUN/creatinine of 35/1.33. Troponin was 0.05, which is normal for him as well. BNP was not elevated from his previous admission at 629, whereas at his last admission it was 1307. UA was negative for blood and nitrites, with moderate leukocyte esterase. A chest x-ray was ordered and showed stable cardiomegaly, fluctuating right basilar atelectasis. Throughout his ER stay the patient continue to request being transferred to the [facility], where he receives most of his medical care. [facility] was called and the patient was accepted, however there are no available beds. They recommended that the patient stay here at the hospital until one opens up. I was called to the patient's room for decreased oxygen saturation after the patient had gotten up to use the bathroom. He does not use oxygen at home, and needed 3L nasal cannula to keep his saturation above 90%. He denied chest pain. He stated that the oxygen did help his breathing however. Patient also denied nausea, vomiting diarrhea and constipation. I ordered a stat chest x-ray and bedside O2 monitor and requested patient transfer to for closer monitoring. Patient did indicate that he needed to pee, however he did not have much urine output. He had about 100cc output despite lasix given in the ER. Pathak catheter was placed, which eventually revealed blood. Past Med Surg Social Fam HX - Past Medical History Medical history: atrial fibrillation, CHF, coronary artery disease, hyperlipidemia, hypertension, myocardial infarction, osteoporosis Psychiatric history: no psych history - Past Surgical History Surgical History: pacemaker/AICD Additional surgical history: mitral valve replacement - Social History Smoking Status: Former smoker Smokeless Tobacco Status: No Alcohol use: none Drug use: none - Family History Mother Hx Family Cardiac Disorders: Yes (CO at 51) Hx Family Cancer: Yes (leukemia) Father Living Status: Hx Family Neurologic Disorders: Yes (CVA) Internal Medicine - H&P: Meds Atorvastatin Calcium [Lipitor] 80 mg PO HS 01/15/17 [History] Finasteride [Proscar] 5 mg PO DAILY 01/15/17 [History] Metoprolol Tartrate [Lopressor] 25 mg PO BID 01/15/17 [History] Spironolactone [Aldactone] 25 mg PO BID 01/15/17 [History] Tamsulosin [Flomax] 0.4 mg PO DAILY 01/15/17 [History] Torsemide [Demadex] 20 mg PO DAILY 01/15/17 [History] Folic Acid/Multivit-Min/Lutein [[facility] Spectravite Adult Tab Chew] 1 tab PO DAILY 02/01/17 [History] Glucosamine/Chondroitin Sulf A [[facility]vs Glucosamine-Chondroit Chew] 1 tab PO BID 02/01/17 [History] Melatonin 10 mg PO HS 02/05/18 [History] Ipratropium [ATROVENT Inhaler] 2 puff IH QID PRN 02/13/18 [History] Warfarin Sodium 5 mg PO DAILY 02/13/18 [History] Allergy/AdvReac Type Severity Reaction Status Date / Time Sulfa (Sulfonamide Allergy Rash Verified 02/05/18 11:59 Antibiotics) lisinopril AdvReac Cough Verified 02/05/18 11:59 All Systems PM: A 10-system review of systems was performed and is negative for pertinent findings except as documented above in the HPI. - Constitutional Vitals: Temp Pulse Resp BP Pulse Ox 102 F H 92 34 81/55 94 02/14/18 05:08 02/14/18 06:45 02/14/18 05:08 02/14/18 06:45 02/14/18 06:45 General appearance: Present: cooperative, mild distress, A&O X 3, pleasant, answers questions appropriately Exam: As above - Head Head exam: Present: normal inspection - Eye Eye exam: Present: EOMI, normal appearance - Respiratory Respiratory exam: Present: rales, respiratory distress. Absent: chest wall tenderness, decreased breath sounds, wheezes - Cardiovascular Cardiovascular exam: Present: irregular rhythm, systolic murmur - GI/Abdominal GI/Abdominal exam: Present: normal bowel sounds, soft. Absent: tenderness - Extremities Exam Extremities exam: Present: pedal edema, tenderness, warm, radial pulses palpable and symmetrical Additional comments: 4+ pitting edema bilaterally in lower extremity. Left upper extremity tender to palpation, with erythema from forearm to shoulder. - Neurological Exam Neurological exam: Present: no focal deficits, strengths equal and symetr throughout. Absent: motor sensory deficit, facial droop, speech deficit - Skin Skin exam: Present: dry, erythema, warm Additional comments: Multiple bruises on arms and torso, with redness of left upper extremity as not ed above Internal Med - H&P Results - Labs CBC & Chem 7: 02/14/18 05:29 02/14/18 05:29 Labs: Short CBC 02/13/18 02/14/18 Range/Units 17:19 05:29 WBC 10.0 4.4 D (4.3-11.1) K/mcL Hgb 15.7 15.4 (12.9-16.9) g/dL Hct 47.7 45.6 (37.5-50.1) % Plt Count 130 L 79 L (140-400) K/mcL Neutrophils # 8.4 (1.6-8.9) K/mcL BMP 02/13/18 02/13/18 02/14/18 17:19 18:08 05:29 Sodium Cancelled 133 L 133 L Potassium Cancelled 4.9 4.2 Chloride Cancelled 101 102 Carbon Dioxide Cancelled 21 L 19 L BUN Cancelled 35 H 38 H Creatinine Cancelled 1.33 H 1.58 H Glucose Cancelled 110 H 78 Calcium Cancelled 8.5 L 8.3 L Cardiac Enzymes 02/13/18 02/14/18 Range/Units 17:19 05:29 Troponin I 0.05 H* 0.13 H* (< 0.04) ng/mL Urine 02/13/18 Range/Units 19:32 Urine Color Dark Yellow (Yellow) Urine Clarity Cloudy A (Clear) Urine pH 5.5 (5.0-8.0) pH Units Ur Specific [place] 1.020 (1.010-1.025) Urine Protein Negative (Neg-Trace) mg/dL Urine Glucose (UA) Normal (Normal) mg/dL - Impressions ITS Impressions Chest X-Ray 02/13/18 16:30 IMPRESSION: Stable mild cardiomegaly. Fluctuating right basilar atelectasis. D/ / Candido Mcmahan / Candido Mcmahan Interpreting Provider: Candido Mcmahan Chest X-Ray 02/14/18 01:20 IMPRESSION: No acute disease. D/ / Perez Cedeno MD / Perez Cedeno MD Interpreting Provider: Perez Cedeno MD Head CT 02/14/18 04:14 IMPRESSION: No acute intracranial abnormality. Right temporal occipital encephalomalacia. D/ / Perez Cedeno MD / Perez Cedeno MD Interpreting Provider: Perez Cedeno MD - Assessment and plan (1) Lower extremity edema Current Visit: Yes Status: Acute Assessment and plan: 4+ pitting edema bilaterally, with recent admission for same. Has been on lasix at home, but low urine output since coming to the floor. Pathak catheter was placed, with blood on return. Patient will likely need continued diuresis, monitoring kidney function and nephrology consultation. Continue lasix 40mg IV BID. (2) Sepsis Current Visit: Yes Status: Acute Assessment and plan: Patient does meet sepsis criteria for elevated temperature, respiratory rate, and heart rate. Lactic acid also elevated to 3.1 this morning. No clear infection source identified at this point, however. Tylenol given for fevers Oxygen supplementation as needed Follow up blood and urine cultures Continue antibiotics Critical care consultation Continue ICU monitoring. Qualifiers: Sepsis type: sepsis due to unspecified organism Qualified Code(s): A41.9 - Sepsis, unspecified organism (3) Acute respiratory failure with hypoxia Current Visit: Yes Status: Acute Assessment and plan: Patient's oxygen saturation initially was stable on room air upon arrival to the medical floor, however after patient had gotten up to go to the bathroom, he desaturated to the mid 70's. He required nasal cannula at 2-3 liters to maintain his saturation. He was transferred to for closer monitoring. He then later in the car framer became hypotensive, and required oxygen via non-rebreather which did improve his saturation. He at that point was transferred to the ICU for continued monitoring and possible application of IV pressers. Stat chest x- ray did not show worsened pulmonary status. Consider repeating chest x-ray Critical care consultation Continue oxygen supplementation (4) Hypotension Current Visit: Yes Status: Acute Assessment and plan: Patient's blood pressures acutely worsened during the car framer hours. He was started on 1L IV fluid bolus, and transferred to the ICU for closer monitoring. Considered possible sepsis, as patient has also had elevated temperature, heart rate and respiratory rate. Ordered urine and blood cultures and started the patient on vancomycin and zosyn. Critical care consultation, possible central line placement Follow up blood and urine culture Continue antibiotic therapy. Qualifiers: Hypotension type: unspecified hypotension type Qualified Code(s): I95.9 - Hypotension, unspecified (5) Subtherapeutic anticoagulation Current Visit: Yes Status: Acute Assessment and plan: Patient's INR was 1.9 in the ER, and he was given a dose of lovenox while there. Increased to 2.9 on recheck. He takes coumadin at home for atrial fibrillation, as well as artificial heart valves. He also was diagnosed with DVT of the left upper extremity. Patient has had blood in his urine now as well, as seen in pathak collection bag. Hold anticoagulation urology consultation Continue to monitor H&H Type and screen now (6) Hematuria Current Visit: Yes Status: Acute Assessment and plan: Patient on anticoagulation. Urology consultation Plan as above Qualifiers: Hematuria type: gross Qualified Code(s): R31.0 - Gross hematuria (7) Heart failure Current Visit: Yes Status: Acute Assessment and plan: Sees [facility] for cardiology care. Has 4+ pitting edema bilaterally in lower extremities. Cardiology consult Complete transfer to [facility] when bed available and patient is stable. Continue diuresis if kidney function stable. Qualifiers: Heart failure type: unspecified Heart failure chronicity: unspecified Qualified Code(s): I50.9 - Heart failure, unspecified (8) DARWIN (acute kidney injury) Current Visit: No Status: Acute Assessment and plan: Elevated BUN and creatinine from baseline. Did give patient nearly 1 liter of fluid despite history of CHF as he developed hypotension this morning. Continue to monitor Consider nephrology consultation Hold nephrotoxic medications. (9) Congestive heart failure Current Visit: No Status: Acute Assessment and plan: Patient accepted at [facility], but no bed available yet. BNP improved form previous visit however. Cardiology consultation Continue to monitor Qualifiers: Heart failure type: diastolic Heart failure chronicity: acute on chronic Qualified Code(s): I50.33 - Acute on chronic diastolic (congestive) heart failure (10) Deep venous thrombosis of upper extremity Current Visit: No Status: Acute Assessment and plan: Diagnosed 1 day ago, given prescription for lovenox to take at home. Patient developed hematuria during this repeat admission. Currently H&H is stable. Hold anticoagulation medications Monitor H&H Qualifiers: Affected thrombotic vein of extremity: unspecified vein of extremity Chronicity: acute Laterality: left Qualified Code(s): I82.622 - Acute embolism and thrombosis of deep veins of left upper extremity (11) Elevated troponin Current Visit: No Status: Acute Assessment and plan: Does have chronically elevated troponin, at baseline on admission. Did increase to 0.13 however this morning. Patient denies chest pain. Likely related to deman d ischemia. Repeat EKG Cardiology consultation Critical care consultation (12) S/P aortic valve and mitral valve replacement Current Visit: No Status: Acute Assessment and plan: On aniticoagulation as above, sees [facility] cardiology. Plan as above - Time Spent With Patient Total time spent is greater than 50% in coordination of care (as documented) at patient's floor/unit and/or counseling patient: Greater than 35 minutes
--- NOTE | 2018-02-14 07:55 | Pulmonology Consult Note ---
Addendum entered and electronically signed by Yael Jaime 02/14/18 17:20: Original Note: <Yael Jaime - Last Filed: 02/14/18 16:17> Time of Encounter: 07:54 Assessment and Plan (1) Septic shock Current Visit: Yes Status: Acute Elevated temp of 102, tachycardic in the 100s, tachypnic at 30 - started on Vanc and Zosyn BC and urine cx pending Lactic 3.1 1L NS ordered but not completely given due to the pts already fluid overloaded state Levophed running through central line at 30 mcg/min Vasopressin 0.04 mcg/min and albumin given TSH wnl and random cortisol >60 100mg hydrocortisone BPs remain 80s/50s Fluid bolus not given due to Hx of CHF and volume overloaded state Infection site could be left arm cellulitis vs UTI vs unknown site (2) Hypotension Current Visit: Yes Status: Acute BP 80s/50s on two pressors Plan as #1 above (3) Acute respiratory failure with hypoxia Current Visit: Yes Status: Acute Patient's oxygen saturation initially was stable on room air upon arrival to the medical floor, however after patient had gotten up to go to the bathroom, he desaturated to the mid 70's. He was transferred to for closer monitoring and placed on NRB and began s atting in the high 90s. Stat chest x-ray did not show worsened pulmonary status. Consider repeating chest x-ray Vasopressors started, Lasix ordered but pt now oliguric Continue oxygen supplementation - de-escalated to 10L O2 (4) Acute on chronic systolic CHF (congestive heart failure), NYHA class 3 Current Visit: Yes Status: Acute Pt has 4+ pitting edema of LE Hx of CHF with AICD Sees cardiology at [facility] - was admitted to [facility] and we will transfer him there once a bed is available BNP 629 upon admission Pt now hypoxic, tachycardic, tachypnic requiring vasopressors for BP control Cardio consulted Plan as #1 above (5) DARWIN (acute kidney injury) Current Visit: Yes Status: Acute Elevated creatinine of 1.58 from baseline of 1. 1L fluid bolus ordered and most given despite history of CHF as he developed hypotension this morning. Continue to monitor Nephrology consultated as pt is oliguric - likely cardiorenal syndrome Hold nephrotoxic medications. (6) Lower extremity edema Current Visit: Yes Status: Acute 4+ pitting edema of LE likely secondary to CHF exacerbation vs DVT Diuresis with lasix EPCDs for DVT prophylaxis INR is 2.9 (7) Elevated troponin Current Visit: Yes Status: Acute Initial trop 0.05 - pt is chronically elevated Repeat in ICU was 0.13 EKG done which showed tachycardia with a paced rhythm, and new ST segment depressions in leads V1-3 Cardiology consulted - they state this is likely secondary to DARWIN and hypotension (8) Deep venous thrombosis of upper extremity Current Visit: No Status: Acute Diagnosed 2 days ago Lovenox at home - repeat INR 2.9 Patient developed hematuria during this repeat admission. Currently H&H is stable. Hold anticoagulation medications Monitor CBC q6H 1300 - left arm swelling has increased and it is becoming darker in color. The skin is starting to crack and ooze. Pulses remain 1+ in the left radial artery. Doppler studies of the arm revealed weak pulses. Repeat CPK ordered returned as 171 at 1400. Vascular consulted - Dr. Hernandez saw the patient and verified that he has left arm swelling seconday to the blood clot. His arteries are patent via doppler. No surgical intervention necessary at this time. (9) Hematuria Current Visit: Yes Status: Acute Pt developed hematuria during this visit Urology consulted Retroperitoneal US showed normal appearing kidneys without hydronephrosis Pt is now oliguric as he has only produced 100mL urine overnight and now has no measurable urine in his bladder Consider nephro consult for oliguria (10) Atrial fibrillation Current Visit: No Status: Chronic Pt has AICD in place Taking Lovenox at home for DVT - hold due to hematuria INR 2.9 Home meds for rate control Currently tachycardic likely secondary to septic shock Cardio following (11) DVT prophylaxis Current Visit: No Status: Acute Pt therapeutic on Lovenox with INR 2.9 EPCDs placed and lovenox will be held due to elevated INR and hematuria History of Present Illness Consult date: 02/14/18 Requesting physician: Gael Florentino Reason for consult: dyspnea, other (low BP) Chief complaint: Lower extremity swelling History of present illness: Pt presented to the ED last night with worsening lower extremity swelling. He has a PMHx of CHF with AICD, CKD, and recent hx of DVT diagnosis 02/12 in the left upper extremity. He was admitted on 10/28 for a CHF exacerbation with lower extremity swelling. He is a patient of the [facility] and was initially accepted there but they currently have no beds. Since he was stable in the ED they were going to watch him until a bed opened and transport was arranged. He then began desatting into the 80s and was transported to for closer monitoring. He was placed on a NRB and his sats increased to the upper 90s. Early this morning his blood pressure began to drop and he was transported to the ICU. A central line was placed in the right IJ at 0745 to initiate Levophed and albumin to help with the pts low BP. NRB was de-escalated to 10L O2 and vasopressin was initiated. It is the patient's wishes that he be DNR-CCA as he does not wish to spend any time in a halfway or extended time in a hospital. He denies chest pain, abdominal pain, N/V/D, burning with urination, headache, changes in vision. He feels as though he has to urinate but cannot. He is also SOB and complains of arm pain and LE edema. Pt is DNR-CCA but is still willing to be intubated if necessary. Past Med Surg Social Fam HX - Past Medical History Medical history: atrial fibrillation, CHF, coronary artery disease, hyperlipidemia, hypertension, myocardial infarction, osteoporosis Psychiatric history: no psych history - Past Surgical History Surgical History: pacemaker/AICD Additional surgical history: mitral valve replacement - Social History Smoking Status: Former smoker Smokeless Tobacco Status: No Alcohol use: none Drug use: none - Family History Father Living Status: Hx Family Neurologic Disorders: Yes (CVA) Mother Hx Family Cardiac Disorders: Yes (MO at 51) Hx Family Cancer: Yes (leukemia) Medications and Allergies RX: Atorvastatin Calcium [Lipitor] 80 mg PO HS 01/15/17 [History] RX: Finasteride [Proscar] 5 mg PO DAILY 01/15/17 [History] RX: Metoprolol Tartrate [Lopressor] 25 mg PO BID 01/15/17 [History] RX: Spironolactone [Aldactone] 25 mg PO BID 01/15/17 [History] RX: Tamsulosin [Flomax] 0.4 mg PO DAILY 01/15/17 [History] RX: Torsemide [Demadex] 20 mg PO DAILY 01/15/17 [History] RX: Folic Acid/Multivit-Min/Lutein [[facility]vs Spectravite Adult Tab Chew] 1 tab PO DAILY 02/01/17 [History] RX: Glucosamine/Chondroitin Sulf A [Cvs Glucosamine-Chondroit Chew] 1 tab PO BID 02/01/17 [History] RX: Melatonin 10 mg PO HS 02/05/18 [History] RX: Ipratropium [ATROVENT Inhaler] 2 puff IH QID PRN 02/13/18 [History] Warfarin Sodium 5 mg PO DAILY 02/13/18 [History] Allergy/AdvReac Type Severity Reaction Status Date / Time Sulfa (Sulfonamide Allergy Rash Verified 02/05/18 11:59 Antibiotics) lisinopril AdvReac Cough Verified 02/05/18 11:59 All Systems: The remainder of the systems were reviewed and are negative - Constitutional Constitutional: as per HPI - Cardiovascular Cardiovascular: dyspnea, dyspnea on exertion, edema, no chest pain - Respiratory Respiratory: dyspnea, no cough, no wheezing - Gastrointestinal Gastrointestinal: no abdominal pain - Genitourinary Genitourinary: hematuria - Integumentary Integumentary: no erythema, no jaundice Physical Examination Vital Signs: Vital Signs, Last 4 Hours Temp Pulse Resp BP Pulse Ox 02/14/18 06:45 92 81/55 94 02/14/18 06:25 85 72/44 02/14/18 06:15 83 65/42 02/14/18 05:08 102 F H 102 34 94/53 94 General appearance: agitated, appears uncomfortable Eyes: nonicteric ENT: oropharynx moist Neck: JVD (to angle of jaw) Effort: very labored Inspection: normal Auscultation: bilateral: clear, diminished breath sounds Cardiovascular: murmur noted, other (tachycardic ) Gastrointestinal: soft, non-tender, non-distended Integumentary: normal Extremities: no cyanosis, pulses normal, edema (4+ pitting edema to tibial tuberosity) Musculoskeletal: no deformities normal mental status, non-focal exam, pupils equal and round, CN II-XII normal anxious Results - Laboratory Findings CBC and BMP: 02/14/18 15:15 02/14/18 15:15 PT/INR, D-dimer PT 32.8 Seconds (9.4-12.1) H D 02/14/18 05:29 Abnormal lab findings: Abnormal lab results RDW 17.0 % (11.5-14.5) H 02/14/18 05:29 Plt Count 79 K/mcL (140-400) L 02/14/18 05:29 MPV 12.8 fL (9.4-12.4) H 02/14/18 05:29 Lymphocytes # 0.5 K/mcL (0.6-4.6) L 02/13/18 17:19 Nucleated RBCs/100 WBC 0.2 /100 WBC (0) H 02/13/18 17:19 Immature Plt Fraction 10.8 % (1.1-6.1) H 02/14/18 05:29 PT 32.8 Seconds (9.4-12.1) H D 02/14/18 05:29 APTT 41.9 Seconds (26.0-36.0) H 02/13/18 17:19 Sodium 133 mEq/L (136-145) L 02/14/18 05:29 Carbon Dioxide 19 mEq/L (23-29) L 02/14/18 05:29 BUN 38 mg/dL (8-23) H 02/14/18 05:29 Creatinine 1.58 mg/dL (0.70-1.30) H 02/14/18 05:29 Est GFR ( Amer) 51 (> 60) L 02/14/18 05:29 Est GFR (Non-Af Amer) 42 (> 60) L 02/14/18 05:29 Lactic Acid 3.1 mmol/L (0.5-2.2) H 02/14/18 05:30 Calcium 8.3 mg/dL (8.6-10.3) L 02/14/18 05:29 Troponin I 0.13 ng/mL (< 0.04) H* 02/14/18 05:29 B-Natriuretic Peptide 629 pg/mL (Less than 100) H 02/13/18 17:19 Urine Clarity Cloudy (Clear) A 02/13/18 19:32 Urine Bilirubin Small (Negative) H 02/13/18 19:32 Ur Leukocyte Esterase Moderate (Negative) H 02/13/18 19:32 Urine Microscopic WBC 15-30 per hpf (0-3) H 02/13/18 19:32 Ur Squamous Epith Cells Moderate per lpf (None-Few) H 02/13/18 19:32 Hyaline Casts Moderate per lpf (None-Few) H 02/13/18 19:32 - Microbiology Findings Microbiology Findings: Microbiology, Last 48 Hours 02/14/18 05:20 Blood Culture - Preliminary Peripheral Venipuncture Culture is incubating and being continuously monitored for growth. Final report to follow. 02/14/18 05:29 Blood Culture - Preliminary Peripheral Venipuncture Culture is incubating and being continuously monitored for growth. Final report to follow. - Clinical Findings Intake & Output: Intake & Output 02/13/18 02/13/18 02/14/18 15:59 23:59 07:59 Intake Total 0 / 0 360 / 360 Output Total 0 / 0 550 / 550 Balance 0 / 0 -190 / -190 Weight 85.185 kg 85.1 kg Consult Discharge Plan - Plan Referrals: Tamiko Cortes MD [Primary Care Provider] - Sepsis Reassessment Note - Evaluation Sepsis Screen: Sepsis Risk Current Stage of Sepsis: septic shock Possible Source of Sepsis: skin/soft tissue - Focused Exam Date of Encounter: 02/14/18 Time of Encounter: 10:00 Vital Signs: Vital Signs Temp Pulse Resp BP Pulse Ox 02/14/18 08:00 97 02/14/18 06:45 92 81/55 94 02/14/18 06:25 85 72/44 02/14/18 06:15 83 65/42 02/14/18 05:08 102 F H 102 34 94/53 94 02/14/18 03:45 103 97/56 02/14/18 03:35 102.6 F H 02/14/18 02:58 101.2 F H 114 32 127/75 91 02/14/18 02:41 99.5 F 110 20 141/70 96 02/13/18 22:17 97.6 F 71 16 95/65 95 Respiratory Exam: Present: respiratory distress, decreased breath sounds, distant breath sounds Cardiovascular Exam: Present: tachycardia, murmur (Hx of aortic and mitral valve replacement) Capillary Refill: < 2 seconds Peripheral Pulse Strength: 1+ faint Peripheral Pulse Location: Radial (right wrist) Skin Exam: pink <Fouladpour,Fer W - Last Filed: 02/14/18 16:51> Date of Encounter: 02/14/18 All Systems: The remainder of the systems were reviewed and are negative Physical Examination Vital Signs: Vital Signs, Last 4 Hours Pulse BP Pulse Ox 02/14/18 08:00 97 02/14/18 06:45 92 81/55 94 02/14/18 06:25 85 72/44 02/14/18 06:15 83 65/42 Results - Laboratory Findings CBC and BMP: 02/14/18 15:15 02/14/18 15:15 ABG ABG pH 7.47 pH Units (7.32-7.45) H 02/14/18 09:13 ABG pCO2 25 mmHg (35-45) L 02/14/18 09:13 ABG pO2 190 mmHg (85-104) H D 02/14/18 09:13 ABG O2 Saturation 100 % (95-98) H 02/14/18 09:13 PT/INR, D-dimer PT 32.8 Seconds (9.4-12.1) H D 02/14/18 05:29 Abnormal lab findings: Abnormal lab results RDW 17.0 % (11.5-14.5) H 02/14/18 05:29 Plt Count 79 K/mcL (140-400) L 02/14/18 05:29 MPV 12.8 fL (9.4-12.4) H 02/14/18 05:29 Lymphocytes # 0.5 K/mcL (0.6-4.6) L 02/13/18 17:19 Nucleated RBCs/100 WBC 0.2 /100 WBC (0) H 02/13/18 17:19 Immature Plt Fraction 10.8 % (1.1-6.1) H 02/14/18 05:29 PT 32.8 Seconds (9.4-12.1) H D 02/14/18 05:29 APTT 41.9 Seconds (26.0-36.0) H 02/13/18 17:19 ABG pH 7.47 pH Units (7.32-7.45) H 02/14/18 09:13 ABG pCO2 25 mmHg (35-45) L 02/14/18 09:13 ABG pO2 190 mmHg (85-104) H D 02/14/18 09:13 ABG HCO3 18 mEq/L (21-27) L 02/14/18 09:13 ABG Total CO2 19 mEq/L (20-26) L 02/14/18 09:13 ABG O2 Saturation 100 % (95-98) H 02/14/18 09:13 ABG Base Excess -3 mEq/L (-2 to 3) L 02/14/18 09:13 Sodium 133 mEq/L (136-145) L 02/14/18 05:29 Carbon Dioxide 19 mEq/L (23-29) L 02/14/18 05:29 BUN 38 mg/dL (8-23) H 02/14/18 05:29 Creatinine 1.58 mg/dL (0.70-1.30) H 02/14/18 05:29 Est GFR ( Amer) 51 (> 60) L 02/14/18 05:29 Est GFR (Non-Af Amer) 42 (> 60) L 02/14/18 05:29 Lactic Acid 3.1 mmol/L (0.5-2.2) H 02/14/18 05:30 Calcium 8.3 mg/dL (8.6-10.3) L 02/14/18 05:29 Troponin I 0.13 ng/mL (< 0.04) H* 02/14/18 05:29 B-Natriuretic Peptide 629 pg/mL (Less than 100) H 02/13/18 17:19 Urine Clarity Cloudy (Clear) A 02/13/18 19:32 Urine Bilirubin Small (Negative) H 02/13/18 19:32 Ur Leukocyte Esterase Moderate (Negative) H 02/13/18 19:32 Urine Microscopic WBC 15-30 per hpf (0-3) H 02/13/18 19:32 Ur Squamous Epith Cells Moderate per lpf (None-Few) H 02/13/18 19:32 Hyaline Casts Moderate per lpf (None-Few) H 02/13/18 19:32 - Microbiology Findings Microbiology Findings: Microbiology, Last 48 Hours 02/14/18 05:20 Blood Culture - Preliminary Peripheral Venipuncture Culture is incubating and being continuously monitored for growth. Final report to follow. 02/14/18 05:29 Blood Culture - Preliminary Peripheral Venipuncture Culture is incubating and being continuously monitored for growth. Final report to follow. - Clinical Findings Intake & Output: Intake & Output 02/13/18 02/14/18 02/14/18 23:59 07:59 15:59 Intake Total 0 / 0 360 / 360 800 / 800 Output Total 0 / 0 550 / 550 Balance 0 / 0 -190 / -190 800 / 800 Weight 85.185 kg 85.1 kg - Attending Attestation I examined this patient and my medical decision-making was reviewed with the Resident Physician. I agree with the documented findings, disposition and treatment plan as described except to the extent set forth below. We independently had [id number] contact with the patient I spent 45min of Critical Care time with this patient. It involved decision making of high complexity to assess, manipulate, and support vital organ system failure and/or to prevent further life threatening deterioration of the patient's condition. The time involved in the performance of separately reportable procedures was not counted toward critical care time. Patient seen and examined at bedside Labs, radiology, chart personally reviewed. Management was reviewed during multidisciplinary critical care rounds. HORSE TRADER: The patient is awake and alert he is able to follow commands he has moments of lethargy and suspected mild encephalopathy but no gross focal deficits Pulm: Acute hypoxic respiratory failure stable oxygenation at present with reassuring blood gas can use noninvasive ventilation as needed high risk for deterioration requiring intubation Cards: Patient has evidence of shock which is likely a combination of distributive (Sepsis) and cardiogenic. Long-standing diagnosis of heart failure with reduced ejection fraction clinically clearly volume overloaded starting vasopressor support as I do not think she will benefit from continued to IV nba talloid and colloid bolus for this. He was given a half a liter of saline and 250 mL of 5% albumin without improvement. There may be a component of adrenal insufficiency. He is currently on 2 vasopressors and because of concern for septic shock I have added stress dose hydrocortisone He has a history of a chronic A. fib and mitral and atrial valve replacement (bioprosthetic) on long- term anticoagulation. Continue to trend lactate which is modestly elevated GI: Continue to monitor Nutrition: Nothing by mouth for now Renal: Mild acute on chronic renal insufficiency gross hematuria suspected urinary tract infection urology has been consulted and will also get a formal retroperitoneal ultrasound to evaluate for hydronephrosis. UOP Monitored, Cont to Trend sCr and monitor Electrolytes. ID: There is evidence of a urinary tract infection and patient has been persistently febrile; lactate is modestly elevated CONCERNING for sepsis with sh ock he is on broad-spectrum antibiotics with plans de-escalate based upon culture and sensitivities Heme/Onc: Gross hematuria INR elevarted (likely from use of Lovenox for acute UE DVT) H/H and Plts stable will need close monitoring of this Endo: Glucose Monitored check random cortisol prior to starting HydrocortisoneI suspect a component of adrenal insufficiency Integ/MSK: Skin Care per routine ICU Nursing Protocol to prevent ulcers. I examined his left arm which is notable for diffuse erythema it is swollen there is pulses palpable which are 1+ CPK level was checked and was normal we will continue to monitor this closely as patient has high risk of developing compartment syndrome may need to consult orthopedic surgery Lines: All lines examined without evidence of infection : Dispo: Plan to transfer the patient to [facility] at patient's request where he follows with the cardiology service there. I did speak with transfer center and his been accepted to their ICU pending bed availability can understand that this is risky transfer and the possibility of further decline including and during transport and remain adamant about transport CODE: I had extensive conversation with the patient and his regarding their goals of care and they both expressed that their wishes were that he does not want to be in a halfway at any point and he would be okay with intubation in the short-term but we talked about possibility of CPR and I explained that to the post-CPR and his current condition I would anticipate likely long-term admission to halfway facility at best if he were to survive and he clearly delineated that he did not want to pursue this and so I have made his CODE STATUS DNAR with Intubation accordingly.
[2018-02-14] MEDS: Norepinephrine 4 MG in D5% in Water 250 ML IVC SCH ×3 (08:09→13:00)
[2018-02-14] MEDS: Piperacillin/Tazobactam 3.375 GM in 0.9 % Sodium Chloride Mini Bag 100 ML IVPB SCH ×3 (08:50→23:22)
[2018-02-14 09:09] LABS: ABG Base Excess -3 mEq/L (-2 to 3); ABG HCO3 21 mEq/L (21-27); ABG Oxygen Saturation 70 % (95-98); ABG PCO2 34 mmHg (35-45); ABG PH 7.39 pH Units (7.32-7.45); ABG PO2 37 mmHg (85-104); ABG TCO2 22 mEq/L (20-26)
[2018-02-14 09:17] LABS: ABG Base Excess -3 mEq/L (-2 to 3); ABG HCO3 18 mEq/L (21-27); ABG Oxygen Saturation 100 % (95-98); ABG PCO2 25 mmHg (35-45); ABG PH 7.47 pH Units (7.32-7.45); ABG PO2 190 mmHg (85-104); ABG TCO2 19 mEq/L (20-26)
[2018-02-14] MEDS ORDERED: Hydrocortisone Sodium Succ 100 MG/2 ML VIAL IVP ONE (09:22)
--- NOTE | 2018-02-14 09:35 | Urology - Consult Note ---
Addendum entered and electronically signed by Woo Shea MD 02/14/18 15:46: Patient was seen and examined with the physician's assistant front end manager. He has an 83-year-old gentleman who returns with a CHF exacerbation. He has an indwelling catheter and has scant urine output. His urine output is somewhat bloody. The nurses report being able to hand irrigate the catheter. The catheter appears in good position. I would have the nurses continue to hand irrigate as necessary. Urology will follow along, but at this point he is not a very good surgical candidate. Hopefully, with conservative measures the hematuria will begin to resolve. This gentleman is critically ill and efforts are being made to seek out transfer to tertiary care center. Urology will follow along. Original Note: Date of Encounter: 02/14/18 Time of Encounter: 09:10 - Assessment and Plan (1) Hematuria Current Visit: Yes Status: Acute Assessment and plan: Patient is an 83-year-old male who presents the history of gross hematuria following catheter placement. Patient has multiple comorbidities with worsening status. Pulmonology does not recommend continuous bladder irrigation. Nurse was able to hand irrigate catheter at bedside with minimal urine clearance. Urology will continue to follow and monitor catheter until transfer. Hand irrigation order placed. Qualifiers: Hematuria type: gross Qualified Code(s): R31.0 - Gross hematuria Urology CN:HPI Consult date: 02/14/18 Reason for consult Urology: Gross Hematuria History of present illness: Patient is an 83-year-old male who presents with a history of gross hematuria following catheter placement. Patient was discharged from the hospital on 02/11/18 after being treated for CHF exacerbation. Patient was also diagnosed with left upper extremity DVT for which he has been treated with both Lovenox and Coumadin. Patient represented to the emergency department last night for worsening lower leg edema, dyspnea, and was initially admitted to 2A. Patient was transferred to ICU secondary to respiratory distress. Patient was reported to have 100 mL of urinary output overnight, and his bladder scan is negative for urine volume. Catheter appears to be appropriately placed. Patient's renal function has acutely worsened overnight as well as his respiratory status, and he is febrile and hypotensive. Patient is being prepared for transfer to [facility] where his gamma operator is located. Past Med Surg Social Fam HX - Past Medical History Medical history: atrial fibrillation, CHF, coronary artery disease, hyperli pidemia, hypertension, myocardial infarction, osteoporosis Psychiatric history: no psych history - Past Surgical History Surgical History: pacemaker/AICD Additional surgical history: mitral valve replacement - Social History Smoking Status: Former smoker Smokeless Tobacco Status: No Alcohol use: none Drug use: none - Family History Mother Hx Family Cardiac Disorders: Yes ([place] at 51) Hx Family Cancer: Yes (leukemia) Father Living Status: Hx Family Neurologic Disorders: Yes (CVA) Medications and Allergies Atorvastatin Calcium [Lipitor] 80 mg PO HS 01/15/17 [History] Finasteride [Proscar] 5 mg PO DAILY 01/15/17 [History] Metoprolol Tartrate [Lopressor] 25 mg PO BID 01/15/17 [History] Spironolactone [Aldactone] 25 mg PO BID 01/15/17 [History] Tamsulosin [Flomax] 0.4 mg PO DAILY 01/15/17 [History] Torsemide [Demadex] 20 mg PO DAILY 01/15/17 [History] Folic Acid/Multivit-Min/Lutein [Cvs Spectravite Adult Tab Chew] 1 tab PO DAILY 02/01/17 [History] Glucosamine/Chondroitin Sulf A [Cvs Glucosamine-Chondroit Chew] 1 tab PO BID 02/01/17 [History] Melatonin 10 mg PO HS 02/05/18 [History] Ipratropium [ATROVENT Inhaler] 2 puff IH QID PRN 02/13/18 [History] Warfarin Sodium 5 mg PO DAILY 02/13/18 [History] Allergy/AdvReac Type Severity Reaction Status Date / Time Sulfa (Sulfonamide Allergy Rash Verified 02/05/18 11:59 Antibiotics) lisinopril AdvReac Cough Verified 02/05/18 11:59 Review of Systems ROS unobtainable: due to mental status Exam Initial Vital Signs Temp Pulse Resp BP Pulse Ox 97.6 F 87 22 92/71 99 02/13/18 16:21 02/13/18 16:21 02/13/18 16:21 02/13/18 16:21 02/13/18 16:21 - General physical appearance Present: moderate distress, chronically ill - ENT Present: normal nares. Absent: no congestion - Neck Present: trachea midline - Respiratory Present: other (moderate respiratory distress). Absent: normal respiratory effort - Abdomen Abdomen: Present: soft, non tender - Genitourinary normal penis with no external lesions, other (scant wine colored urine ) Urethral meatis: Present: patent - Integumentary Present: no rash, lesions (left upper extremity swollen, deep red in color from elbow to hand due to DVT), erythema - Neurologic Present: other (non-communicative ) - Musculoskeletal Present: other (bilateral lower leg edema +4) Urology Results - Labs 02/14/18 05:29 02/14/18 05:29 Abnormal lab results RDW 17.0 % (11.5-14.5) H 02/14/18 05:29 Plt Count 79 K/mcL (140-400) L 02/14/18 05:29 MPV 12.8 fL (9.4-12.4) H 02/14/18 05:29 Lymphocytes # 0.5 K/mcL (0.6-4.6) L 02/13/18 17:19 Nucleated RBCs/100 WBC 0.2 /100 WBC (0) H 02/13/18 17:19 Immature Plt Fraction 10.8 % (1.1-6.1) H 02/14/18 05:29 PT 32.8 Seconds (9.4-12.1) H D 02/14/18 05:29 APTT 41.9 Seconds (26.0-36.0) H 02/13/18 17:19 ABG pH 7.47 pH Units (7.32-7.45) H 02/14/18 09:13 ABG pCO2 25 mmHg (35-45) L 02/14/18 09:13 ABG pO2 190 mmHg (85-104) H D 02/14/18 09:13 ABG HCO3 18 mEq/L (21-27) L 02/14/18 09:13 ABG Total CO2 19 mEq/L (20-26) L 02/14/18 09:13 ABG O2 Saturation 100 % (95-98) H 02/14/18 09:13 ABG Base Excess -3 mEq/L (-2 to 3) L 02/14/18 09:13 Sodium 133 mEq/L (136-145) L 02/14/18 05:29 Carbon Dioxide 19 mEq/L (23-29) L 02/14/18 05:29 BUN 38 mg/dL (8-23) H 02/14/18 05:29 Creatinine 1.58 mg/dL (0.70-1.30) H 02/14/18 05:29 Est GFR ( Amer) 51 (> 60) L 02/14/18 05:29 Est GFR (Non-Af Amer) 42 (> 60) L 02/14/18 05:29 Lactic Acid 3.1 mmol/L (0.5-2.2) H 02/14/18 05:30 Calcium 8.3 mg/dL (8.6-10.3) L 02/14/18 05:29 Troponin I 0.13 ng/mL (< 0.04) H* 02/14/18 05:29 B-Natriuretic Peptide 629 pg/mL (Less than 100) H 02/13/18 17:19 Urine Clarity Cloudy (Clear) A 02/13/18 19:32 Urine Bilirubin Small (Negative) H 02/13/18 19:32 Ur Leukocyte Esterase Moderate (Negative) H 02/13/18 19:32 Urine Microscopic WBC 15-30 per hpf (0-3) H 02/13/18 19:32 Ur Squamous Epith Cells Moderate per lpf (None-Few) H 02/13/18 19:32 Hyaline Casts Moderate per lpf (None-Few) H 02/13/18 19:32 Diabetes panel 02/13/18 02/13/18 02/14/18 Range/Units 17:19 18:08 05:29 Sodium Cancelled 133 L 133 L Potassium Cancelled 4.9 4.2 Chloride Cancelled 101 102 Carbon Dioxide Cancelled 21 L 19 L BUN Cancelled 35 H 38 H Creatinine Cancelled 1.33 H 1.58 H Glucose Cancelled 110 H 78 Calcium Cancelled 8.5 L 8.3 L Calcium panel 02/13/18 02/13/18 02/14/18 Range/Units 17:19 18:08 05:29 Calcium Cancelled 8.5 L 8.3 L Pituitary panel 02/13/18 02/13/18 02/14/18 Range/Units 17:19 18:08 05:29 Sodium Cancelled 133 L 133 L Potassium Cancelled 4.9 4.2 Chloride Cancelled 101 102 Carbon Dioxide Cancelled 21 L 19 L BUN Cancelled 35 H 38 H Creatinine Cancelled 1.33 H 1.58 H Glucose Cancelled 110 H 78 Calcium Cancelled 8.5 L 8.3 L Adrenal panel 02/13/18 02/13/18 02/14/18 Range/Units 17:19 18:08 05:29 Sodium Cancelled 133 L 133 L Potassium Cancelled 4.9 4.2 Chloride Cancelled 101 102 Carbon Dioxide Cancelled 21 L 19 L BUN Cancelled 35 H 38 H Creatinine Cancelled 1.33 H 1.58 H Glucose Cancelled 110 H 78 Calcium Cancelled 8.5 L 8.3 L All other labs normal. Consult Discharge Plan - Plan Referrals: Tamiko Cortes MD [Primary Care Provider] -
--- NOTE | 2018-02-14 09:46 | Procedure Note ---
Date of procedure: 02/14/18 Pre-op diagnosis: Shock Post-op diagnosis: same Procedure: CVC insertion Surgeon: Fer Johnson Was there an assistant operations manager present: No Estimated blood loss (cc): 3 Specimen: none Condition: critical Disposition: no change Procedures: Internal Med - Central Line Placement Right IJ Consent Obtained: verbal consent, written consent Time out performed: No (emergent) Patient placed on monitor/pulse ox: Yes MD prep: mask, gown, gloves, other Central line prep: Chlorhexidine scrub Local anesthesia used: Lidocaine 1% Amount of anesthesia used (mls): 8 Ultrasound used for placement: Yes Central line lumen inserted: triple Post Procedure: sutured in place, good blood return, all ports aspirated, flushed, capped, sterile dressing applied, dark venous blood, biodisk applied Post procedure x-ray: tip of catheter in good position, no pneumothorax seen Patient tolerated procedure: well, no complications Complications: none
[2018-02-14] MEDS: Vasopressin 40 UNIT in D5% in Water 100 ML IV SCH (09:56)
[2018-02-14 10:36] LABS: Thyroid Stimulating Hormone 4.778 mcIU/mL (0.340-5.600)
--- NOTE | 2018-02-14 11:01 | Cardiology Consult Note ---
Addendum entered and electronically signed by Alisha Damian MD 02/14/18 18:36: Patient was seen and evaluated independently by me. Findings, assessment and plan were discussed at length with patient, questions answered. Agree with nurse practitioner's/resident's documentation. Addition as follows, 83 yoCM ho HFpEF, bio-AVR and MVR, PAF. Recent ADHF and LUE DVT and phlebitis. P/w worsening dyspnea with fever. Imp septic shock requiring 2 pressors, ADHF, mod-severe fluid overload with DARWIN, hematuria after pathak, INR 1.9-3.4. Recent echo EF 55%, RV dilation with dysfunction, bi-A enlargement. Trop 0.13 A: septic shock Recurrent ADHF, fluid overload with significant DARWIN PAF LUE DVT, phlebitis awaiting [facility] transfer per pt's preference P: vascular consult recommend early transfer to a [facility] with HF service for HD monitoring and possible CVVH. Alisha Damian MD, PhD Addendum entered and electronically signed by Oscar Shannon CNP 02/14/18 12:40: Discussed assessment and POC with Dr. Damian. Agrees with transfer to higher level of care facility. Original Note: Date of Encounter: 02/14/18 Time of Encounter: 11:00 Assessment and Plan (1) Acute exacerbation of congestive heart failure Current Visit: Yes Status: Acute Acute on chronic CHFpEF and right sided heart failure complicated by acute renal failure. Records reviewed. Pt follows with [facility], TTE 02/05/18 reviewed LVEF 55%. Atypical septal motion consistent with post-operative status. Indeterminate diastolic function. Mild to moderately dilated RV with mild reduction in function. Bi-atrial enlargement. Bioprosthetic aortic valve not well visualized. Doppler gradient not optimally obtained. No regurgitation. Bioprosthetic mitral valve not well visualized. Mild mitral regurgitation. No Doppler evidence for stenosis. Moderate tricuspid regurgitation. Mild pulmonic regurgitation. No pulmonary hypertension based on TR gradient obtained. May be underestimated. IV lasix given last night with minimal urine out-put and now with gross hematuria. Also hypotensive requiring pressor support. BNP improved since last admit at 629. CXR shows atelectasis. Strict I&O and daily weights. Consider nephrology consult if patient has no urine out-put despite lasix. Urology following for hematuria. I will discuss further recommendation with Dr. Damian. Qualifiers: Qualified Code(s): I50.33 - Acute on chronic diastolic (congestive) heart failure (2) Atrial fibrillation Current Visit: No Status: Chronic Currently V pacing with rate controlled afib. Mild afib with RVR on EKG. Poor telemetry tracing on my exam while patient is very agitated. Restart lopressor when b/p improves. He is on coumadin therapy. Ideally due to high risk for CVA he should continue coumadin. May need to hold secondary to gross hematuria. Urology following. Qualifiers: Qualified Code(s): I48.2 - Chronic atrial fibrillation (3) S/P aortic valve and mitral valve replacement Current Visit: No Status: Acute H/o bioprosthetic aortic and mitral valve replacement in 2010. (4) Elevated troponin Current Visit: Yes Status: Acute Troponin elevation up to 0.13, likely secondary to DARWIN and hypotension. No acute ST changes on EKG. Recent TTE showed EF 50%. Noted to have chronic troponin elevation. Pt does not c/o chest pain. C/o SOB and pelvic pain. No further cardiac testing at this time. Discussion w patient/family: The assessment and plan as outlined above was discussed with the patient and/or family members who expressed understanding and agreement. All questions were answered. Thank you for involving us in the care of your patient. Please call with any questions. History of Present Illness Consult date: 02/14/18 Consult reason: Extensive cardiac history, chronic troponin elevation, CHF Chief complaint: BLE edema History of present illness: Mr. 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 He presents with increasing BLE edema. He was hospitalized 02/05/18 for CHF exacer bation and diuresis given. He was seen in the ED 02/11/18 and diagnosed with LUE DVT. He returned to the edema for recurrent edema per records. On my exam he c/o pelvic pain and feeling like he needed to urinate. Pathak catheter intact with scant amt bloody urine. Per RN at bedside he had minimal urine out-pt despite IV lasix given last night. Bladder scan completed and did not show urine. He was f ound to have worsening kidney function. Urology was consulted. Last night he also developed hypotension and increasing SOB. He was transferred to ICU and placed on IV pressor support and 100% NRB. Patient and requested that he be transferred to [facility] for further management he is awaiting bed placement. Past Med Surg Social Fam HX - Past Medical History Source: old records reviewed Medical history: atrial fibrillation, cardiomyopathy, CHF, coronary artery disease, hyperlipidemia, hypertension, myocardial infarction, osteoporosis Psychiatric history: no psych history - Past Surgical History Surgical History: pacemaker/AICD Additional surgical history: mitral valve replacement - Social History Smoking Status: Former smoker Smokeless Tobacco Status: No Alcohol use: none Drug use: none - Family History Mother Hx Family Cardiac Disorders: Yes ([place] at 51) Hx Family Cancer: Yes (leukemia) Father Living Status: Hx Family Neurologic Disorders: Yes (CVA) Medications and Allergies Atorvastatin Calcium [Lipitor] 80 mg PO HS 01/15/17 [History] Finasteride [Proscar] 5 mg PO DAILY 01/15/17 [History] Metoprolol Tartrate [Lopressor] 25 mg PO BID 01/15/17 [History] Spironolactone [Aldactone] 25 mg PO BID 01/15/17 [History] Tamsulosin [Flomax] 0.4 mg PO DAILY 01/15/17 [History] Torsemide [Demadex] 20 mg PO DAILY 01/15/17 [History] Folic Acid/Multivit-Min/Lutein [Cvs Spectravite Adult Tab Chew] 1 tab PO DAILY 02/01/17 [History] Glucosamine/Chondroitin Sulf A [Cvs Glucosamine-Chondroit Chew] 1 tab PO BID 02/01/17 [History] Melatonin 10 mg PO HS 02/05/18 [History] Ipratropium [ATROVENT Inhaler] 2 puff IH QID PRN 02/13/18 [History] Warfarin Sodium 5 mg PO DAILY 02/13/18 [History] Allergy/AdvReac Type Severity Reaction Status Date / Time Sulfa (Sulfonamide Allergy Rash Verified 02/05/18 11:59 Antibiotics) lisinopril AdvReac Cough Verified 02/05/18 11:59 All Systems Review: The remainder of the systems were reviewed and are negative Physical Examination Vital Signs, Last 4 Hours Temp Pulse Resp BP Pulse Ox 02/14/18 10:00 99 22 78/53 96 02/14/18 09:00 109 28 83/57 100 02/14/18 08:00 98.1 F 97 26 77/53 98 02/14/18 07:00 86 26 74/51 100 General: Other (Mildly confused with c/o needing to urinate will not participate in other discussion.) HEENT: Atraumatic, Normocephaly, Mucus Membranes Moist Neck: No JVD, Normal carotid pulses, Other (IJ central ine intact) Cardiac: Other (SR with PAC, paced. Irregular, [place] ICD in place) Lungs: Other (Difficult to assess due to patient begging to get out of bed and unable to follow commands. ) Neuro: Alert and responsive Abdomen: Soft, Non-Tender Skin: Other (Multiple ecchymotic areas, LUE redness and swelling noted. C/o pain to palpation.) Musculoskeletal: No Chest Wall Tenderness Extremities: No Clubbing, Normal Pulses, Other (Genralized edema noted with 2+ pitting edema in BLE. Edema LUE with redness and ecchymosis. ) Results 02/14/18 05:29 02/14/18 05:29 Lab Results 02/13/18 02/13/18 02/13/18 17:19 17:19 17:19 WBC 10.0 Hgb 15.7 Hct 47.7 Plt Count 130 L INR 1.9 APTT 41.9 H Sodium Potassium Chloride Carbon Dioxide BUN Creatinine Glucose Calcium Troponin I B-Natriuretic Peptide 629 H TSH 02/13/18 02/13/18 02/14/18 17:19 18:08 05:29 WBC 4.4 D Hgb 15.4 Hct 45.6 Plt Count 79 L INR APTT Sodium Cancelled 133 L Potassium Cancelled 4.9 Chloride Cancelled 101 Carbon Dioxide Cancelled 21 L BUN Cancelled 35 H Creatinine Cancelled 1.33 H Glucose Cancelled 110 H Calcium Cancelled 8.5 L Troponin I 0.05 H* B-Natriuretic Peptide TSH 02/14/18 02/14/18 02/14/18 05:29 05:29 05:29 WBC Hgb Hct Plt Count INR 2.9 D APTT Sodium 133 L Potassium 4.2 Chloride 102 Carbon Dioxide 19 L BUN 38 H Creatinine 1.58 H Glucose 78 Calcium 8.3 L Troponin I 0.13 H* B-Natriuretic Peptide TSH 02/14/18 09:18 WBC Hgb Hct Plt Count INR APTT Sodium Potassium Chloride Carbon Dioxide BUN Creatinine Glucose Calcium Troponin I B-Natriuretic Peptide TSH 4.778 - Imaging and Cardiology Echo: report reviewed - EKG Interpretation EKG results cardiology: personally reviewed Consult Discharge Plan - Plan Referrals: Tamiko Cortes MD [Primary Care Provider] -
[2018-02-14] MEDS: Pantoprazole 40 MG VIAL IVP SCH (11:30)
--- NOTE | 2018-02-14 15:11 | Vascular/Endovasc Consult Note ---
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 The patient is chronically anticoagulant with Coumadin for atrial fibrillation. His INR was at a therapeutic and he received Lovenox after the diagnosis was made. His INR today is 2.9 and his a nticoagulation has been held. Arm elevation and analgesia recommended for symptomatic relief. Qualifiers: DVT location: upper extremity Affected thrombotic vein of extremity: brachial Chronicity: unspecified Laterality: left Qualified Code(s): I82.622 - Acute embolism and thrombosis of deep veins of left upper extremity (2) Left arm pain Current Visit: Yes Status: Acute The patient has progressive pain and swelling of the left upper extremity. He is currently on 2 pressors that are being infused centrally. He has a left brachial vein deep vein thrombosis. His left upper extremities well perfused with polyphasic radial signals. He has ecchymosis with bullae formation. The bullae serous of blood-tinged fluid. There is no crepitance or fluctuance there may be mild erythema underlying the ecchymosis. There is no evidence of arterial or other vascular compromise. The patient is already on broad-spectrum antibiotics. Continue with elevation of the left upper extremity and close monitoring. (3) Acute exacerbation of congestive heart failure Current Visit: Yes Status: Acute The patient is scheduled to be transferred to [facility]. Qualifiers: Heart failure type: diastolic Qualified Code(s): I50.33 - Acute on chronic diastolic (congestive) heart failure (4) Acute respiratory failure with hypoxia Current Visit: Yes Status: Acute - History of Present Illness Consult date: 02/14/18 Requesting physician: Yael Jaime Consult reason: left arm pain and swelling Chief complaint: Left arm pain History of present illness: Mr. Taylor is a 83 year old male with a history of atrial fibrillation, congestive heart failure, coronary artery disease, hyperlipidemia, hypertension and deep vein thrombosis. Patient history of a left upper extremity deep vein thrombosis which was diagnosed on 02/12/2018. The patient was already on Coumadin therapy but his INR was subtherapeutic. He was given Lovenox. The patient was admitted to the intensive care unit with progressive edema secondary to CHF exacerbation. The patient requires norepinephrine and vasopressin. The patient developed progressive edema and discoloration of the left upper extremity. Vascular surgery was then consulted for acute changes of the left upper extremity. The patient denies fevers or chills. He does report pain in the left upper extremity. Past Med Surg Social Fam HX - Past Medical History Medical history: atrial fibrillation, CHF, coronary artery disease, hyperlipidemia, hypertension, myocardial infarction, osteoporosis Psychiatric history: no psych history - Past Surgical History Surgical History: pacemaker/AICD Additional surgical history: mitral valve replacement - Social History Smoking Status: Former smoker Smokeless Tobacco Status: No Alcohol use: none Drug use: none - Family History Mother Hx Family Cardiac Disorders: Yes ([place] at 51) Hx Family Cancer: Yes (leukemia) Father Living Status: Hx Family Neurologic Disorders: Yes (CVA) Medications and Allergies Atorvastatin Calcium [Lipitor] 80 mg PO HS 01/15/17 [History] Finasteride [Proscar] 5 mg PO DAILY 01/15/17 [History] Metoprolol Tartrate [Lopressor] 25 mg PO BID 01/15/17 [History] Spironolactone [Aldactone] 25 mg PO BID 01/15/17 [History] Tamsulosin [Flomax] 0.4 mg PO DAILY 01/15/17 [History] Torsemide [Demadex] 20 mg PO DAILY 01/15/17 [History] Folic Acid/Multivit-Min/Lutein [Cvs Spectravite Adult Tab Chew] 1 tab PO DAILY 02/01/17 [History] Glucosamine/Chondroitin Sulf A [Cvs Glucosamine-Chondroit Chew] 1 tab PO BID 02/01/17 [History] Melatonin 10 mg PO HS 02/05/18 [History] Ipratropium [ATROVENT Inhaler] 2 puff IH QID PRN 02/13/18 [History] Warfarin Sodium 5 mg PO DAILY 02/13/18 [History] Allergy/AdvReac Type Severity Reaction Status Date / Time Sulfa (Sulfonamide Allergy Rash Verified 02/05/18 11:59 Antibiotics) lisinopril AdvReac Cough Verified 02/05/18 11:59 All Systems Review: The remainder of the systems were reviewed and are negative - Constitutional Constitutional: no chills, no fever(s) Exam Vital Signs, Last 4 Hours Temp Pulse Resp BP Pulse Ox 02/14/18 14:00 94 32 74/61 96 02/14/18 13:00 94 34 78/54 96 02/14/18 12:00 98.2 F 97 38 85/63 96 02/14/18 11:14 96 General: Present: Conversant, No Apparent Distress HEENT: Present: Trachea midline, Pupils equal Neck: Absent: Lymphadenopathy, Left Carotid bruit, Right Carotid bruit Cardiac: Present: Normal S1 and S2, Irregular Rhythm Lungs: Present: Other (Breath sounds bilaterally) Neuro: Present: Alert and responsive, Motor nerves grossly intact, Sensory nerves grossly intact Abdomen: Present: Soft Vascular: Present: Normal capillary refill, Edema (Bilateral upper and lower extremity edema, ). Absent: Cyanosis Skin: Present: Other (Left upper extremities warm and well perfused, the left radial signals polyphasic the left upper extremity skin is fragile, bullae with blood-tinged serous drainage is noted, there is well-demarcated ecchymosis of the left upper extremity with significant edema, mild erythema may be present) Consult Discharge Plan - Plan Referrals: Tamiko Cortes MD [Primary Care Provider] -
[2018-02-14] MEDS ORDERED: Aminoglycoside Consult 1 EACH MC ONE (15:29)
[2018-02-14] MEDS: Norepinephrine 8 MG in D5% in Water 250 ML IVC SCH ×2 (15:37→20:37)
[2018-02-14 15:38] LABS: Nucleated Red Blood Cells 0.2 /100 WBC (0); Red Cell Distribution Width 17.2 % (11.5-14.5)
[2018-02-14 15:40] LABS: Hematocrit 44.1 % (37.5-50.1); Immature Platelets 9.5 % (1.1-6.1); Mean Corpuscular Hemoglobin 31.7 pg (28.0-33.3); Mean Corpuscular Volume 93.2 fL (83.0-100.0); Mean Platelet Volume 13.5 fL (9.4-12.4); Platelet Count 79 K/mcL (140-400); Red Blood Count 4.73 M/mcL (4.19-5.50)
[2018-02-14] MEDS ORDERED: Lidocaine Jelly 6ml 1 APPL/6 ML JEL.PF.APP TP ONE (15:50)
[2018-02-14 16:11] LABS: Albumin 2.8 g/dL (3.5-5.7); Albumin/Globulin Ratio 1.5 (1.1-2.2); Bilirubin,Direct 1.5 mg/dL (0.0-0.2); Bilirubin,Indirect 1.2 mg/dL (0.0-1.2); Bilirubin,Total 2.7 mg/dL (0.3-1.0); Calcium 7.6 mg/dL (8.6-10.3); Globulin 1.9 g/dL (2.4-3.5); Potassium 4.2 mEq/L (3.5-5.1); Total Protein 4.7 g/dL (6.4-8.9)
[2018-02-14 16:31] LABS: Lymphocytes # 0.5 K/mcL (0.6-4.6); Monocytes # 1.2 K/mcL (0.0-1.3); Neutrophils # 9.4 K/mcL (1.6-8.9); Platelet Estimate Decreased (Normal)
[2018-02-14 16:35] LABS: INR 3.4; Prothrombin Time 38.6 Seconds (9.4-12.1)
[2018-02-14 17:16] LABS: Troponin I 0.18 ng/mL (< 0.04)
[2018-02-14 20:31] LABS: Acinetobacter baumannii by PCR Not Detected (Not Detect); Candida albicans by PCR Not Detected (Not Detect); Candida glabrata by PCR Not Detected (Not Detect); Candida krusei by PCR Not Detected (Not Detect); Candida parapsilosis by PCR Not Detected (Not Detect); Candida tropicalis by PCR Not Detected (Not Detect); Enterobacter cloacae Cmplx PCR Not Detected (Not Detect); Enterobacteriaceae by PCR Not Detected (Not Detect); Enterococcus by PCR Not Detected (Not Detect); Escherichia coli by PCR Not Detected (Not Detect); Klebsiella oxytoca by PCR Not Detected (Not Detect); Klebsiella pneumoniae by PCR Not Detected (Not Detect); Proteus by PCR Not Detected (Not Detect); Pseudomonas aeruginosa by PCR Not Detected (Not Detect); Serratia marcescens by PCR Not Detected (Not Detect); Staphylococcus aureus by PCR Not Detected (Not Detect); Staphylococcus by PCR Not Detected (Not Detect); Streptococcus agalactiae(B)PCR Not Detected (Not Detect); Streptococcus by PCR DETECTED (Not Detect); Streptococcus pneumoniae PCR Not Detected (Not Detect); Streptococcus pyogenes (A) PCR DETECTED (Not Detect)
[2018-02-14] MEDS: EPINEPHrine 1 MG in D5% in Water 250 ML IVC SCH ×2 (20:36→20:54)
--- NOTE | 2018-02-14 21:06 | Event Note ---
Date of Encounter: 02/14/18 Time of Encounter: 21:00 Received report for positive blood culture for this patient, group A strep in 1 of 2 bottles. Patient on vanco and zosyn, which would not cover GAS. After discussion with pharmacy, decided to start patient on clindamycin 900mg Q8H, keeping vanco and zosyn on board for now. Will continue to monitor, with possible deescalation of antibiotics tomorrow at discretion of ICU team.
[2018-02-14 22:11] LABS: Hematocrit 47.6 % (37.5-50.1); Hemoglobin 15.4 g/dL (12.9-16.9); Mean Corpuscular HGB Conc 32.4 g/dL (31.6-35.5); Mean Corpuscular Hemoglobin 30.7 pg (28.0-33.3); Red Cell Distribution Width 17.3 % (11.5-14.5)
[2018-02-14 22:13] LABS: Immature Platelets 16.4 % (1.1-6.1); Mean Corpuscular Volume 94.8 fL (83.0-100.0); Mean Platelet Volume 13.2 fL (9.4-12.4); Nucleated Red Blood Cells 0.1 /100 WBC (0); Red Blood Count 5.02 M/mcL (4.19-5.50)
[2018-02-14 22:16] LABS: Platelet Count 72 K/mcL (140-400)
[2018-02-14 22:30] LABS: Calcium 7.8 mg/dL (8.6-10.3); Potassium 4.5 mEq/L (3.5-5.1)
[2018-02-14] MEDS: Clindamycin 900 MG/50 ML 900 MG/50 ML IV.SOLN IVPB SCH (22:39)
[2018-02-14] MEDS ORDERED: Perflutren Lipid Microsphere 1.3 ML in 0.9 % Sodium Chloride 8.7 ML IVP ONE (22:42)
[2018-02-14 22:49] LABS: Platelet Estimate Decreased (Normal)
[2018-02-14] MEDS ORDERED: 0.9 % Sodium Chloride 500 ML ONE (22:51)
[2018-02-14 22:55] LABS: Lymphocytes # 1.1 K/mcL (0.6-4.6); Monocytes # 1.1 K/mcL (0.0-1.3); Neutrophils # 15.4 K/mcL (1.6-8.9)
[2018-02-14 22:56] LABS: Large Platelets Present (Not Present)
--- NOTE | 2018-02-14 23:12 | Nephrology Consult Note ---
Date of Encounter: 02/14/18 Time of Encounter: 23:11 Assessment and Plan (1) DARWIN (acute kidney injury) Status: Acute Patient with multifactorial DARWIN including worsening sepsis. No immediate need for renal replacement therapy, but will provide if renal function worsens. Recommend supportive care including treatment of underlying sepsis and avoiding nephrotoxins. Thank you for the consult. Will continue to follow with you. History of Present Illness - Reason for Consult Consult date: 02/14/18 Acute Kidney Injury - Chief Complaint DARWIN - History of Present Illness Mr. Taylor is an 85 yo man with multiple medical problems who presented with edema and dyspnea. He receives care at the [facility] and the original plan was for him to transfer there for care, but unfortunately his conditioned worsened and he developed acute kidney injury. Nephrology was consulted to assist with management of DARWIN. Past Med Surg Social Fam HX - Past Medical History Medical history: atrial fibrillation, CHF, coronary artery disease, hyperlipidemia, hypertension, myocardial infarction, osteoporosis Psychiatric history: no psych history - Past Surgical History Surgical History: pacemaker/AICD Additional surgical history: mitral valve replacement - Social History Smoking Status: Former smoker Smokeless Tobacco Status: No Alcohol use: none Drug use: none - Family History Mother Hx Family Cardiac Disorders: Yes ([place] at 51) Hx Family Cancer: Yes (leukemia) Father Living Status: Hx Family Neurologic Disorders: Yes (CVA) Medications and Allergies Atorvastatin Calcium [Lipitor] 80 mg PO HS 01/15/17 [History] Finasteride [Proscar] 5 mg PO DAILY 01/15/17 [History] Metoprolol Tartrate [Lopressor] 25 mg PO BID 01/15/17 [History] Spironolactone [Aldactone] 25 mg PO BID 01/15/17 [History] Tamsulosin [Flomax] 0.4 mg PO DAILY 01/15/17 [History] Torsemide [Demadex] 20 mg PO DAILY 01/15/17 [History] Folic Acid/Multivit-Min/Lutein [Cvs Spectravite Adult Tab Chew] 1 tab PO DAILY 02/01/17 [History] Glucosamine/Chondroitin Sulf A [Cvs Glucosamine-Chondroit Chew] 1 tab PO BID 02/01/17 [History] Melatonin 10 mg PO HS 02/05/18 [History] Ipratropium [ATROVENT Inhaler] 2 puff IH QID PRN 02/13/18 [History] Warfarin Sodium 5 mg PO DAILY 02/13/18 [History] Allergy/AdvReac Type Severity Reaction Status Date / Time Sulfa (Sulfonamide Allergy Rash Verified 02/05/18 11:59 Antibiotics) lisinopril AdvReac Cough Verified 02/05/18 11:59 Review of Systems ROS unobtainable: due to mental status Exam - Vital Signs Vital signs: Initial Vital Signs Temp Pulse Resp BP Pulse Ox 97.6 F 87 22 92/71 99 02/13/18 16:21 02/13/18 16:21 02/13/18 16:21 02/13/18 16:21 02/13/18 16:21 Vital Signs - Last 8 Hours Temp Pulse Resp BP Pulse Ox 02/14/18 23:00 86 30 95/55 92 02/14/18 22:00 84 30 96/86 92 02/14/18 21:00 84 36 70/45 95 02/14/18 20:00 85 38 75/65 97 02/14/18 19:45 83 02/14/18 19:00 98.4 F 86 36 73/52 93 02/14/18 18:00 90 26 84/73 97 02/14/18 17:00 93 36 94/43 98 02/14/18 16:00 98.4 F 88 32 119/53 95 02/14/18 15:58 99 02/14/18 15:30 100 Intake and Output 02/14/18 02/14/18 02/14/18 07:59 15:59 23:59 Intake Total 360 / 360 4 / 2174 358 / 358 Output Total 550 / 550 80 / 80 15 / 15 Balance -190 / -190 2093 / 2093 343 / 343 Intake: IV Fluids 2173 / 2173 358 / 358 0.9 % Sodium Chloride 1,000 ML 800 / 800 @ 0 mls/hr .ROUTE .STK-MED ONE Rx#:[id number] Vasostrict 40 UNIT In Dextrose 12 / 12 5% 100 ML @ 0.03 UNIT/MIN 4.59 mls/hr IV .[id number] [facility] Rx#: [id number] EPINEPHrine 1 MG In Dextrose 5% 0 / 0 250 ML @ 2 MCG/MIN 30.12 mls/ hr IVC CONT [facility] Rx#:[id number] Levophed 8 MG In Dextrose 5% 762 / 762 258 / 258 250 ML @ Per Protocol IVC CONT [facility] Rx#:[id number] ALBURX 5% 12.5 gm In 250 ml @ 250 / 250 60 mls/hr IVPB ONCE ONE Rx#: [id number] Zosyn 3.375 GM In 0.9 % Sodium 100 / 100 100 / 100 Chloride (Mini-Bag +) 100 ML @ 25 mls/hr IVPB Q8HR [facility] Rx#: [id number] Vancocin 1,250 MG In 0.9 % 250 / 250 Sodium Chloride 250 ML @ 166.67 mls/hr IVPB ONCE ONE Rx#: [id number] Oral 360 / 360 Output: Urine 450 / 450 Catheter 100 / 100 80 / 80 15 / 15 Other: Weight 85.1 kg Blood Glucose* 95 Patient Weight 02/14/18 23:59 Weight 85.1 kg - General Appearance General appearance: well-developed, well-nourished EENT: ATNC Integumentary: warm and dry Results - Lab Results 02/15/18 07:30 02/15/18 07:30 Most recent lab results ABG pH 7.47 pH Units (7.32-7.45) H 02/14/18 09:13 ABG pCO2 25 mmHg (35-45) L 02/14/18 09:13 ABG pO2 190 mmHg (85-104) H D 02/14/18 09:13 ABG HCO3 18 mEq/L (21-27) L 02/14/18 09:13 ABG O2 Saturation 100 % (95-98) H 02/14/18 09:13 Calcium 7.8 mg/dL (8.6-10.3) L 02/14/18 21:55 Consult Discharge Plan - Plan Referrals: Tamiko Cortes MD [Primary Care Provider] -
[2018-02-15] MEDS: EPINEPHrine 1 MG in D5% in Water 250 ML IVC SCH ×2 (00:22→03:09)
[2018-02-15] MEDS: Dexmedetomidine HCl 400 MCG/100 ML MLS IVC SCH ×2 (01:14→13:15)
[2018-02-15] MEDS: Vasopressin 40 UNIT in D5% in Water 100 ML IV SCH (01:15)
[2018-02-15] MEDS: Norepinephrine 8 MG in D5% in Water 250 ML IVC SCH ×2 (01:16→06:11)
[2018-02-15 03:31] LABS: ABG PCO2 < 13 mmHg (35-45); ABG PH 7.27 pH Units (7.32-7.45); ABG PO2 320 mmHg (85-104); Blood Gas Modality BiLevel; Blood Gas PEEP 6 cm H2O
[2018-02-15] MEDS ORDERED: EPINEPHrine 5 MG in D5% in Water 250 ML IVC SCH ×2 (03:45)
[2018-02-15 04:40] LABS: VBG Ionized Calcium 0.71 mmol/L (1.15-1.35)
[2018-02-15 04:57] LABS: Hematocrit 41.4 % (37.5-50.1); Hemoglobin 13.7 g/dL (12.9-16.9); Immature Platelets 19.6 % (1.1-6.1); Mean Corpuscular HGB Conc 33.1 g/dL (31.6-35.5); Mean Corpuscular Hemoglobin 31.1 pg (28.0-33.3); Mean Corpuscular Volume 93.9 fL (83.0-100.0); Mean Platelet Volume 13.5 fL (9.4-12.4); Nucleated Red Blood Cells 0.3 /100 WBC (0); Red Blood Count 4.41 M/mcL (4.19-5.50); Red Cell Distribution Width 16.7 % (11.5-14.5)
[2018-02-15 04:58] LABS: Platelet Count 57 K/mcL (140-400)
[2018-02-15] MEDS ORDERED: Sodium Bicarbonate 150 MEQ in D5% in Water 1,000 ML IVC SCH (05:00)
[2018-02-15 05:22] LABS: Albumin/Globulin Ratio 1.4 (1.1-2.2); Bilirubin,Total 1.9 mg/dL (0.3-1.0); Calcium 5.9 mg/dL (8.6-10.3); Globulin 1.4 g/dL (2.4-3.5); Magnesium 1.8 mg/dL (1.6-2.6); Phosphorous 6.7 mg/dL (2.7-4.5); Potassium 3.8 mEq/L (3.5-5.1); Total Protein 3.4 g/dL (6.4-8.9)
[2018-02-15] MEDS ORDERED: Calcium Gluconate 2,000 MG in 0.9 % Sodium Chloride 100 ML IVPB ONE ×2 (05:29→07:01)
[2018-02-15 05:32] LABS: Large Platelets Present (Not Present); Lymphocytes # 0.4 K/mcL (0.6-4.6); Monocytes # 2.5 K/mcL (0.0-1.3); Neutrophils # 18.1 K/mcL (1.6-8.9); Platelet Estimate Decreased (Normal)
[2018-02-15 05:33] LABS: Anisocytosis 1+ (Not Present); Polychromasia 1+ (Not Present)
[2018-02-15 05:53] LABS: ABG Base Excess -16 mEq/L (-2 to 3); ABG HCO3 9 mEq/L (21-27); ABG Oxygen Saturation 99 % (95-98); ABG PCO2 19 mmHg (35-45); ABG PH 7.26 pH Units (7.32-7.45); ABG PO2 163 mmHg (85-104); ABG TCO2 9 mEq/L (20-26); Blood Gas Modality PRVC; Blood Gas PEEP 5 cm H2O; Blood Gas Respiration Rate 20; Blood Gas VT 500 cc
--- NOTE | 2018-02-15 07:16 | Pulmonology Progress Note ---
<ElizabethFer W - Last Filed: 02/15/18 10:50> Date of Encounter: 02/15/18 Objective PUL Vital signs: Last Vital Signs Temp 96.7 F L 02/15/18 05:00 Pulse 83 02/15/18 08:18 Resp 23 02/15/18 08:00 BP 102/71 02/15/18 08:00 Pulse Ox 100 02/15/18 09:42 Ventilator Settings Ventilator Settings: Ventilator Settings, Last 8 Hours Ventilator Tidal Volume 500 Setting Ventilator Tidal Volume 500 Setting Ventilator Tidal Volume 500 Setting Ventilator Tidal Volume 500 Setting Ventilator Tidal Volume 500 Setting Ventilator Respiratory Rate 20 Setting Ventilator Respiratory Rate 20 Setting Ventilator Respiratory Rate 20 Setting Ventilator Respiratory Rate 20 Setting Ventilator Respiratory Rate 20 Setting Actual Respiratory Rate 24 Actual Respiratory Rate 22 Actual Respiratory Rate 26 Actual Respiratory Rate 23 Positive End Expiratory 5 Pressure Positive End Expiratory 5 Pressure Positive End Expiratory 5 Pressure Positive End Expiratory 5 Pressure Positive End Expiratory 5 Pressure Peak Inspiratory Airway 8.5 Pressure Peak Inspiratory Airway 6.6 Pressure Peak Inspiratory Airway 8.9 Pressure Results - Laboratory Findings CBC and BMP: 02/15/18 07:30 02/15/18 07:30 ABG ABG pH 7.26 pH Units (7.32-7.45) L 02/15/18 05:50 ABG pCO2 19 mmHg (35-45) L* 02/15/18 05:50 ABG pO2 163 mmHg (85-104) H D 02/15/18 05:50 ABG O2 Saturation 99 % (95-98) H 02/15/18 05:50 PT/INR, D-dimer PT 38.6 Seconds (9.4-12.1) H 02/14/18 16:20 Abnormal lab findings: Abnormal lab results WBC 24.1 K/mcL (4.3-11.1) H 02/15/18 07:30 RDW 17.4 % (11.5-14.5) H 02/15/18 07:30 Plt Count 67 K/mcL (140-400) L 02/15/18 07:30 MPV 13.8 fL (9.4-12.4) H 02/15/18 07:30 Band Neutrophils % 22.0 % (0-4) H 02/15/18 07:30 Metamyelocytes % 6.0 % (0) H 02/15/18 07:30 Neutrophils # 19.3 K/mcL (1.6-8.9) H 02/15/18 07:30 Nucleated RBCs/100 WBC 0.2 /100 WBC (0) H 02/15/18 07:30 Reactive Lymphocytes Present (Not Present) A 02/15/18 07:30 Platelet Estimate Decreased (Normal) L 02/15/18 07:30 Large Platelets Present (Not Present) A 02/15/18 04:15 Immature Plt Fraction 20.3 % (1.1-6.1) H 02/15/18 07:30 Polychromasia 1+ (Not Present) A 02/15/18 04:15 Anisocytosis 1+ (Not Present) A 02/15/18 04:15 PT 38.6 Seconds (9.4-12.1) H 02/14/18 16:20 APTT 41.9 Seconds (26.0-36.0) H 02/13/18 17:19 Fibrinogen 464 mg/dL (169-393) H 02/14/18 16:20 ABG pH 7.26 pH Units (7.32-7.45) L 02/15/18 05:50 ABG pCO2 19 mmHg (35-45) L* 02/15/18 05:50 ABG pO2 163 mmHg (85-104) H D 02/15/18 05:50 ABG HCO3 9 mEq/L (21-27) L 02/15/18 05:50 ABG Total CO2 9 mEq/L (20-26) L 02/15/18 05:50 ABG O2 Saturation 99 % (95-98) H 02/15/18 05:50 ABG Base Excess -16 mEq/L (-2 to 3) L 02/15/18 05:50 Sodium 128 mEq/L (136-145) L D 02/15/18 07:30 Chloride 97 mEq/L (98-107) L 02/15/18 07:30 Carbon Dioxide 7 mEq/L (23-29) L* 02/15/18 07:30 BUN 48 mg/dL (8-23) H 02/15/18 07:30 Creatinine 2.65 mg/dL (0.70-1.30) H 02/15/18 07:30 Est GFR ( Amer) 28 (> 60) L 02/15/18 07:30 Est GFR (Non-Af Amer) 23 (> 60) L 02/15/18 07:30 Glucose 147 mg/dL (70-105) H 02/15/18 07:30 Lactic Acid > 10.0 mmol/L (0.5-2.2) H* 02/15/18 07:30 Calcium 7.6 mg/dL (8.6-10.3) L 02/15/18 07:30 Venous Ioniz Calcium 0.71 mmol/L (1.15-1.35) L 02/15/18 04:37 Phosphorus 6.7 mg/dL (2.7-4.5) H 02/15/18 04:15 Total Bilirubin 2.6 mg/dL (0.3-1.0) H 02/15/18 07:30 Direct Bilirubin 1.5 mg/dL (0.0-0.2) H 02/14/18 15:15 AST 666 Units/L (13-39) H 02/15/18 07:30 ALT 468 Units/L (7-52) H 02/15/18 07:30 Creatine Kinase 493 Units/L (30-223) H 02/15/18 07:30 Troponin I 0.18 ng/mL (< 0.04) H* 02/14/18 15:15 B-Natriuretic Peptide 629 pg/mL (Less than 100) H 02/13/18 17:19 Serum Total Protein 4.4 g/dL (6.4-8.9) L 02/15/18 07:30 Albumin 2.6 g/dL (3.5-5.7) L 02/15/18 07:30 Globulin 1.8 g/dL (2.4-3.5) L 02/15/18 07:30 Urine Clarity Cloudy (Clear) A 02/13/18 19:32 Urine Bilirubin Small (Negative) H 02/13/18 19:32 Ur Leukocyte Esterase Moderate (Negative) H 02/13/18 19:32 Urine Microscopic WBC 15-30 per hpf (0-3) H 02/13/18 19:32 Ur Squamous Epith Cells Moderate per lpf (None-Few) H 02/13/18 19:32 Hyaline Casts Moderate per lpf (None-Few) H 02/13/18 19:32 Streptococcus sp PCR DETECTED (Not Detect) A 02/14/18 05:29 Group A Strep DNA DETECTED (Not Detect) A 02/14/18 05:29 - Microbiology Findings Microbiology Findings: Microbiology, Last 48 Hours 02/14/18 05:29 Blood Culture - Preliminary Peripheral Venipuncture Strep pyogenes (Group A) 02/14/18 05:20 Blood Culture - Preliminary Peripheral Venipuncture Culture is incubating and being continuously monitored for growth. Final report to follow. - Clinical Findings Intake & Output: Intake & Output 02/14/18 02/15/18 02/15/18 23:59 07:59 15:59 Intake Total 408 / 408 1231 / 1231 550 / 550 Output Total 45 / 45 Balance 393 / 393 1186 / 1186 550 / 550 Consult Discharge Plan - Plan Referrals: Tamiko Cortes MD [Primary Care Provider] - - Attending Attestation I examined this patient and my medical decision-making was reviewed with the Resident Physician. I agree with the documented findings, disposition and treat ment plan as described except to the extent set forth below. We independently had [id number] contact with the patient I spent 40min of Critical Care time with this patient. It involved decision making of high complexity to assess, manipulate, and support vital organ system failure and/or to prevent further life threatening deterioration of the patient's condition. The time involved in the performance of separately reportable procedures was not counted toward critical care time. Patient seen and examined at bedside Labs, radiology, chart personally reviewed. Management was reviewed during multidisciplinary critical care rounds. 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 ID: Septic shock secondary to group A strep bacteremia on antibiotics we have broaden his coverage to include clindamycin Heme/Onc: Chronic upper extremity DVT INR is greater than 2 today Endo: Glucose Monitored Integ/MSK: Given group based strep bacteremia and worsening findings on clinical examination of the left upper extremity of concern for soft tissue infection orthopedics was consulted on a urgent basis was evaluated by vascular surgery the previous day Skin Care per routine ICU Nursing Protocol to prevent ulcers. Lines: All lines examined without evidence of infection : Dispo: ICU for critical illness CODE: I had an extensive conversation with the bedside ICU status as well as orthopedic surgeon with the patient's adult daughters and his NOK () explaining that Mr. Taylor has multiorgan system failure secondary to septic shock is also very possible that he has an extensive soft tissue infection of the left upper extremity not limited to necrotizing fasciitis. Overall prognosis giving his chronic debilitated state and multiple medical problems including chronic heart failure is very poor continued aggressive care would unfortunately be anticipated liters the patient permanently ill and likely in a nursing facility. This is per the exactly what the patient does not want and she does not wish to pursue any further aggressive measures at this time and would transition to hospice care. Palliative care was consulted for further optimization is patient's comfort and transition to hospice measures. Emotional support was given to the patient's family. The patient is unable or incompetent to participate in giving a history and/or making treatment decisions. The discussion was necessary for determining treatment decision. This discussion took place in the [ICU]. The total meeting time was [20min] <Yael Jaime - Last Filed: 02/15/18 15:36> Date of Encounter: 02/15/18 Time of Encounter: 07:16 Assessment and Plan (1) Septic shock Current Visit: Yes Status: Acute 02/14: Elevated temp of 102, tachycardic in the 100s, tachypnic at 30 - started on Vanc and Zosyn BC and urine cx pending Lactic 3.1 1L NS ordered but not completely given due to the pts already fluid overloaded state Levophed running through central line at 30 mcg/min Vasopressin 0.04 mcg/min and albumin given TSH wnl and random cortisol >60 100mg hydrocortisone BPs remain 80s/50s Fluid bolus not given due to Hx of CHF and volume overloaded state Infection site could be left arm cellulitis vs UTI vs unknown site 02/15: Pt was intubated overnight and epi was started. Worsening LUE swelling likely secondary to nec fasc. Discussion with family about treatment options and they have elected to cease aggressive treatment. Palliative care consulted. Pt now DNR-CC. Off ventilator and pressors. BC positive for GAS, likely source from LUE wound (possible nec fasc) (2) Necrotizing fasciitis Current Visit: Yes Status: Acute BC positive for GAS Pt has worsening left arm swelling since yesterday with signs of infection Seen by vascular surgery yesterday Arm is black and necrotic CT non-contrast of LUE ordered after seen by hand surgery Pt became DNR-CC after discussion of treatment options and CT scan was not done Plan as #1 above (3) Hypotension Current Visit: Yes Status: Acute Plan as #1 above Qualifiers: Hypotension type: unspecified hypotension type Qualified Code(s): I95.9 - Hypotension, unspecified (4) Acute respiratory failure with hypoxia Current Visit: Yes Status: Acute 02/14 - Patient's oxygen saturation initially was stable on room air upon arrival to the medical floor, however after patient had gotten up to go to the bathroom, he desaturated to the mid 70's. He was transferred to for closer monitoring and placed on NRB and began satting in the high 90s. Stat chest x-ray did not show worsened pulmonary status. Consider repeating chest x-ray Vasopressors started, Lasix ordered but pt now oliguric Continue oxygen supplementation - de-escalated to 10L O2 02/15 - Pt intubated overnight. He is now DNR-CC. Extubated this am. Plan as #1 above (5) Acute on chronic systolic CHF (congestive heart failure), NYHA class 3 Current Visit: Yes Status: Acute 02/14 - Pt has 4+ pitting edema of LE Hx of CHF with AICD Sees cardiology at [facility] - was admitted to [facility] and we will transfer him there once a bed is available BNP 629 upon admission Pt now hypoxic, tachycardic, tachypnic requiring vasopressors for BP control Cardio consulted 02/15 - Pt now DNR-CC Plan as #1 above (6) DARWIN (acute kidney injury) Current Visit: Yes Status: Acute 02/14 - Elevated creatinine of 1.58 from baseline of 1. 1L fluid bolus ordered and most given despite history of CHF as he developed hypotension this morning. Continue to monitor Nephrology consultated as pt is oliguric - likely cardiorenal syndrome Hold nephrotoxic medications. 02/15 - Plan as #1 above (7) Lower extremity edema Current Visit: Yes Status: Acute 02/14 - 4+ pitting edema of LE likely secondary to CHF exacerbation vs DVT Diuresis with lasix EPCDs for DVT prophylaxis INR is 2.9 02/15 - Plan as #1 above (8) Elevated troponin Current Visit: Yes Status: Acute 02/14 - Initial trop 0.05 - pt is chronically elevated Repeat in ICU was 0.13 EKG done which showed tachycardia with a paced rhythm, and new ST segment depressions in leads V1-3 Cardiology consulted - they state this is likely secondary to DARWIN and hypotension - Plan as #1 above (9) Deep venous thrombosis of upper extremity Current Visit: No Status: Acute 02/14 - Diagnosed 2 days ago Lovenox at home - repeat INR 2.9 Patient developed hematuria during this repeat admission. Currently H&H is stable. Hold anticoagulation medications Monitor CBC q6H 1300 - left arm swelling has increased and it is becoming darker in color. The skin is starting to crack and ooze. Pulses remain 1+ in the left radial artery. Doppler studies of the arm revealed weak pulses. Repeat CPK ordered returned as 171 at 1400. Vascular consulted - Dr. Hernandez saw the patient and verified that he has left arm swelling seconday to the blood clot. His arteries are patent via doppler. No surgical intervention necessary at this time. 02/15 - Plan as #1 above Qualifiers: Affected thrombotic vein of extremity: unspecified vein of extremity Chronicity: acute Laterality: left Qualified Code(s): I82.622 - Acute embolism and thrombosis of deep veins of left upper extremity (10) Hematuria Current Visit: Yes Status: Acute 02/14 - Pt developed hematuria during this visit Urology consulted Retroperitoneal US showed normal appearing kidneys without hydronephrosis Pt is now oliguric as he has only produced 100mL urine overnight and now has no measurable urine in his bladder Nephro consulted for oliguria 02/15 - Plan as #1 above Qualifiers: Hematuria type: gross Qualified Code(s): R31.0 - Gross hematuria (11) Atrial fibrillation Current Visit: No Status: Chronic 02/14 - Pt has AICD in place Taking Lovenox at home for DVT - hold due to hematuria INR 2.9 Home meds for rate control Currently tachycardic likely secondary to septic shock Cardio following 02/15 - Plan as #1 above Qualifiers: Atrial fibrillation type: chronic Qualified Code(s): I48.2 - Chronic atrial fibrillation (12) DVT prophylaxis Current Visit: No Status: Acute 02/14 - Pt therapeutic on Lovenox with INR 2.9 EPCDs placed and lovenox will be held due to elevated INR and hematuria 02/15 - Plan as #1 above Subjective Principal diagnosis: CHF exacerbation Interval history: Pt decompensated overnight - epinephrine was added and the patient was intubated for declining BP and respiratory status. He has had minimal UOP. His left arm swelling has continued to worsen and there is now a concern for necrotizing fasciitis. CT left UE with consult to hand surgery ordered. After talk with family about possible treatment options for nec fasc and the need for advanced care following surgery, the decision was made to change the patient to DNR-CC. Palliative care was consulted and the CT UE was cancelled. 1530 - pt was pronounced Objective PUL Vital signs: Last Vital Signs Temp 96.7 F L 02/15/18 05:00 Pulse 77 02/15/18 06:00 Resp 30 02/15/18 06:00 BP 88/62 02/15/18 06:00 Pulse Ox 100 02/15/18 06:00 General appearance: comatose Eyes: nonicteric ENT: oropharynx dry Neck: supple Effort: mildly labored Cardiovascular: regular rate and rhythm Gastrointestinal: soft, non-tender, non-distended Integumentary: other (worsening bruising and weeping of LUE) Extremities: edema (4+ all extremities), anasarca Ventilator Settings Ventilator Settings: Ventilator Settings, Last 8 Hours Ventilator Tidal Volume 500 Setting Ventilator Tidal Volume 500 Setting Ventilator Tidal Volume 500 Setting Ventilator Tidal Volume 500 Setting Ventilator Respiratory Rate 20 Setting Ventilator Respiratory Rate 20 Setting Ventilator Respiratory Rate 20 Setting Ventilator Respiratory Rate 20 Setting Actual Respiratory Rate 22 Actual Respiratory Rate 26 Actual Respiratory Rate 23 Positive End Expiratory 5 Pressure Positive End Expiratory 5 Pressure Positive End Expiratory 5 Pressure Positive End Expiratory 5 Pressure Peak Inspiratory Airway 6.6 Pressure Peak Inspiratory Airway 8.9 Pressure Results - Laboratory Findings CBC and BMP: 02/15/18 07:30 02/15/18 07:30 ABG ABG pH 7.26 pH Units (7.32-7.45) L 02/15/18 05:50 ABG pCO2 19 mmHg (35-45) L* 02/15/18 05:50 ABG pO2 163 mmHg (85-104) H D 02/15/18 05:50 ABG O2 Saturation 99 % (95-98) H 02/15/18 05:50 PT/INR, D-dimer PT 38.6 Seconds (9.4-12.1) H 02/14/18 16:20 Abnormal lab findings: Abnormal lab results WBC 21.0 K/mcL (4.3-11.1) H 02/15/18 04:15 RDW 16.7 % (11.5-14.5) H 02/15/18 04:15 Plt Count 57 K/mcL (140-400) L 02/15/18 04:15 MPV 13.5 fL (9.4-12.4) H 02/15/18 04:15 Band Neutrophils % 12.0 % (0-4) H 02/15/18 04:15 Metamyelocytes % 4.0 % (0) H 02/14/18 21:55 Neutrophils # 18.1 K/mcL (1.6-8.9) H 02/15/18 04:15 Lymphocytes # 0.4 K/mcL (0.6-4.6) L 02/15/18 04:15 Monocytes # 2.5 K/mcL (0.0-1.3) H 02/15/18 04:15 Nucleated RBCs/100 WBC 0.3 /100 WBC (0) H 02/15/18 04:15 Platelet Estimate Decreased (Normal) L 02/15/18 04:15 Large Platelets Present (Not Present) A 02/15/18 04:15 Immature Plt Fraction 19.6 % (1.1-6.1) H 02/15/18 04:15 Polychromasia 1+ (Not Present) A 02/15/18 04:15 Anisocytosis 1+ (Not Present) A 02/15/18 04:15 PT 38.6 Seconds (9.4-12.1) H 02/14/18 16:20 APTT 41.9 Seconds (26.0-36.0) H 02/13/18 17:19 Fibrinogen 464 mg/dL (169-393) H 02/14/18 16:20 ABG pH 7.26 pH Units (7.32-7.45) L 02/15/18 05:50 ABG pCO2 19 mmHg (35-45) L* 02/15/18 05:50 ABG pO2 163 mmHg (85-104) H D 02/15/18 05:50 ABG HCO3 9 mEq/L (21-27) L 02/15/18 05:50 ABG Total CO2 9 mEq/L (20-26) L 02/15/18 05:50 ABG O2 Saturation 99 % (95-98) H 02/15/18 05:50 ABG Base Excess -16 mEq/L (-2 to 3) L 02/15/18 05:50 Sodium 150 mEq/L (136-145) H D 02/15/18 04:15 BUN 45 mg/dL (8-23) H 02/15/18 04:15 Creatinine 2.42 mg/dL (0.70-1.30) H 02/15/18 04:15 Est GFR ( Amer) 31 (> 60) L 02/15/18 04:15 Est GFR (Non-Af Amer) 26 (> 60) L 02/15/18 04:15 Glucose 144 mg/dL (70-105) H 02/15/18 04:15 Calculated Osmolality 324 (280-300) H 02/15/18 04:15 Lactic Acid > 10.0 mmol/L (0.5-2.2) H* 02/15/18 04:15 Calcium 5.9 mg/dL (8.6-10.3) L* 02/15/18 04:15 Venous Ioniz Calcium 0.71 mmol/L (1.15-1.35) L 02/15/18 04:37 Phosphorus 6.7 mg/dL (2.7-4.5) H 02/15/18 04:15 Total Bilirubin 1.9 mg/dL (0.3-1.0) H 02/15/18 04:15 Direct Bilirubin 1.5 mg/dL (0.0-0.2) H 02/14/18 15:15 AST 215 Units/L (13-39) H 02/15/18 04:15 ALT 178 Units/L (7-52) H 02/15/18 04:15 Creatine Kinase 238 Units/L (30-223) H 02/14/18 21:55 Troponin I 0.18 ng/mL (< 0.04) H* 02/14/18 15:15 B-Natriuretic Peptide 629 pg/mL (Less than 100) H 02/13/18 17:19 Serum Total Protein 3.4 g/dL (6.4-8.9) L 02/15/18 04:15 Albumin 2.0 g/dL (3.5-5.7) L 02/15/18 04:15 Globulin 1.4 g/dL (2.4-3.5) L 02/15/18 04:15 Urine Clarity Cloudy (Clear) A 02/13/18 19:32 Urine Bilirubin Small (Negative) H 02/13/18 19:32 Ur Leukocyte Esterase Moderate (Negative) H 02/13/18 19:32 Urine Microscopic WBC 15-30 per hpf (0-3) H 02/13/18 19:32 Ur Squamous Epith Cells Moderate per lpf (None-Few) H 02/13/18 19:32 Hyaline Casts Moderate per lpf (None-Few) H 02/13/18 19:32 Streptococcus sp PCR DETECTED (Not Detect) A 02/14/18 05:29 Group A Strep DNA DETECTED (Not Detect) A 02/14/18 05:29 - Microbiology Findings Microbiology Findings: Microbiology, Last 48 Hours 02/14/18 05:29 Blood Culture - Preliminary Peripheral Venipuncture Gram Positive Cocci - Chains 02/14/18 05:20 Blood Culture - Preliminary Peripheral Venipuncture Culture is incubating and being continuously monitored for growth. Final report to follow. - Clinical Findings Intake & Output: Intake & Output 02/14/18 02/14/18 02/15/18 15:59 23:59 07:59 Intake Total 2174 / 2174 408 / 408 1231 / 1231 Output Total 80 / 80 15 45 / 45 Balance 2094 / 2094 393 / 393 1186 / 1186
[2018-02-15 07:44] LABS: Hemoglobin 14.7 g/dL (12.9-16.9); Mean Corpuscular Volume 96.4 fL (83.0-100.0); Red Cell Distribution Width 17.4 % (11.5-14.5)
[2018-02-15 07:46] LABS: Immature Platelets 20.3 % (1.1-6.1)
--- NOTE | 2018-02-15 07:46 | Urology Progress Note ---
Date of Encounter: 02/15/18 Time of Encounter: 07:39 - Assessment and Plan (1) Hematuria Current Visit: Yes Status: Acute Assessment and plan: 83 year old man with gross hematuria. He is now intubated and sedated. Okay to hand irrigate catheter. Urology will follow along. Qualifiers: Hematuria type: gross Qualified Code(s): R31.0 - Gross hematuria Progress Note Narrative: Patient seen this morning. He is now intubated and sedated. Urine output has been scant. Catheter in good position with eric colored urine. Objective Initial Vital Signs Temp Pulse Resp BP Pulse Ox 97.6 F 87 22 92/71 99 02/13/18 16:21 02/13/18 16:21 02/13/18 16:21 02/13/18 16:21 02/13/18 16:21 - General physical appearance Present: other (intubated, sedated) - Genitourinary Present: normal penis with no external lesions (catheter in place with eric colored urine.) - Labs 02/15/18 04:15 02/15/18 04:15 Diabetes panel 02/14/18 02/14/18 02/15/18 Range/Units 15:15 21:55 04:15 Sodium 131 L 129 L 150 H D (136-145) mEq/L Potassium 4.2 4.5 3.8 (3.5-5.1) mEq/L Chloride 99 97 L 102 (98-107) mEq/L Carbon Dioxide 16 L 13 L 27 (23-29) mEq/L BUN 43 H 46 H 45 H (8-23) mg/dL Creatinine 2.25 H 2.64 H 2.42 H (0.70-1.30) mg/dL Glucose 134 H 123 H 144 H (70-105) mg/dL Calcium 7.6 L 7.8 L 5.9 L* (8.6-10.3) mg/dL AST 75 H 215 H (13-39) Units/L ALT 96 H 178 H (7-52) Units/L Alkaline Phosphatase 122 H 73 (34-104) Units/L Albumin 2.8 L 2.0 L (3.5-5.7) g/dL Thyroid panel 02/14/18 Range/Units 09:18 TSH 4.778 (0.340-5.600) mcIU/mL Calcium panel 02/14/18 02/14/18 02/15/18 Range/Units 15:15 21:55 04:15 Calcium 7.6 L 7.8 L 5.9 L* (8.6-10.3) mg/dL Phosphorus 6.7 H (2.7-4.5) mg/dL Albumin 2.8 L 2.0 L (3.5-5.7) g/dL Pituitary panel 02/14/18 02/14/18 02/14/18 Range/Units 09:18 15:15 21:55 Sodium 131 L 129 L (136-145) mEq/L Potassium 4.2 4.5 (3.5-5.1) mEq/L Chloride 99 97 L (98-107) mEq/L Carbon Dioxide 16 L 13 L (23-29) mEq/L BUN 43 H 46 H (8-23) mg/dL Creatinine 2.25 H 2.64 H (0.70-1.30) mg/dL Glucose 134 H 123 H (70-105) mg/dL Calcium 7.6 L 7.8 L (8.6-10.3) mg/dL TSH 4.778 (0.340-5.600) mcIU/mL 02/15/18 Range/Units 04:15 Sodium 150 H D (136-145) mEq/L Potassium 3.8 (3.5-5.1) mEq/L Chloride 102 (98-107) mEq/L Carbon Dioxide 27 (23-29) mEq/L BUN 45 H (8-23) mg/dL Creatinine 2.42 H (0.70-1.30) mg/dL Glucose 144 H (70-105) mg/dL Calcium 5.9 L* (8.6-10.3) mg/dL TSH (0.340-5.600) mcIU/mL Adrenal panel 02/14/18 02/14/18 02/15/18 Range/Units 15:15 21:55 04:15 Sodium 131 L 129 L 150 H D (136-145) mEq/L Potassium 4.2 4.5 3.8 (3.5-5.1) mEq/L Chloride 99 97 L 102 (98-107) mEq/L Carbon Dioxide 16 L 13 L 27 (23-29) mEq/L BUN 43 H 46 H 45 H (8-23) mg/dL Creatinine 2.25 H 2.64 H 2.42 H (0.70-1.30) mg/dL Glucose 134 H 123 H 144 H (70-105) mg/dL Calcium 7.6 L 7.8 L 5.9 L* (8.6-10.3) mg/dL Total Bilirubin 2.7 H 1.9 H (0.3-1.0) mg/dL AST 75 H 215 H (13-39) Units/L ALT 96 H 178 H (7-52) Units/L Alkaline Phosphatase 122 H 73 (34-104) Units/L Albumin 2.8 L 2.0 L (3.5-5.7) g/dL Consult Discharge Plan - Plan Referrals: Tamiko Cortes MD [Primary Care Provider] -
[2018-02-15 07:52] LABS: Hematocrit 45.8 % (37.5-50.1); Mean Corpuscular HGB Conc 32.1 g/dL (31.6-35.5); Mean Corpuscular Hemoglobin 30.9 pg (28.0-33.3); Mean Platelet Volume 13.8 fL (9.4-12.4); Nucleated Red Blood Cells 0.2 /100 WBC (0); Platelet Count 67 K/mcL (140-400); Red Blood Count 4.75 M/mcL (4.19-5.50)
[2018-02-15 08:06] LABS: Albumin 2.6 g/dL (3.5-5.7); Albumin/Globulin Ratio 1.4 (1.1-2.2); Bilirubin,Total 2.6 mg/dL (0.3-1.0); Calcium 7.6 mg/dL (8.6-10.3); Globulin 1.8 g/dL (2.4-3.5); Potassium 4.6 mEq/L (3.5-5.1); Total Protein 4.4 g/dL (6.4-8.9)
--- NOTE | 2018-02-15 08:16 | Orthopedic Consult Note ---
Date of Encounter: 02/15/18 Time of Encounter: 07:45 Assessment and Plan (1) Blister of left upper arm with infection Current Visit: Yes Status: Acute I did have a very long and candid discussion with the patient's who is present and at the bedside. This patient likely has a significant infection of the left upper extremity and possibly necrotizing fasciitis. Attempts at eradicating the infection would require a stat CT scan to evaluate the infection further, immediate reversal of the INR, and a significant operation including upper extremity debridement and possible amputation depending on the nature and intraoperative findings. The patient does have a supratherapeutic INR and given his multisystem organ failure currently as well as being on pressors I feel that such an extensive operation would have significant perioperative morbidity. I did discuss this at great length along with the ICU team and the patient's and at this point the patient's wishes to avoid aggressive treatment and employ comfort care measures. I anticipate a consult to the palliative care services. I will be available as needed for any changes in the family's wishes. Qualifiers: Qualified Code(s): S40.822A - Blister (nonthermal) of left upper arm, initial encounter; L08.9 - Local infection of the skin and subcutaneous tissue, unspecified History of Present Illness HPI: Mr. Taylor is a 83 year old male multiply medically comorbid male who is currently admitted to the ICU for CHF exacerbation and is also being managed for a left upper extremity DVT on Coumadin. The patient is septic with bacteremia and in shock and is currently on pressors. I was asked to evaluate the patient due to concerns for a necrotizing soft tissue infection regarding the left upper extremity. On my evaluation the patient is currently intubated and sedated and is noncommunicative. Past Med Surg Social Fam HX - Past Medical History Medical history: atrial fibrillation, CHF, coronary artery disease, hyperlipidemia, hypertension, myocardial infarction, osteoporosis Psychiatric history: no psych history - Past Surgical History Surgical History: pacemaker/AICD Additional surgical history: mitral valve replacement - Social History Smoking Status: Former smoker Smokeless Tobacco Status: No Alcohol use: none Drug use: none - Family History Mother Hx Family Cardiac Disorders: Yes ([place] at 51) Hx Family Cancer: Yes (leukemia) Father Living Status: Hx Family Neurologic Disorders: Yes (CVA) Medications and Allergies Atorvastatin Calcium [Lipitor] 80 mg PO HS 01/15/17 [History] Finasteride [Proscar] 5 mg PO DAILY 01/15/17 [History] Metoprolol Tartrate [Lopressor] 25 mg PO BID 01/15/17 [History] Spironolactone [Aldactone] 25 mg PO BID 01/15/17 [History] Tamsulosin [Flomax] 0.4 mg PO DAILY 01/15/17 [History] Torsemide [Demadex] 20 mg PO DAILY 01/15/17 [History] Folic Acid/Multivit-Min/Lutein [Cvs Spectravite Adult Tab Chew] 1 tab PO DAILY 02/01/17 [History] Glucosamine/Chondroitin Sulf A [Cvs Glucosamine-Chondroit Chew] 1 tab PO BID 02/01/17 [History] Melatonin 10 mg PO HS 02/05/18 [History] Ipratropium [ATROVENT Inhaler] 2 puff IH QID PRN 02/13/18 [History] Warfarin Sodium 5 mg PO DAILY 02/13/18 [History] Allergy/AdvReac Type Severity Reaction Status Date / Time Sulfa (Sulfonamide Allergy Rash Verified 02/05/18 11:59 Antibiotics) lisinopril AdvReac Cough Verified 02/05/18 11:59 ROS unobtainable: due to mental status Physical Exam - Constitutional Vitals: Temp Pulse Resp BP Pulse Ox 96.7 F L 77 24 99/61 100 02/15/18 05:00 02/15/18 06:00 02/15/18 07:32 02/15/18 07:32 02/15/18 07:32 CONSTITUTIONAL -Vitals reviewed -The patient is well developed, well nourished, well groomed PSYCHIATRIC -Non-connective LEFT UPPER EXTREMITY Inspection shows that the skin and the soft tissue are intact with significant generalized edema and swelling about the entire extremity with ecchymosis diffusely displayed from the fingertips to the mid brachium. There is associated generalized loosely filled serous blistering throughout. No erythema. I am not able to evaluate for tenderness given his mental status. Full passive motion of the shoulder, elbow, wrist, and digits. I am not able to perform neurologic exam given his mental status. The fingertips have sluggish capillary refill. No imaging is available of the left upper extremity. Results - Labs Result Diagrams: 02/15/18 07:30 02/15/18 07:30 Labs: Abnormal lab results WBC 24.1 K/mcL (4.3-11.1) H 02/15/18 07:30 RDW 17.4 % (11.5-14.5) H 02/15/18 07:30 Plt Count 67 K/mcL (140-400) L 02/15/18 07:30 MPV 13.8 fL (9.4-12.4) H 02/15/18 07:30 Band Neutrophils % 12.0 % (0-4) H 02/15/18 04:15 Metamyelocytes % 4.0 % (0) H 02/14/18 21:55 Neutrophils # 18.1 K/mcL (1.6-8.9) H 02/15/18 04:15 Lymphocytes # 0.4 K/mcL (0.6-4.6) L 02/15/18 04:15 Monocytes # 2.5 K/mcL (0.0-1.3) H 02/15/18 04:15 Nucleated RBCs/100 WBC 0.2 /100 WBC (0) H 02/15/18 07:30 Platelet Estimate Decreased (Normal) L 02/15/18 04:15 Large Platelets Present (Not Present) A 02/15/18 04:15 Immature Plt Fraction 20.3 % (1.1-6.1) H 02/15/18 07:30 Polychromasia 1+ (Not Present) A 02/15/18 04:15 Anisocytosis 1+ (Not Present) A 02/15/18 04:15 PT 38.6 Seconds (9.4-12.1) H 02/14/18 16:20 APTT 41.9 Seconds (26.0-36.0) H 02/13/18 17:19 Fibrinogen 464 mg/dL (169-393) H 02/14/18 16:20 ABG pH 7.26 pH Units (7.32-7.45) L 02/15/18 05:50 ABG pCO2 19 mmHg (35-45) L* 02/15/18 05:50 ABG pO2 163 mmHg (85-104) H D 02/15/18 05:50 ABG HCO3 9 mEq/L (21-27) L 02/15/18 05:50 ABG Total CO2 9 mEq/L (20-26) L 02/15/18 05:50 ABG O2 Saturation 99 % (95-98) H 02/15/18 05:50 ABG Base Excess -16 mEq/L (-2 to 3) L 02/15/18 05:50 Sodium 128 mEq/L (136-145) L D 02/15/18 07:30 Chloride 97 mEq/L (98-107) L 02/15/18 07:30 Carbon Dioxide 7 mEq/L (23-29) L* 02/15/18 07:30 BUN 48 mg/dL (8-23) H 02/15/18 07:30 Creatinine 2.65 mg/dL (0.70-1.30) H 02/15/18 07:30 Est GFR ( Amer) 28 (> 60) L 02/15/18 07:30 Est GFR (Non-Af Amer) 23 (> 60) L 02/15/18 07:30 Glucose 147 mg/dL (70-105) H 02/15/18 07:30 Lactic Acid > 10.0 mmol/L (0.5-2.2) H* 02/15/18 07:30 Calcium 7.6 mg/dL (8.6-10.3) L 02/15/18 07:30 Venous Ioniz Calcium 0.71 mmol/L (1.15-1.35) L 02/15/18 04:37 Phosphorus 6.7 mg/dL (2.7-4.5) H 02/15/18 04:15 Total Bilirubin 2.6 mg/dL (0.3-1.0) H 02/15/18 07:30 Direct Bilirubin 1.5 mg/dL (0.0-0.2) H 02/14/18 15:15 AST 666 Units/L (13-39) H 02/15/18 07:30 ALT 468 Units/L (7-52) H 02/15/18 07:30 Creatine Kinase 493 Units/L (30-223) H 02/15/18 07:30 Troponin I 0.18 ng/mL (< 0.04) H* 02/14/18 15:15 B-Natriuretic Peptide 629 pg/mL (Less than 100) H 02/13/18 17:19 Serum Total Protein 4.4 g/dL (6.4-8.9) L 02/15/18 07:30 Albumin 2.6 g/dL (3.5-5.7) L 02/15/18 07:30 Globulin 1.8 g/dL (2.4-3.5) L 02/15/18 07:30 Urine Clarity Cloudy (Clear) A 02/13/18 19:32 Urine Bilirubin Small (Negative) H 02/13/18 19:32 Ur Leukocyte Esterase Moderate (Negative) H 02/13/18 19:32 Urine Microscopic WBC 15-30 per hpf (0-3) H 02/13/18 19:32 Ur Squamous Epith Cells Moderate per lpf (None-Few) H 02/13/18 19:32 Hyaline Casts Moderate per lpf (None-Few) H 02/13/18 19:32 Streptococcus sp PCR DETECTED (Not Detect) A 02/14/18 05:29 Group A Strep DNA DETECTED (Not Detect) A 02/14/18 05:29 H & H 02/14/18 02/14/18 02/15/18 Range/Units 15:15 21:55 04:15 Hgb 15.0 15.4 13.7 D (12.9-16.9) g/dL Hct 44.1 47.6 41.4 (37.5-50.1) % 02/15/18 Range/Units 07:30 Hgb 14.7 (12.9-16.9) g/dL Hct 45.8 (37.5-50.1) % All other labs normal. Consult Discharge Plan - Plan Referrals: Tamiko Cortes MD [Primary Care Provider] -
[2018-02-15 08:24] LABS: Lymphocytes # 2.9 K/mcL (0.6-4.6); Monocytes # 0.5 K/mcL (0.0-1.3); Neutrophils # 19.3 K/mcL (1.6-8.9)
[2018-02-15 08:25] LABS: Platelet Estimate Decreased (Normal); Reactive Lymphocytes Present (Not Present)
[2018-02-15 08:36] VITALS: BP 102/71
[2018-02-15] MEDS: Clindamycin 900 MG/50 ML 900 MG/50 ML IV.SOLN IVPB SCH (08:50)
[2018-02-15] MEDS: Piperacillin/Tazobactam 3.375 GM in 0.9 % Sodium Chloride Mini Bag 100 ML IVPB SCH (08:51)
[2018-02-15] MEDS: Pantoprazole 40 MG VIAL IVP SCH (08:51)
[2018-02-15] MEDS ORDERED: Vancomycin 1 EACH in EMPTY BAG 1 EACH IVPB SCH (09:00)
[2018-02-15] MEDS ORDERED: *HR* LORazepam 2 MG/ML VIAL IVP PRN (09:27)
[2018-02-15] MEDS: *HR* FentaNYL (PF) 100 MCG/2 ML VIAL IVP PRN ×2 (09:39→11:06)
--- NOTE | 2018-02-15 11:07 | Event Note ---
Date of Encounter: 02/15/18 Time of Encounter: 11:05 Labs reviewed. I spoke with the ICU team and the ICU nurse. The family has decided with withdraw all care. The patient is DNRCC. Pallliative team has been consulted. Will sign off. Thank you for the consult. Please call with any questions or concerns.
--- NOTE | 2018-02-15 11:12 | Palliative - Consult Note ---
Date of Encounter: 02/15/18 Time of Encounter: 08:50 - Assessment and Plan (1) Dyspnea Current Visit: Yes Status: Acute Assessment and plan: Fentanyl IV push prior to extubation and will have available every 30 min PRN. Provide oxygen per nasal cannula Qualifiers: Dyspnea type: unspecified Qualified Code(s): R06.00 - Dyspnea, unspecified (2) Generalized pain Current Visit: Yes Status: Acute Assessment and plan: Also utilize Fentanyl for any sign of discomfort. (3) Restlessness Current Visit: Yes Status: Acute Assessment and plan: Lorazepam 1mg prior to extubation and every 2 hours PRN (4) Goals of care, counseling/discussion Current Visit: Yes Status: Acute Assessment and plan: Met with , 2 daughters, and granddaughter. They have made decision to transition to DNRCC and desire compassionate extubation. They would like to proceed this am with liberation from vent. Vasopressors/atb will be discontinued as well. If he is stable a few hours after extubation, could transition to palliative care bed, but may not survive long. Father Ammon has been here to see pt and give last rights. Provided emotional support to family. (5) Acute systolic CHF (congestive heart failure) Current Visit: Yes Status: Acute (6) Deep venous thrombosis of upper extremity Current Visit: No Status: Acute Qualifiers: Affected thrombotic vein of extremity: unspecified vein of extremity Chronicity: acute Laterality: left Qualified Code(s): I82.622 - Acute embolism and thrombosis of deep veins of left upper extremity (7) Acute respiratory failure with hypoxia Current Visit: Yes Status: Acute (8) Septic shock Current Visit: Yes Status: Acute Palliative-CN HPI - Data of Consult Consult date: 02/15/18 Requesting Physician: Gael Florentino MD Primary Care Provider: Tamiko Cortes MD - Consult Narrative History of present illness: Mr. Taylor is a 83 year old male with a series of critical health events, originally presented to the hospital with complaints of CHF/lower extremity edema. He decompensated quickly after admission, and was found to be in septic shock with multi organ failure, possible necrotizing faciitis to arm. He was awaiting a bed at [facility], they had accepted patient, but no bed was av ailable. His condition further declined last pm requiring intubation and addition of vasopressors. Discussion were held with family and code status was changed to DNRCC. Palliative care was consulted to assist with further goals of care discussion, symtpom management, and compassionate extubation. CC: Gael Florentino MD - Time Spent with Patient Time: Total time spent is greater than 50% in coordination of care (as documented) at patient's floor/unit and/or counseling patient: Greater than 35 minutes Past Med Surg Social Fam HX - Past Medical History Medical history: atrial fibrillation, CHF, coronary artery disease, hyperlipidemia, hypertension, myocardial infarction, osteoporosis Psychiatric history: no psych history - Past Surgical History Surgical History: pacemaker/AICD Additional surgical history: mitral valve replacement - Social History Smoking Status: Former smoker Smokeless Tobacco Status: No Alcohol use: none Drug use: none - Family History Mother Hx Family Cardiac Disorders: Yes ([place] at 51) Hx Family Cancer: Yes (leukemia) Father Living Status: Hx Family Neurologic Disorders: Yes (CVA) Medications and Allergies Atorvastatin Calcium [Lipitor] 80 mg PO HS 01/15/17 [History] Finasteride [Proscar] 5 mg PO DAILY 01/15/17 [History] Metoprolol Tartrate [Lopressor] 25 mg PO BID 01/15/17 [History] Spironolactone [Aldactone] 25 mg PO BID 01/15/17 [History] Tamsulosin [Flomax] 0.4 mg PO DAILY 01/15/17 [History] Torsemide [Demadex] 20 mg PO DAILY 01/15/17 [History] Folic Acid/Multivit-Min/Lutein [Cvs Spectravite Adult Tab Chew] 1 tab PO DAILY 02/01/17 [History] Glucosamine/Chondroitin Sulf A [Cvs Glucosamine-Chondroit Chew] 1 tab PO BID 02/01/17 [History] Melatonin 10 mg PO HS 02/05/18 [History] Ipratropium [ATROVENT Inhaler] 2 puff IH QID PRN 02/13/18 [History] Warfarin Sodium 5 mg PO DAILY 02/13/18 [History] Allergy/AdvReac Type Severity Reaction Status Date / Time Sulfa (Sulfonamide Allergy Rash Verified 02/05/18 11:59 Antibiotics) lisinopril AdvReac Cough Verified 02/05/18 11:59 ROS unobtainable: due to endotracheal tube, due to mental status Palliative Care-Exam - Constitutional Vitals: Temp Pulse Resp BP Pulse Ox 96.7 F L 83 23 102/71 100 02/15/18 05:00 02/15/18 08:18 02/15/18 08:00 02/15/18 08:00 02/15/18 09:42 General appearance: Present: no acute distress - Head Head Exam: Present: normal inspection, normocephalic - Eye Pupils: Present: fixed - Respiratory Respiratory exam: Present: decreased breath sounds, CTAB - Cardiovascular Cardiovascular exam: Present: +S1, +S2, tachycardia - GI/Abdominal Exam GI/Abdominal exam: Present: distended, soft - Additional comments: Hematuria - Extremities Exam Additional comments: Left arm with no palpable pulses. Weeping bloody fluid. - Neurological Exam Additional comments: Unresponsive to verbal and tactile stimuli - Skin Skin exam: Present: dry, pallor Internal Medicine - CN: Reslt - Labs CBC & Chem 7: 02/15/18 07:30 02/15/18 07:30 Labs: Short CBC 02/14/18 02/14/18 02/15/18 Range/Units 15:15 21:55 04:15 WBC 12.4 H D 18.3 H 21.0 H (4.3-11.1) K/mcL Hgb 15.0 15.4 13.7 D (12.9-16.9) g/dL Hct 44.1 47.6 41.4 (37.5-50.1) % Plt Count 79 L 72 L 57 L (140-400) K/mcL Neutrophils # 9.4 H 15.4 H 18.1 H (1.6-8.9) K/mcL 02/15/18 Range/Units 07:30 WBC 24.1 H (4.3-11.1) K/mcL Hgb 14.7 (12.9-16.9) g/dL Hct 45.8 (37.5-50.1) % Plt Count 67 L (140-400) K/mcL Neutrophils # 19.3 H (1.6-8.9) K/mcL BMP 02/14/18 02/14/18 02/15/18 15:15 21:55 04:15 Sodium 131 L 129 L 150 H D Potassium 4.2 4.5 3.8 Chloride 99 97 L 102 Carbon Dioxide 16 L 13 L 27 BUN 43 H 46 H 45 H Creatinine 2.25 H 2.64 H 2.42 H Glucose 134 H 123 H 144 H Calcium 7.6 L 7.8 L 5.9 L* 02/15/18 07:30 Sodium 128 L D Potassium 4.6 Chloride 97 L Carbon Dioxide 7 L* BUN 48 H Creatinine 2.65 H Glucose 147 H Calcium 7.6 L Cardiac Enzymes 02/14/18 Range/Units 15:15 Troponin I 0.18 H* (< 0.04) ng/mL Liver Function 02/14/18 02/15/18 02/15/18 Range/Units 15:15 04:15 07:30 Total Bilirubin 2.7 H 1.9 H 2.6 H (0.3-1.0) mg/dL Direct Bilirubin 1.5 H (0.0-0.2) mg/dL AST 75 H 215 H 666 H (13-39) Units/L ALT 96 H 178 H 468 H (7-52) Units/L Alkaline Phosphatase 122 H 73 92 (34-104) Units/L Albumin 2.8 L 2.0 L 2.6 L (3.5-5.7) g/dL - ABG Interpretation ABG results: ABG ABG pH 7.26 pH Units (7.32-7.45) L 02/15/18 05:50 ABG pCO2 19 mmHg (35-45) L* 02/15/18 05:50 ABG pO2 163 mmHg (85-104) H D 02/15/18 05:50 ABG O2 Saturation 99 % (95-98) H 02/15/18 05:50 PT/INR, D-dimer PT 38.6 Seconds (9.4-12.1) H 02/14/18 16:20 - Impressions Impressions Echocardiogram Limited Views 02/14/18 15:25 Impressions: LVEF 45%. Mild global LV systolic dysfunction. Atypical septal motion consistent with post-operative status. There is no LV thrombus. Definity echo contrast was used. RV is moderately dilated. Function grossly appears mild to moderately reduced. When compared to study 02/05/2018, LV systolic function appears reduced. Left Ventricular Wall Motion: Rest Echo Findings The apex, apical inferior, mid inferior, basal inferior, apical anterior, mid anterior, basal anterior, apical lateral, mid anterior lateral, basal anterior lateral, mid inferior lateral and basal inferior lateral quinones were hypokinetic. The apical septal, mid inferior septal, basal inferior septal, mid anterior septal and basal anterior septal quinones were dyskinetic. Findings: Study Quality * Technically challenging due to clinical status. ECG Findings * Unclear underlying rhythm, possibly paced. Left Ventricle * Atypical septal motion consistent with post-operative status. * LVEF 45%. * There is no LV thrombus. * Definity echo contrast was used. Right Ventricle * RV is moderately dilated. Function grossly appears reduced. Aorta * Normally sized aortic root. Pericardium * There is no pericardial effusion present. Chest X-Ray 02/15/18 03:52 IMPRESSION: 1. Tubes and lines as above. 2. Bibasilar atelectasis or pneumonia. D/ / Perez Cedeno MD / Perez Cedeno MD Interpreting Provider: Perez Cedeno MD Consult Discharge Plan - Plan Referrals: Tamiko Cortes MD [Primary Care Provider] - Palliative Quality Palliative Quality: Screen for Code Status: Yes, Screen for Goals of Care: Yes, Screen for Pain: NA, If Pain Regimen Started, Initiate Bowel Regimen: NA, Screen for Nausea/Vomitting: NA Code Status: 02/14/18 07:51 DNR [Resuscitation Status: Active] [RES] Routine Comment: Resuscitation Status: DNR-Comfort Care-Arrest 02/15/18 08:15 DNR [Resuscitation Status: Active] [RES] Routine Comment: Resuscitation Status: DNR-Comfort Care
--- NOTE | 2018-02-15 16:32 | Death Note ---
<Yael Jiame R - Last Filed: 02/15/18 16:30> Discharge Sum: Summary - Date and Time Date of admission: 02/13/18 21:27 Date of : 02/15/18 Time of : 15:30 - Summary Details: Patient presented to the emergency room on February 13 with worsening lower extremity edema related to a CHF exacerbation. He was receiving treatment for a LUE DVT diagnosed on 02/12. On the day of this admission his CBC was nearly within normal limits for him. His INR was 1.9, he had elevated BUN/creatinine of 35/1.33. Troponin was 0.05, which is normal for him as well. BNP was not elevated from his previous admission at 629, whereas at his last admission it was 1307. UA was negative for blood and nitrites, with moderate leukocyte esterase. A chest x-ray was ordered and showed stable cardiomegaly, fluctuating right basilar atelectasis. Throughout his ER stay the patient continue to request being transferred to the [facility], where he receives most of his medical care. [facility] was called and the patient was accepted, however there were no available beds. They recommended that the patient stay at [place] until an ICU bed would become available. The patient desatted while in the ED and was transferred to the floor for oxygenation via NRB mask. He then began having unstable BPs and was transferred to the ICU for central line placement and pressor medications the morning of February 14. He received max dose Levophed, vasopressin and epinephrine to keep his MAP above 60. Cardiology and nephrology were consulted due to elevation in troponin and oliguria. The patient began complaining of extreme left arm pain and swelling that afternoon. Concern for compartment syndrome vs infection arose. Vascular surgery was consulted and saw the patient but determined it was not an arterial problem. Cpks were drawn starting at 0530 with an initial value of 130, then became slightly elevated at 238 that night. The patient began having more problems with his work of breathing and the decision was made to intubate him overnight. The morning of 02/15 a repeat cpk was further elevated at 493. The concern arose for necrotizing fasciitis in the arm and hand surgery was consulted. A CT non- contrast study of the left upper extremity was ordered and further courses of action were explained to the family. At this time family decided that the patient would not have wanted to undergo such aggressive measures such as surgery and a probable half-way stay, and the decision was made to change the patient to DNR-CC. The patient was extubated at 1100 and was taken off vasopressors. The family was allowed to remain at bedside. The patient was pronounced at 1530 on February 15. - Additional Data Confirmation of as documented by pronouncing clinician: no pulse, no respirations, no heart sounds, pupils fixed and dilated Family: at bedside Attending/PCP notified?: No Attending physician: Gael Florentino MD Was code activated?: No Autopsy requested?: No compliance examiner notified?: No Organ bank notified?: No Advance directives: Yes (DNR-CC) Hospice patient?: No Discharge Sum: Diag - PCOD Probable Cause of : Cardiorespiratory arrest Discharge Sum: Prov - Provider Primary care physician: Tamiko Cortes MD Admitting clinician: Gael Florentino Attending physician on admission: Gael Florentino Consults: 02/14/18 04:59 Consult to Cardiology [CONS] Routine Comment: Consulting Provider: Cardiology Chrissie Reason for Consult: History of CHF, prosthetic heart valves, pace maker, chronically elevated troponin. Recent DVT in upper extremity, hematuria on warfarin and lovenox Call Completed: No 02/14/18 05:01 Consult to Urology [CONS] Routine Consulting Provider: Urology Chrissie Reason for Consult: Hematuria Call Completed: No 02/14/18 07:21 Consult to Critical Care [CONS] Routine Consulting Provider: Pulm Crit [facility] [place] Reason for Consult: hypotension, CHF, Fluid overload Call Completed: Yes 02/14/18 13:55 Consult to Vascular Surgery [CONS] Stat Consulting Provider: Vascular Surgery [place] Reason for Consult: worsening left arm swelling Hx DVT weak pulses on doppler Call Completed: Yes 02/14/18 15:25 Consult to Nephrology [CONS] Stat Consulting Provider: [facility]ney [place] Reason for Consult: HF pt, oluguria, probably cardiorenal syndrome Call Completed: Yes 02/15/18 08:14 Consult to Palliative Care [CONS] Stat Comment: Consulting Provider: Palliative Care [place] Reason for Consult: DNR comfort care Call Completed: Yes Pronouncing clinician: Yael Jaime <Fer Johnson - Last Filed: 02/16/18 06:36> Discharge Sum: Summary - Date and Time Date of admission: 02/13/18 21:27 - Additional Data Attending physician: Gael Florentino MD Discharge Sum: Prov - Provider Primary care physician: Tamiko Cortes MD Consults: 02/14/18 04:59 Consult to Cardiology [CONS] Routine Comment: Consulting Provider: Cardiology [place] Reason for Consult: History of CHF, prosthetic heart valves, pace maker, chronically elevated troponin. Recent DVT in upper extremity, hematuria on warfarin and lovenox Call Completed: No 02/14/18 05:01 Consult to Urology [CONS] Routine Consulting Provider: Urology [place] Reason for Consult: Hematuria Call Completed: No 02/14/18 07:21 Consult to Critical Care [CONS] Routine Consulting Provider: Pulm Crit [facility] Reason for Consult: hypotension, CHF, Fluid overload Call Completed: Yes 02/14/18 13:55 Consult to Vascular Surgery [CONS] Stat Consulting Provider: Vascular Surgery Chriss[facility] Reason for Consult: worsening left arm swelling Hx DVT weak pulses on doppler Call Completed: Yes 02/14/18 15:25 Consult to Nephrology [CONS] Stat Consulting Provider: [facility] [place]/[facility] Reason for Consult: HF pt, oluguria, probably cardiorenal syndrome Call Completed: Yes 02/15/18 08:14 Consult to Palliative Care [CONS] Stat Comment: Consulting Provider: Palliative [facility] [place] Reason for Consult: DNR comfort care Call Completed: Yes - Attending Attestation I examined this patient and my medical decision-making was reviewed with the Resident Physician. I agree with the documented findings, disposition and treatment plan as described except to the extent set forth below. We independently had [id number] contact with the patient
--- NOTE | 2018-02-15 21:21 | Electrocardiograph Report ---
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
--- NOTE | 2018-02-15 21:24 | Electrocardiograph Report ---
[address] [address] Test Date: 2018-02-13 Pat Name: Pierre Taylor Department: [id number] Room: [facility] Gender: M [employer] Dealer: : 1935 Requested By: Amilcar Baig Order Number: [id number] Reading MD: Mary Anne Sinclair Measurements Intervals [place] Rate: 85 P: [place]: QRS: 230 QRSD: 151 T: 84 QT: 423 QTc: 503 Interpretive Statements V PACED COMPLEXES Electronically Signed On 02-15-2018 21:22:26 EDT by Mary Anne Sinclair
[2018-02-15] MEDS ORDERED: *HR* Midazolam HCl 5 MG/5 ML VIAL IVP ONE (21:28)
== END 2018-02-15 15:30 | disposition expired ==
LOC: 2ANU 16:10 → EMEROOARM 16:10 → 2ANU 22:03 → 2NNU 02-14 02:55 → ICNU 02-14 07:04
PROVIDERS: ADMIT Family Medicine; ATTEND Family Medicine